=== PATIENT | female | born 1940 | race Caucasian/White ===

== ENCOUNTER 2025-04-01 01:29 | Inpatient (IN) | payer MEDICARE, BC, SELFPAY ==
[2025-03-31 22:17] VITALS: BP 155/63
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
[2025-03-31] MEDS: DILAUDID 0.5 MG IV (22:58)
[2025-03-31 23:00] VITALS: BP 127/87
[2025-03-31 23:02] VITALS: BP 127/87
[2025-03-31 23:12] LABS: % Basophils 0.6 % (0-2); % Eosinophils 1.6 % (0-6); % Lymphocytes 15.1 % (20.5-51.1); % Monocytes 5.3 % (1.7-9.3); % Neutrophils 76.4 % (42.2-75.2); Absolute Basophils 0.1 10^3/uL (0-0.2); Absolute Eosinophils 0.2 10^3/uL (0-0.7); Absolute Immature Granulocytes 0.1 10^3/uL (0-0.05); Absolute Lymphocytes 1.7 10^3/uL (1.2-3.4); Absolute Monocytes 0.6 10^3/uL (0.1-0.6); Absolute Neutrophils 8.6 10^3/uL (1.4-6.5); Hematocrit 34.6 % (37.0-47.0); Hemoglobin 11.7 g/dL (12.0-16.0); Mean Corp Hgb Conc. 33.8 g/dL (33.0-37.0); Mean Corpuscular Hgb 30.1 pg (27.0-31.0); Mean Corpuscular Volume 88.9 fL (81.0-99.0); Mean Platelet Volume 8.8 fL (7.4-10.4); Nucleated Red Blood Cells % 0 %; Platelet Count 335 10^3/uL (130-400); Red Blood Cell Count 3.89 10^6/uL (4.20-5.40); Red Cell Dist. Width 12.6 % (11.5-14.5); White Blood Cell Count 11.2 10^3/uL (4.8-10.8)
[2025-03-31 23:26] LABS: ALT (SGPT) 11 U/L (0-35); AST (SGOT) 19 U/L (14-36); Albumin 4.5 g/dl (3.5-5.0); Alkaline Phosphatase 115 U/L (38-126); Blood Urea Nitrogen 27 mg/dl (7-17); Calcium 9.8 mg/dl (8.4-10.2); Carbon Dioxide 25 mmol/L (22-30); Chloride 98 mmol/L (98-107); Glucose 114 mg/dl (70-99); Potassium 3.3 mmol/L (3.5-5.1); Sodium 135 mmol/L (135-145); Total Bilirubin 0.4 mg/dl (0.2-1.3); Total Protein 7.3 g/dl (6.3-8.2); eGFR 44.08
[2025-03-31] MEDS: KCL 40 MEQ PO (23:31)
[2025-04-01] VITALS (16 sets, daily range): BP systolic 83–134; BP diastolic 55–78
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
[2025-04-01] MEDS: DILAUDID 0.25 MG IV (03:54)
[2025-04-01] MEDS: D5/0.9% SODIUM CHLORIDE 1000 IV (03:55)
[2025-04-01] MEDS: TYLENOL 650 MG PO ×4 (03:55→20:28)
[2025-04-01] MEDS: LOPRESSOR 100 MG PO (09:18)
[2025-04-01] MEDS: LOPRESSOR 50 MG PO (09:19)
[2025-04-01] MEDS: NAMENDA 5 MG PO (09:19)
--- NOTE | 2025-04-01 11:48 | CM ---
Initial assessment completed with pt and family at bedside.
Pt is an 84yr old female who was admitted after a fall with R Hip fracture.
Pt is awaiting ortho evaluation, and currently NPO for possible surgery.
At baseline, Sussy lives with his daughter in a multi level home with 2ste with no railing.
Pts bed/full bath are on the second floor. There is a bench in the shower, with no railing.
At baseline, pt is indep and does not use equipment.
Pt has not used VN or SNF in the past.
SW spoke about SNF vs VN, and will continue to follow hospital course to determine dc plan.
Per daughter, there is a 1st floor set up available.
PCP; Carrie Zelaya
Pharm; [facility]
PLAN; Plan will be dependent on therapy
[2025-04-01] MEDS: TYLENOL PO (12:30)
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
--- NOTE | 2025-04-01 14:19 | W.IMMPOSTOP ---
Surgical Immed Post Op Note
-
Primary Surgeon: Lisa
Assisting Surgeon: Cheryl Pleitez PA-C
Pre-op Diagnosis: Right femoral neck fracture
Post-op Diagnosis: Same
Procedure Performed: Right hip hemiarthroplasty
Anesthesia Type: Spinal
Specimen / Cultures: None
Estimated Blood Loss: 20cc
Complications: None
Operative Findings: Dictated [id number]
Plan:
WBAT
ASA 325 for 30 days if there are no contraindications
PT/ OT
--- NOTE | 2025-04-01 15:46 | PTCARENOTE ---
Patient returned to her room from pacu post right hemiarthroplasty to repair her fractured hip.The patient is alert and drowsy.She denies any pain.Vital signs are stable.The right hip dressing is intact with a small amount of drainage.Neurovascular
assessment is within normal limits and ongoing.The patient is in her bed with the call juarez in reach.Her family is at the bedside.
[2025-04-01] MEDS: ANCEF 10 IV (16:20)
[2025-04-01] MEDS: LOPID 600 MG PO (17:12)
[2025-04-01] MEDS: ASPIRIN 325 MG PO (17:12)
[2025-04-01] MEDS: BACTROBAN 2% OINTMENT 1 APPLIC NASAL (20:28)
[2025-04-01] MEDS: ANCEF 5 IV (20:28)
[2025-04-01] MEDS: SENOKOT 17.2 MG PO (20:29)
[2025-04-01] MEDS: COLACE 100 MG PO (20:29)
[2025-04-01] MEDS: LOPRESSOR PO (20:30)
[2025-04-01] MEDS: D5/0.9% SODIUM CHLORIDE IV (21:00)
[2025-04-01] MEDS: ARICEPT 10 MG PO (22:18)
[2025-04-02] VITALS (28 sets, daily range): BP systolic 67–124; BP diastolic 45–82; PULSE 124–125; O2SAT 99; BMI 27.1
[2025-04-02] MEDS: TYLENOL 650 MG PO ×3 (03:47→11:41)
[2025-04-02] MEDS: ANCEF 5 IV (03:48)
[2025-04-02] MEDS: TYLENOL PO ×3 (04:00→19:17)
--- NOTE | 2025-04-02 04:10 | PTCARENOTE ---
Pt had wen placed in PACU for retention after hip surgery on 04/01. Wen patent throughout shift, clear yellow urine, @ this time Pt removed wen with balloon intact, was assisted to bedside commode and able to void without difficulty. PVR 97ml @
this time.
[2025-04-02] MEDS: ROXICODONE 2.5 MG PO (05:20)
[2025-04-02 06:21] LABS: Hematocrit 30.7 % (37.0-47.0); Hemoglobin 10.2 g/dL (12.0-16.0); Mean Corp Hgb Conc. 33.2 g/dL (33.0-37.0); Mean Corpuscular Hgb 29.3 pg (27.0-31.0); Mean Corpuscular Volume 88.2 fL (81.0-99.0); Platelet Count 264 10^3/uL (130-400); Red Blood Cell Count 3.48 10^6/uL (4.20-5.40); Red Cell Dist. Width 12.5 % (11.5-14.5); White Blood Cell Count 10.3 10^3/uL (4.8-10.8)
[2025-04-02 06:42] LABS: Blood Urea Nitrogen 24 mg/dl (7-17); Calcium 9.2 mg/dl (8.4-10.2); Carbon Dioxide 25 mmol/L (22-30); Chloride 106 mmol/L (98-107); Estimated Creatinine Clearance 25 ml/min; Glucose 111 mg/dl (70-99); Potassium 3.8 mmol/L (3.5-5.1); Sodium 138 mmol/L (135-145); eGFR 44.08
--- NOTE | 2025-04-02 08:30 | W.PN.ORTHO ---
Today's Communication / Plan
-
POD #1 s/p right hip hemiarthroplasty
-WBAT with walker.
-PT/OT to tolerance. Posterior THPs x 6 weeks.
-ASA 325 mg po daily x 4 weeks for DVT prophylaxis.
-Pain medication as needed. Minimize opioids due to dementia.
-Appreciate case management's efforts in d/c planning. Will await PT recommendations.
-Witter to be removed in 2 weeks. If at rehab facility, they may be removed there and she will f/u in outpatient office at 4 weeks.
Assessment
.
Distal Motor Intact: Yes
Dressing:
Clean, dry and intact.
Assessment:
POD #1 s/p right hip hemiarthroplasty
-WBAT with walker.
-PT/OT to tolerance. Posterior THPs x 6 weeks.
-ASA 325 mg po daily x 4 weeks for DVT prophylaxis.
-Pain medication as needed. Minimize opioids due to dementia.
-Appreciate case management's efforts in d/c planning. Will await PT recommendations.
-Lucian to be removed in 2 weeks. If at rehab facility, they may be removed there and she will f/u in outpatient office at 4 weeks.
Plan
.
Surgery / Date: 04/01/25 Right hip hemiarthroplasty - Dr. Gonzalez
DVT Prophylaxis: Aspirin
Activity:
Out of bed.
PT/OT
Subjective
.
.:
Patient resting comfortably in bed. Denies any pain at rest.
Vital Signs and Labs
.
Vital Signs and Labs:
Lab Results
04/02/25 05:55
04/02/25 05:55
Temp Pulse Resp BP Pulse Ox
98.8 F 113 17 105/65 93
04/02/25 07:19 04/02/25 07:19 04/02/25 07:19 04/02/25 07:19 04/02/25 07:19
Physical Exam
-
Right hip: Primaseal dressing in place. Mild amount of sangunious drainage noted. Gentle ROM hip with mild discomfort. Logroll without pain. Able to plantar/dorsiflex ankle without difficulty. Calf soft and non tender to palpation. N/v intact
distally.
[2025-04-02] MEDS: ASPIRIN 325 MG PO (08:49)
[2025-04-02] MEDS: SENOKOT 17.2 MG PO (08:49)
[2025-04-02] MEDS: NAMENDA 5 MG PO (08:51)
[2025-04-02] MEDS: BACTROBAN 2% OINTMENT 1 APPLIC NASAL (08:51)
[2025-04-02] MEDS: COLACE 100 MG PO (08:51)
[2025-04-02] MEDS: LOPRESSOR PO ×2 (10:16)
[2025-04-02] MEDS: AVAPRO PO (10:16)
--- NOTE | 2025-04-02 10:26 | W.PN.HOSP.TC ---
Today's Communication/Plan
-
Assessment / Plan
Assessment / Plan
NAD
Scleral Anicteric
MMM
No JVD
CTABL
RRR, S1/S2
Soft, NT, ND, BS+
Warm, Dry
AAOx3
Calm
Right hip fracture s/p ORIF on 04/01/2025
PT/OT
DVT prophylaxis per orthopedics
Analgesics per orthopedics
Incentive spirometer
Ankle pumps
Hypertension
Continue irbersartan
Hold hydrochlorothiazide
Hyperlipidemia continue gemfibrozil
Dementia
Continue donepezil
Anticipated Discharge: 24 - 48 hours
Subjective/Interval History
-
Date of Service: April 02, 2025
Seen and examined. Daughter bedside. No new complaints. No acute overnight events.
Tolerated surgery well
No abdominal pain back pain
Had a small bowel movement overnight passing gas
Tolerating diet well
Objective Data
-
Labs:
Laboratory Results
04/02/25
05:55
WBC 10.3
Hgb 10.2 L
Hct 30.7 L
Plt Count 264 D
Sodium 138
Potassium 3.8
Chloride 106
Carbon Dioxide 25
BUN 24 H
Creatinine 1.2 H
Glucose 111 H
Calcium 9.2
Vital Signs:
Vital Signs
Temp Pulse Resp BP Pulse Ox
98.8 F 113 17 105/65 93
04/02/25 07:19 04/02/25 10:16 04/02/25 07:19 04/02/25 10:16 04/02/25 07:19
I&O
04/01/25 04/02/25 04/03/25
06:59 06:59 06:59
Intake Total 650 / 650 890 / 890
Output Total 850 / 850 200 / 200
Balance -200 / -200 690 / 690
[2025-04-02] MEDS: D5/0.9% SODIUM CHLORIDE IV (11:41)
[2025-04-02] MEDS: LOPRESSOR 100 MG PO (12:03)
[2025-04-02] MEDS: AVAPRO 150 MG PO (12:03)
[2025-04-02] MEDS: LOPRESSOR 50 MG PO (12:03)
[2025-04-02] MEDS: COMPAZINE 5 MG PO (13:26)
--- NOTE | 2025-04-02 14:58 | PTCARENOTE ---
Addendum entered by Madeleine Bell RN 04/02/25 18:54:
Bolus administered, BP 67/45, HR 75, dizzy, and pale. Sumeet notified and came to evaluate. This nurse also requested hold parameters for BP meds. Midrodine administered. BP then dropped to 56/38, HR 70. MD ordered levo 2ml/hr and transfer to IMU.
This nurse gave IMU nurse report and another nurse was beginning levo when patient became unresponsive and family notified nurse. Patient had a weak pulse, code 9 was called. Team arrived and patient was transferred to ICU.
Addendum entered by Madeleine Bell RN 04/02/25 16:37:
Wayne Arzate finished shift, notified crossover, Sumeet Weaver, of situation, who order 1000cc NSS bolus, which is running at this time.
Addendum entered by Madeleine Bell RN 04/02/25 16:23:
500cc bolus administered. Immediately following administration, BP 66/45, HR 82. Dr. Wayne Arzate notified.
Original Note:
Irbesartan and Lopressor held this AM d/t 105/[address] Wayne Arzate was made aware. BP later was 124/80, HR 125, so blood pressure meds were given at 1200. At 1320, pt with complaints of nausea. Compazine was given. Patient then had an episode
of emesis, feeling faint/dizzy, and pale. BP 92/72, HR 85. Dr. Arzate made aware and gave verbal order for 500cc NSS bolus. Verbal order sent to pharmacy and VAT notified to place a new IV since patient's IV not working at this time.
[2025-04-02] MEDS: NSS 500 IV ×2 (15:41→16:35)
[2025-04-02] MEDS: ZOFRAN 4 MG IV (17:10)
[2025-04-02] MEDS: ProAmatine 10 MG PO (18:02)
--- NOTE | 2025-04-02 18:05 | W.PN.UPDATE ---
Addendum entered and electronically signed by Sumeet Weaver MD 04/02/25 18:16:
Patient continued to be hypotensive we will start Levophed and upgrade to IMU.
Original Note:
Update Note
Progress Note Update
Cross coverage note:
I was called by the patient's primary nurse for low blood pressure.
Patient was given 150mg irbesartan 150mg toprol at 12:00 for a BP 125/86,
blood pressure dropped to 92/72, HR 85, received 500 cc bolus
repeat BP 65/44, HR 86
I ordered 1 L fluid bolus.
after receiving the second bolus, still BP 67/45, HR 75. Patient was symptomatic with nausea, looking pale, and dizzy.
I came to examine the patient at bedside.
Patient looks tired, pale, still complaining of nausea.
Complaining of epigastric pain.
Blood pressure medications held.
Stat labs ordered including CBC/BMP/troponin/BNP
Stat chest x-ray ordered and x-ray abdomen.
Patient was complaining of shortness of breath, I ordered midodrine.
Continue IV fluid.
If blood pressure continue to be low plan to upgrade to IMU for Levophed.
[2025-04-02 18:21] LABS: Mean Corp Hgb Conc. 33.3 g/dL (33.0-37.0); Mean Corpuscular Hgb 30.7 pg (27.0-31.0); Mean Corpuscular Volume 92.2 fL (81.0-99.0); Platelet Count 233 10^3/uL (130-400); Red Blood Cell Count 2.93 10^6/uL (4.20-5.40); White Blood Cell Count 11.3 10^3/uL (4.8-10.8)
[2025-04-02] MEDS: LEVOPHED 250 IV ×2 (18:29→23:21)
[2025-04-02 18:47] LABS: Blood Urea Nitrogen 15 mg/dl (7-17); Calcium 4.4 mg/dl (8.4-10.2); Carbon Dioxide 7 mmol/L (22-30); Chloride 124 mmol/L (98-107); Estimated Creatinine Clearance 38 ml/min; Magnesium 1.2 mg/dl (1.6-2.3); Sodium 141 mmol/L (135-145); eGFR > 60.00
[2025-04-02 18:53] LABS: NT-proBNP 15500 pg/ml; Troponin I 0.724 ng/ml
--- NOTE | 2025-04-02 18:56 | W.PN.UPDATE ---
Update Note
Progress Note Update
code 9 note:
Code 9 called for patient being unresponsive.
Patient with labored breathing, undetectable blood pressure.
Levophed was started at 2 mcg/min
Pulse was faint, then undetectable.
Patient received 1 mg of epinephrine.
Received CPR 1 cycle for 2-minutes
ROSC achieved, patient intubated during code 9.
Blood pressure after ROSC was 181/111
Patient transferred to the ICU.
Patient was awake, following commands, holding hands and has eye contact.
Family updated at bedside.
--- NOTE | 2025-04-02 18:56 | W.PN.ANESINT ---
Anesthesia Intubation Note
- Intubation Note
Intubation Note:
Diagnosis: cardiorespiratory arrest
Blade: glidescope
Tube Size: 8.0 HiLo
Depth: 22cm
Side Taped: left side
Drugs Used: none
Grade View: grade 1 view via live glidescope
EtCO2 Present: ETCO2 color change present on ETCO2 detector
Atraumatic: atraumatic
Attempts: 2
Insertion Start and Stop Time:1836 start 1846
SaO2 Pre: unknown
SaO2 Post: unknown - code in progress
Glidescope Used: glidescope used
Other Airway Adjustments: none
Pre-Oxygenated: no
Portable Chest X-Ray: ordered
RSI: not required
Suctioned: when this [employer] ARCHITECT arrived to the room, suction was not set up. attempt to intubate, but patient began vomiting; poor view. waiting for suction to be set up, turned patient's head to the side. suction was then set up; oropharynx suctioned for
vomit, glidescope reinserted and ETT placed easily. ETCO2 color change present, good chest rise, no breath sounds over abdomen.
Bilateral Breath Sounds Confirmed: bilateral breath sounds were confirmed
Vent Settings:
Settings per __X_Attending Physician
Barbara Hess WE[employer] ARCHITECT
[2025-04-02 19:01] LABS: Glucose 1525 mg/dl (70-99)
[2025-04-02] MEDS: SUBLIMAZE 50 MCG IV ×2 (19:10→19:56)
[2025-04-02] MEDS: LOPID PO (19:17)
[2025-04-02] MEDS: COLACE PO (19:17)
[2025-04-02] MEDS: SENOKOT PO (19:17)
[2025-04-02] MEDS: DIPRIVAN 100 IV (19:18)
[2025-04-02 19:28] LABS: Glucose - Point of Care 122 mg/dl (70-99)
[2025-04-02 19:48] LABS: Hematocrit 30.4 % (37.0-47.0); Hemoglobin 9.8 g/dL (12.0-16.0); Mean Corp Hgb Conc. 32.2 g/dL (33.0-37.0); Mean Corpuscular Hgb 30.5 pg (27.0-31.0); Mean Corpuscular Volume 94.7 fL (81.0-99.0); Mean Platelet Volume 9.3 fL (7.4-10.4); Platelet Count 245 10^3/uL (130-400); Red Blood Cell Count 3.21 10^6/uL (4.20-5.40); Red Cell Dist. Width 12.8 % (11.5-14.5)
[2025-04-02 19:53] LABS: B.E. 11.9 mmol/L; HCO3 38.4 mmol/L (21-28); PCO2 62 mmHg (32-35); PO2 338 mmHg (83-108)
[2025-04-02 19:54] LABS: O2 Therapy Air vent
[2025-04-02 19:59] LABS: INR 1.98; PT 22.7 Sec (11.4-14.6)
[2025-04-02 20:00] LABS: APTT 41.5 Sec (23.4-35.0)
[2025-04-02] MEDS: LR 1000 IV (20:00)
[2025-04-02 20:04] LABS: Lactic Acid 9.1 mmol/L (0.7-2.0)
[2025-04-02 20:05] LABS: Blood Urea Nitrogen 23 mg/dl (7-17); Calcium 8.4 mg/dl (8.4-10.2); Carbon Dioxide 11 mmol/L (22-30); Chloride 108 mmol/L (98-107); Estimated Creatinine Clearance 20 ml/min; Glucose 164 mg/dl (70-99); Magnesium 2.4 mg/dl (1.6-2.3); Potassium 4.9 mmol/L (3.5-5.1); Sodium 136 mmol/L (135-145); Triglycerides 135 mg/dl (10-149); eGFR 33.73
[2025-04-02] MEDS: SUBLIMAZE 100 IV (20:08)
[2025-04-02] MEDS: PITRESSIN 100 IV (20:41)
[2025-04-02] MEDS: SODIUM BICARBONATE 1150 MEQ IV (20:53)
--- NOTE | 2025-04-02 21:11 | OR.RPT ---
Operative Report
Operative Report
Right IJ Central Line placement
Indication: Shock, need central access for multiple pressors
Consent: Emergent procedure, patient s/p cardiac arrest yes ma'am
Time-out was performed and patient was placed in Trendelenburg position. Ultrasound was used to assess patency of Right IJ vein. Under sterile conditions area was cleaned with chlorhexidine and then a full body drape was placed. 3 mL of local
anesthesia with lidocaine was injected. Under real-time ultrasound guidance, long axis view, the needle was inserted and vein was punctured, once blood was aspirated, syringe was removed and guidewire was advanced which did not meet any resistance.
Subsequently needle was withdrawn and guidewire was left in place. Ultrasound was used again to confirm presence of guidewire inside the vein lumen. A small bebeto was placed at the skin and a dilator was advanced to about 50% of its length.
Dilator was removed and central venous catheter was advanced over guidewire and subsequently guidewire was removed. All 3 ports were capped and they were easy to flush and were withdrawing blood without any resistance. Central line was sutured to
the skin and dressing was applied.
Ultrasound of the lungs was performed and good lung sliding was obtained.
Complications: None
Blood loss: 1-2 ml
Time spent: 25 min
Date of Service: 04/02/2025
--- NOTE | 2025-04-02 21:15 | CON.INTV ---
Consultation
Consultation Request
Date/Time Consultation Requested: 04/02/2025
Date/Time Consultation Performed: 04/02/2025
Requesting Provider: Sumeet Weaver
Performing Provider: Dimitrios Cabrera
Reason for Consultation: Cardiac arrest
Medical History
-
Chief Complaint: Cardiac arrest
History of Present Illness:
Patient is a 84-year-old female with history of dementia, hypertension and hyperlipidemia who had presented to emergency room on 04/01 after a fall. Patient was noted to have hip fracture and subsequently had open reduction internal fixation
performed on 04/01. Patient reportedly was doing well postop up until earlier this evening when a code 9 was called. Reportedly patient complained of some abdominal pain earlier and was noted to be hypotensive and then was unresponsive. Patient
noted to have agonal breathing during code and could not record a blood pressure and had very feeble to no pulse. CPR was initiated following which ROSC was achieved, patient received 1 cycle of CPR and 1 dose of epinephrine. Emergently intubated
by anesthesia service and subsequently was transferred to ICU. Director Hospice Operations consultation was requested for further input.
Past Medical History: Reports Dementia, HTN and Hypercholesterolemia
Past Surgical History: Reports Cholecystectomy, Gynocological (Partial hysterectomy) and Orthopedic (Lumbar spinal surgery, (unknown location at this time))
Social History
Tobacco: Former Smoker
Alcohol: None
Drug: None
Personal: Single
Living: With Family
Employment: Retired
Family History
Family History: Not pertinent
Allergies / Home Medications
Allergies / Home Medications
Allergies
Allergy/AdvReac Type Severity Reaction Status Date / Time
sulfur dioxide Allergy Unknown Verified 03/31/25 22:49
Home Medications
�Medication �Instructions �Recorded �Confirmed �Last Taken �Type
donepezil 10 mg tablet 10 mg PO HS Mental Health/Anxiety 04/01/25 04/01/25 Unknown History
gemfibrozil 600 mg tablet 600 mg PO HS High Cholesterol 04/01/25 04/01/25 Unknown History
hydrochlorothiazide 12.5 mg tablet 12.5 mg PO DAILY Fluid 04/01/25 04/01/25 Unknown History
Retention/Swelling
irbesartan 150 mg tablet 150 mg PO DAILY Blood Pressure 04/01/25 04/01/25 Unknown History
memantine 5 mg tablet 5 mg PO DAILY Mental Health/Anxiety 04/01/25 04/01/25 Unknown History
metoprolol tartrate 100 mg tablet 100 mg PO QPM Blood Pressure 04/01/25 04/01/25 Unknown History
metoprolol tartrate 100 mg tablet 150 mg PO DAILY Blood Pressure 04/01/25 04/01/25 Unknown History
Review of Systems
-
Unable to Obtain full review of systems at this time due to: Patient Intubation
Vitals / Labs / Diagnostic Testing
Vital Signs
Temp Pulse Resp BP Pulse Ox
95.8 F L 70 16 56/38 100
04/02/25 20:28 04/02/25 18:02 04/02/25 15:16 04/02/25 18:02 04/02/25 19:20
Lab Data
04/02/25 19:29
Laboratory Results
04/02/25 04/02/25
19:29 19:47
PT 22.7 H
INR 1.98
APTT 41.5 H
pH 7.40
pCO2 62 H
pO2 338 H
HCO3 38.4 H
O2 Delivery Level Air vent
Diagnostic Testing:
Physical Exam
-
HEENT: Normocephalic
Cardiovascular: S1/S2
Respiratory: Clear and Non-Labored Respirations
GI: Soft and Non Distended
Neurology: Other (Currently sedated with plan for following fentanyl, however pupils are responsive to light, equal, brainstem reflexes preserved, withdraws to pain)
Skin: Dry
General: Comfortable
Assessment
-
#1. Cardiac arrest with Shock
- Reportedly code 9 was called in the evening for unresponsiveness. Patient noted to have agonal breathing, undetectable blood pressure, undetectable pulse, s/p CPR x 1 cycle for about 2-minute following which ROSC was achieved. Patient received 1
dose of epinephrine. Emergently intubated by anesthesia service.
- Differential diagnosis broad including acute pulmonary embolism, acute MN, catastrophic stroke/bleed, bowel ischemia etc.
- Stat chest x-ray without any pneumothorax or acute changes, stat EKG was checked which did not show any ST elevation
- In the ICU, patient again developed hypotension however did not lose pulse and was given stat epinephrine pushes, bicarb pushes as well as IV calcium following which her blood pressure improved. Patient received 2 L fluid bolus followed by
isotonic bicarb infusion. Right IJ central line and left radial arterial line were placed.
- Levophed was titrated up to 18, vasopressin was subsequently added. Lactic acid level was noted to be elevated at 9.1. After fluid resuscitation and pressors, broad-spectrum antibiotics were started.
- Bedside zyaij-mu-[id number] ultrasound was performed by myself, which was suggestive of diastolic interventricular septal flattening and RV appears dilated raising concern for right heart failure, RV infarction versus underlying pulmonary embolism.
Start IV heparin and check stat CT head, chest, abdomen pelvis. If patient deteriorates or arrests again, will proceed with systemic thrombolysis.
- Arterial Blood gas in the ICU noted 7.4, 62, 338 on 100% FiO2. Patient currently intubated and mechanically ventilated, volume assist-control, 450, 22, 100% FiO2, PEEP of 5.
- Avoid hypoglycemia, Target normothermia. Patient was moving around all her extremities and was withdrawing to pain. Pupils were normal on both sides and were responsive to light. Brainstem reflexes preserved.
#2. Lactic acidosis
- S/p 2 L IV fluid bolus followed by continued IV hydration
- Blood cultures, followed by broad-spectrum antibiotics
- CT abdomen pelvis to evaluate for any bowel ischemia
- Continue pressors as needed to keep MAP above 65. Considering patient is already on 2 pressors, start stress dose steroids
- Follow serial lactate
#3. Hip fracture, s/p ORIF on
- Pain control
- At risk of VTE event
Other medical diagnoses:
- HTN
- HLD
- Dementia
Critical Care time 92 mins -- The patient is admitted for acute critical illness for the treatment of vital organ failure and/or prevention of further life-threatening conditions. Total care includes time spent in review of history, physical exam,
medications, hemodynamic/ventilator parameters, laboratory data, imaging and discussion with house staff, pharmacy, respiratory therapy, personal financial advisor, and nursing.
Discussed cussed with primary team hospitalist. Also updated patient's family member in the ICU, CODE STATUS confirmed as full code. Patient reevaluated multiple times.
Data:
CXR 03/2025: Unremarkable
KUB 03/2025: No acute change
Hip X ray 03/2025: Acute displaced right hip fracture
Moderate right hip osteoarthritis.
Mild bony mineralization.
Moderate fecal material in the colon
--- NOTE | 2025-04-02 21:30 | PTCARENOTE ---
Responded to CODE 9 in room 2113 at approx 1830. See code 9 sheet.
Transferred pt to ICU room 3366, intubated/restrained. Pt awake, eyes open, nodding head seemingly appropriately when asked 'yes'/'no' questions. Complete CHG bath provided. Light Armored Vehicle Officer CORRECTIONAL CASEWORK SPECIALIST, Neto, at bedside and placed L radial arterial line.
Dr Cabrera at bedside and placed R IJ TL catheter. PCXR obtained. Dr Cabrera spoke w pt's son and daughter and other family members.
Pt intubated/sedated/restrained. #8 ETT secured at 24cm to L lip, vent settings 14/400/100%/+5, pox 100%, lung sounds with exp wheeze throughout and fine crackles in R base. Telemetry rhythm reveals SR, HR 80-90's, trace edema RLE, doppler pulses,
all extremities pale/cold/poor cap refill. Levophed initiated prior to code team's arrival, titrating per parameters. Vasopressin, Propofol and Fentanyl infusions all initiated in ICU. +BS, abdomen soft round. Incontinent large liquid brown stool.
Thermistor Ny catheter placed upon arrival to ICU, small amount hua urine immediately drained. R hip aquacell dressing in place, small area of old drainage shadowing noted. R AC and R FA int's flushed and patent. L hand int initially difficult
to flush, redressed line, int able to be flushed, capped. L radial arterial line correlates to noninvasive BP cuff within 15-20mmHg.
Brief update provided to pt's family members at bedside.
--- NOTE | 2025-04-02 21:39 | PHA.VAN.IN ---
Assessment
- Assessment
Renal Function: SCR Appears Elevated from baseline
Maximum Temperature: 98.9
Minimum Temperature: 95.8
Plan
- Plan
Initial / Loading Dose: 1500mg on 04/02
Maintenance Regimen: Dose by level
Monitoring: Random level with am labs
Pharmacokinetics Vancomycin I
- -
Patient Age: 84
Patient Sex: Female
Vancomycin Day #: 1
Indication: Pulmonary/Respiratory
Requesting Provider: Mara MA
Pertinent Antimicrobial Allergies:
SULFA
Height / Weight:
Height 5 ft 1 in
Actual Weight 59.8 kg
- Vital Signs / Lab Results
Temp Pulse Resp BP Pulse Ox
95.8 F L 70 16 56/38 100
04/02/25 20:28 04/02/25 18:02 04/02/25 15:16 04/02/25 18:02 04/02/25 19:20
Lab Results - Hematology
03/31/25 04/02/25 04/02/25
23:02 05:55 18:14
WBC 11.2 H 10.3 11.3 H
04/02/25
19:29
WBC 16.0 H
Lab Results - Chemistry
03/31/25 04/02/25 04/02/25
23:02 05:55 18:13
BUN 27 H 24 H 15
Creatinine 1.2 H 1.2 H 0.8
Estimated Creat Clear 25 38
Albumin 4.5
04/02/25 04/02/25 04/02/25
19:29 19:29 19:29
BUN 23 H Cancelled
Creatinine 1.5 H Cancelled
Estimated Creat Clear 20
Albumin
04/02/25
19:29
BUN
Creatinine
Estimated Creat Clear Cancelled
Albumin
04/02/25
19:35
Lactic Acid 9.1 H*
--- NOTE | 2025-04-02 21:46 | W.PN.UPDATE ---
Update Note
Progress Note Update
Code 9 called 1830 for agonal breathing and hypotension, no palpable pulse; Hospitalist Dr. Sumeet Weaver at bedside. See code 9 sheet for full details. Patient was intubated during code 9 and levophed gtt initiated for hypotension. Patient after
code was moving head, blink eyes, tracking examiner's voice, and lifting hands bilaterally to the ETT. Family was updated by hospitalist and patient transported to ICU. History of hypertension, hyperlipidemia, and mild to moderate dementia
presented to the ER following a mechanical fall subsequent right femoral neck fracture. She had Right hip hemiarthroplasty surgery on 04/01/25. She was also complaining of abdominal pain along with hypotension just prior to code event. Differential
includes: pulmonary embolism, intraabdominal bleeding/injury, ischemia gut/bowel, and infection.
Patient was transported to ICU and case was reviewed with Dr. Cabrera, profiling machine set up operator. Patient hypotensive levophed gtt at lower dosage 4-6mcg. Recommendations received to obtain Ctscan head, PE study, Abdomen/pelvis. Labs reviewed post code and
seemed grossly abnormal, especially the glucose >1500, from where the previous labs were trending. Decision was to repeat all code labs.
Patient became unstable at 1945 pulse thready/weak, HR slow afib/junctional rate 40s, hypotensive and quickly levophed gtt was increased to 18mcg rapidly, dosage of epinephrine push IV, bicarb x2 50meq IV push, and calcium IV. The pulse was never
lost and heart rate recovered back up to 80s and BP increased 100s with adjustments in levophed and after bicarb pushes. Dr. Cabrera, profiling machine set up operator was called and updated on recent events. Dr. Cabrera came to bedside for further evaluation of patient
and to place central catheter. Left radial galilea was inserted by ut. Right IJ TLC was placed by Dr. Cabrera. Chest xray confirmed central line access. Vasopressin gtt added for hypotension. Lactic 9.1, no report of fever but patient is
hypothermic, concern with abdominal pain possible infection, will sanchez culture: blood cultures, trend lactic, UA, sputum, influenza/covid, etc. Chest xray No infiltrates, pleural effusions, or pneumothorax. Broad spectrum antibiotics intiated:
zosyn and vancomycin IV. Bedside echo done by Dr. Cabrera, concerning for right heart strain, could be indication of pulmonary embolism. Heparin gtt PE protocol ordered with bolus for initiation. Risk/benefit reviewed with Dr. Cabrera with
patient's recent hip surgery vs life threatening pulmonary embolism which has ultimately contributing to cardiac arrest, outweighs risk of bleeding from surgical site. Patient transported to Ctscan for head/chest PE/abdomen/pelvic imaging. US
bilateral legs r/o DVT and echo cardiogram. Cardiology Dr. Bonds, consulted, agreed with current plan of care.
CT head negative for intracranial abnormalities. CTA chest/abdomen/pelvis- No pulmonary embolism. No aortic aneurysm or dissection. Small volume abdominopelvic ascites. Prominent fluid about the proximal pancreas without overt parenchymal edema.
Acute pancreatitis is felt to be unlikely. Recommend correlation with lipase levels. Probable enteritis/ileus. Periportal edema. Ill-defined heterogeneous hypoattenuation within the right hepatic lobe dome. Underlying mass not excluded. Recommend
nonemergent workup with dedicated MRI abdomen without and with gadolinium contrast. Will check amylase and lipase labs. Heparin gtt was not initiated yet, changed to ACS protocol instead of PE.
Family requested update after results of Ctscans, update given, went over plan of care, and answered all questions.
--- NOTE | 2025-04-02 22:25 | W.PN.UPDATE ---
Update Note
Progress Note Update
ARTERIAL LINE (A-Line) PLACEMENT
Date: 04/02/25
Time: 1999
Indication: Hemodynamic monitoring, consent emergent placement- implied
A time-out was completed verifying correct patient, procedure, site, positioning, and special equipment if applicable. Dipesh�s test was performed to ensure adequate perfusion. The patient�s left wrist was prepped and draped in sterile fashion. A 20G
Arrow arterial line was introduced into the radial artery. The catheter was threaded over the guide wire and the needle was removed with appropriate pulsatile�blood return. The catheter was secured with a sterile dressing. Perfusion to the
extremity distal to the point of catheter insertion was checked and found to be adequate.
Estimated Blood Loss: <5cc
The patient tolerated the procedure well and there were no complications.
[2025-04-02] MEDS: FLUSH (NSS) 2 FLUSH IV (23:24)
[2025-04-02 23:51] LABS: B.E. -12.2 mmol/L; O2 Saturation % 99.8 % (94-98); PCO2 33 mmHg (32-35); PO2 171 mmHg (83-108); pH 7.24 (7.35-7.45)
[2025-04-02 23:54] LABS: HCO3 14.1 mmol/L (21-28)
[2025-04-02 23:55] LABS: Hematocrit 29.4 % (37.0-47.0); Hemoglobin 9.9 g/dL (12.0-16.0); Mean Corp Hgb Conc. 33.7 g/dL (33.0-37.0); Mean Corpuscular Hgb 30.2 pg (27.0-31.0); Mean Corpuscular Volume 89.6 fL (81.0-99.0); Platelet Count 231 10^3/uL (130-400); Red Blood Cell Count 3.28 10^6/uL (4.20-5.40); Red Cell Dist. Width 12.7 % (11.5-14.5); White Blood Cell Count 17.3 10^3/uL (4.8-10.8)
[2025-04-03] VITALS (12 sets, daily range): BP systolic 74–134; BP diastolic 53–71; BMI 27.8
[2025-04-03] MEDS: VANCOCIN 530 MG IV
[2025-04-03] MEDS: TYLENOL PO ×3 (00:04→07:48)
[2025-04-03 00:09] LABS: APTT 44.3 Sec (23.4-35.0); Lactic Acid 9.2 mmol/L (0.7-2.0)
[2025-04-03] MEDS: HEPARIN 3600 UNITS IV (00:14)
[2025-04-03] MEDS: HEPARIN 25000 UNITS/250 ML IV (00:16)
[2025-04-03] MEDS: SOLU-CORTEF 50 MG IV ×4 (00:19→17:06)
--- NOTE | 2025-04-03 00:30 | PTCARENOTE ---
Transported pt to CT. Pt had large liquid brown stool, incontinence care provided. Upon arrival back to ICU FMS was placed.
Pt's core temp 94.9-95.8F since arrival to ICU. Warm blankets and carlos hugger in use.
Heparin infusion ordered and initiated.
Repositioning pt Q2H for skin integrity.
See worklist for med titration details.
Will continue to monitor closely.
[2025-04-03 00:44] LABS: Urine Albumin 3+ (Neg - Trace); Urine Bilirubin Negative (Negative); Urine Character Cloudy (Clear); Urine Color Yellow; Urine Glucose Negative (Negative); Urine Ketone Negative (Negative); Urine Leukocyte 1+ (Negative); Urine Nitrite Negative (Negative); Urine Occult Blood 4+ (Negative); Urine Urobilinogen Negative (Neg - 1+)
[2025-04-03 00:49] LABS: COVID-19 Antigen Negative (Negative)
[2025-04-03 01:15] LABS: Urine Bacteria Moderate (Negative)
[2025-04-03] MEDS: BACTROBAN 2% OINTMENT 1 APPLIC NASAL (01:35)
[2025-04-03] MEDS: ZOSYN 50 IV ×4 (01:35→17:06)
[2025-04-03] MEDS: LEVOPHED 250 IV ×3 (04:02→21:20)
[2025-04-03 04:12] LABS: Hemoglobin 10.2 g/dL (12.0-16.0); Mean Corp Hgb Conc. 32.9 g/dL (33.0-37.0); Mean Corpuscular Volume 91.2 fL (81.0-99.0); Mean Platelet Volume 9.6 fL (7.4-10.4); Platelet Count 262 10^3/uL (130-400); Red Cell Dist. Width 12.6 % (11.5-14.5); White Blood Cell Count 18.9 10^3/uL (4.8-10.8)
[2025-04-03 04:19] LABS: Lactic Acid 9.6 mmol/L (0.7-2.0)
--- NOTE | 2025-04-03 05:19 | PTCARENOTE ---
Randee pemberton placed on standby 0400 when goal temp reached.
Continuing to taper pressors as able per protocol.
No other changes noted at this time. Will continue to monitor closely.
[2025-04-03] MEDS: FLUSH (NSS) 2 FLUSH IV (05:27)
[2025-04-03] MEDS: PITRESSIN 100 IV (05:30)
[2025-04-03] MEDS: DIPRIVAN 100 IV ×2 (05:39→18:16)
[2025-04-03] MEDS: SODIUM BICARBONATE 1150 MEQ IV ×2 (06:03→17:05)
[2025-04-03 06:08] LABS: ALT (SGPT) 2204 U/L (0-35); AST (SGOT) 6930 U/L (14-36); Albumin 2.6 g/dl (3.5-5.0); Alkaline Phosphatase 90 U/L (38-126); Amylase 260 U/L (30-110); Blood Urea Nitrogen 24 mg/dl (7-17); Calcium 8.5 mg/dl (8.4-10.2); Carbon Dioxide 8 mmol/L (22-30); Chloride 108 mmol/L (98-107); Direct Bilirubin 0.7 mg/dl (0.0-0.4); Estimated Creatinine Clearance 19 ml/min; Glucose 198 mg/dl (70-99); Lipase 219 U/L (23-300); Magnesium 2.1 mg/dl (1.6-2.3); Phosphorus 6.9 mg/dl (2.5-4.5); Potassium 4.9 mmol/L (3.5-5.1); Sodium 136 mmol/L (135-145); Total Protein 4.6 g/dl (6.3-8.2)
[2025-04-03 06:34] LABS: B.E. -13.9 mmol/L; O2 Saturation % 99.9 % (94-98); PCO2 27 mmHg (32-35); PO2 178 mmHg (83-108); pH 7.25 (7.35-7.45)
[2025-04-03 06:39] LABS: HCO3 11.8 mmol/L (21-28)
[2025-04-03 06:44] LABS: APTT 54.7 Sec (23.4-35.0)
[2025-04-03 06:53] LABS: Lactic Acid 8.6 mmol/L (0.7-2.0)
[2025-04-03 07:07] LABS: Vancomycin Random 20.4 ug/ml
--- NOTE | 2025-04-03 07:57 | W.PN.INTV ---
Today's Communication / Plan
Recommendations
Continue volume-cycled mechanical ventilation, aiming for plateau pressure <30
Low level of sedation with goal RASS 0 to -2 with plans to do SAT/SBT tomorrow morning
Follow-up echo, and defer ischemic evaluation to cardiology depending on continued hospital course
Replete K>4, Mg>2
Trend lactate level until <2 mmol/L, and trend serum creatinine while renally adjusting all medications/antibiotics
Family members present today at bedside and all questions were answered and the patient recognized her family as well.
Continue ICU level care for this critically ill patient
Assessment
-
#1. Cardiac arrest with Shock
- Reportedly code 9 was called in the evening of 04/02 on the floor for unresponsiveness. Patient noted to have agonal breathing, undetectable blood pressure, undetectable pulse, s/p CPR x 1 cycle for about 2-minute following which ROSC was achieved.
Patient received 1 dose of epinephrine. Emergently intubated by anesthesia service.
- Differential diagnosis broad including acute pulmonary embolism, acute CT, catastrophic stroke/bleed, bowel ischemia etc.
- Stat chest x-ray without any pneumothorax or acute changes, stat EKG was checked which did not show any ST elevation
- In the ICU, patient again developed hypotension however did not lose pulse and was given stat epinephrine pushes, bicarb pushes as well as IV calcium following which her blood pressure improved. Patient received 2 L fluid bolus followed by bicarb
infusion. Right IJ central line and left radial arterial line were placed by Dr. Cabrera
- Continue with Levophed + vasopressin and maintain MAP >65�70, aiming for higher BP goals to adequately perfused tissue
- Once Levophed requirements reach 5mcg/min, then would stop vasopressin so that we have tighter control over vasopressors
- Continue stress dose steroids of hydrocortisone 50 mg IV q6hr
- Continue bicarb drip
- Continue broad-spectrum antibiotics with Vanco/Zosyn
- Hold home antihypertensives
- Check official echo as bedside PocUS performed on the evening of 04/[address] Cabrera showed an dilated RV and had concern for an acute PE. Heparin drip started and CTA chest, abdomen, pelvis obtained. No PE seen on imaging. Small amount of
ascites with suspected enteritis/ileus, and an ill-defined heterogeneous hypoattenuation within the right hepatic lobe dome.
- Given that the CTA chest was negative for an acute PE, I am now more concerned that she had acute coronary syndrome as a cause of her arrhythmia --> ideally would want cardiology to perform left heart catheterization. Continue with heparin gtt
and continue aspirin for now (give rectally as OGT still has output and she remains on suction)
- After her cardiac arrest, she was reaching for the ET tube and today (04/03) she is awake, alert and following commands despite being on sedation. No need for therapeutic hypothermia or targeted temperature management.
#2. Acute hypoxic + hypercapnic respiratory failure now on mechanical ventilation
- Continue with mechanical ventilation with daily SAT/SBT if clinically appropriate
- Maintain plateau pressure <30 and titrate FiO2 + PEEP to keep SpO2 >90-94%
- Continue aspiration precautions; keep HOB >30-45�
- prn nebulized bronchodilators - not currently bronchospastic
- Oropharyngeal + deep ETT suctioning with subglottic as needed
- Daily CXR + blood gas
- Daily vent adjustments as needed based on blood gas and SaO2
- Low level of sedation with goal RASS as 0 to -2
#3. Pneumonia, likely aspiration due to cardiac arrest
- CXR after her cardiac arrest shows increased patchy opacification in the right base as well as retrocardiac opacification. Suspect that this is due to aspiration pneumonia
- Continue with antibiotics as above
- Monitor ETT secretions
- Trend WBC and monitor fever curve
#4. Lactic acidosis
- S/p 2 L IV fluid bolus followed by continued IV hydration
- Blood cultures x2 checked on 04/02, urine culture checked today and sputum culture also checked today � follow-up results; continue broad-spectrum antibiotics with vanc/zosyn
- No bowel ischemia on Ct A/P form 04/02
- Continue pressors as needed to keep MAP above 65. Continue stress dose steroids
- Follow serial lactate until <2mmol/L
#5. Right-sided femoral neck fracture s/p hemiarthroplasty - OR date: 04/01/2025
- Pain control
- Postoperative management as per orthopedic surgery
Other medical diagnoses:
- HTN
- HLD
- Dementia
Patient's [id number], Porsche, patient's granddaughter, Kaylee, and the patient's grandson, Jaron, all present today at bedside and all questions were answered.
Critical care statement: A total of 43 minutes of critical care time was provided for this patient today. This includes management of unstable vital signs, evaluation of the patient at bedside, reviewing the patient's pertinent medical records
including radiographs, microbiology, laboratory evaluations, and discussion with primary team, consultants, pharmacy, nutrition, physical therapy, case management, charge nurse, critical care nursing, and respiratory therapy.
Data:
CXR 03/2025: Unremarkable
KUB 03/2025: No acute change
Hip X ray 03/2025: Acute displaced right hip fracture
Moderate right hip osteoarthritis.
Mild bony mineralization.
Moderate fecal material in the colon
Subjective Dataa
Subjective Data
Date of Service:
Date of Service: April 03, 2025
Chief Complaint: Cruise Coordinator Follow Up
Subjective:
Yesterday, pt became unresponsive while MD was in room. She was hypotensive at the time - levophed was being started. Code 9 called - ROSC obtained fairly quickly. Brought to ICU where she continues to be managed.
This AM she remains intubated. Easily awakening/following commands. Sedated on propofol at 10mcg/kg/min and fentanyl at 25mcg/hr. Heart rate 74, BP 116/64 via NIBP, BP via A-line: 142/67, saturating 99% on AC/CMV at 22/400/40%/5 with PIP 24 cH2O,
VTe 364 cc and breathing at 22 breaths/min. Minimal ETT secretions, although had thick, duggan secretins last night. OG tube output from overnight around 300 cc. Currently on Levophed at 7 mcg/min and bicarb drip at 100 cc/hr. Had diarrhea
yesterday while pt was at CT scan.
Review of Systems
General: Other (Unobtainable as patient is intubated)
Objective Data
Data Reviewed
Vital Signs / I&O / Oxygen:
Vital Signs
Temp Pulse Resp BP Pulse Ox
97.8 F 65 22 88/71 97
04/03/25 08:03 04/03/25 08:00 04/03/25 08:00 04/03/25 06:00 04/03/25 08:00
Intake and Output
04/02/25 04/03/25 04/04/25
06:59 06:59 06:59
Intake Total 650 / 650 4413.9 / 4571.8 315.8 / 315.8
Output Total 850 / 850 245 / 245 3 / 3
Balance -200 / -200 4168.9 / 4326.8 312.8 / 312.8
SaO2 [A/C] 97
SaO2 97
Nasal Cannula flow liters per 2
minute
Physical Exam
General: Respiratory Distress (negative), Comfortable, Chills (negative) and Sweats (negative)
HEENT: Normocephalic, Anicteric and Other (ETT in place)
Cardiovascular: S1-S2 and Peripheral Edema (negative)
Respiratory: Wheeze (negative), Crackles (negative), Rhonchi (negative), Non-Labored Respirations, Stridor (negative) and ET Tube (Mechanical breath sounds heard bilaterally)
GI: Soft, Non Distended and Normal Bowel Sounds
Neurology: Tremors (negative) and Other (Sedated but easily arousable and following all commands)
Skin: Warm, Dry, Cyanosis (negative) and Jaundice (negative)
Labs/Micro/Reports
Lab Data
04/03/25 03:51
Laboratory Results
04/02/25 04/02/25 04/02/25
19:29 19:47 20:51
PT 22.7 H
INR 1.98
APTT 41.5 H Cancelled
pH 7.40
pCO2 62 H
pO2 338 H
HCO3 38.4 H
O2 Delivery Level Air vent
04/02/25 04/03/25
23:44 06:11
PT
INR
APTT 44.3 H 54.7 H
pH 7.24 L 7.25 L
pCO2 33 27 L
pO2 171 H 178 H
HCO3 14.1 L* 11.8 L*
O2 Delivery Level
Microbiology
04/03/25 00:26 Nasal Swab Influenza Types A & B (ADÁN) - Final
Negative for Influenza A & B, NAAT
Negative results must be combined with clinical observations
and patient history.
Nucleic Acid Amplification test (NAAT)performed on the
[employer] platform.
--- NOTE | 2025-04-03 08:01 | W.CON.NEPH ---
Consultation
-
Date/Time Consultation Requested: 04/03/2025 738 AM
Date/Time Consultation Performed: 04/03/2025 8:00
Requesting Provider: Dr. Wallace
Performing Provider: Dr. Liz
Reason for Consultation: ALYSSIA/ Metabolic Acidosis
Medical History
-
Chief Complaint: ALYSSIA metabolic acidosis
History of Present Illness:
This is a 84-year-old with past medical history of moderate dementia (donezepil), hypertension (on ARB/HCTZ/Metoprolol) and hyperlipidemia (gemfibrozil) presenting to the emergency department following a mechanical fall.
Patient was at a wedding ceremony s/p fall .White count was 11.6 hemoglobin 9.7 and platelet count 5. Sodium was 135 potassium 3.3 chloride 98 bicarb 25 with a BUN/creatinine of 27 and 1.2 respectively. X-ray of the hip shows a right femoral neck
fracture. She underwent reduced internal fixation for hip fracture on April 01, 2025. Postoperatively the patient developed abdominal pain and became abruptly hypotensive and then unresponsive. CPR was initiated she was then transferred to the
intensive care. Patient now has acute kidney injury with her creatinine climbing up from 1.2 on admission to 1.8 with profound gap to lactic acidosis . Nephrology was consulted for her acute kidney injury and metabolic acidosis.
Past Medical History
Dementia, hyperlipidemia, hypertension, cholecystectomy, partial history of
Social History
Tobacco: Former Smoker
Alcohol: None
Living: With Family
Family History
Family History: Not Pertinent
Allergies / Home Medications
Allergy/AdvReac Type Severity Reaction Status Date / Time
sulfur dioxide Allergy Unknown Verified 03/31/25 22:49
�Medication �Instructions �Recorded �Confirmed �Type
donepezil 10 mg tablet 10 mg PO HS Mental Health/Anxiety 04/01/25 04/01/25 History
gemfibrozil 600 mg tablet 600 mg PO HS High Cholesterol 04/01/25 04/01/25 History
hydrochlorothiazide 12.5 mg tablet 12.5 mg PO DAILY Fluid 04/01/25 04/01/25 History
Retention/Swelling
irbesartan 150 mg tablet 150 mg PO DAILY Blood Pressure 04/01/25 04/01/25 History
memantine 5 mg tablet 5 mg PO DAILY Mental Health/Anxiety 04/01/25 04/01/25 History
metoprolol tartrate 100 mg tablet 100 mg PO QPM Blood Pressure 04/01/25 04/01/25 History
metoprolol tartrate 100 mg tablet 150 mg PO DAILY Blood Pressure 04/01/25 04/01/25 History
Review of Systems
-
Unable to obtain full review of systems at this time due to: Patient Intubation
History Source: Patient
All other systems: Negative unless noted
Physical Exam
Vital Signs
Vital Signs
Temp Pulse Resp BP Pulse Ox
97 F 63 22 88/71 100
04/03/25 04:00 04/03/25 07:30 04/03/25 07:30 04/03/25 06:00 04/03/25 07:35
Lab Results
04/03/25 03:51
04/03/25 03:51
WBC 18.9 10^3/uL (4.8-10.8) H 04/03/25 03:51
RBC 3.40 10^6/uL (4.20-5.40) L 04/03/25 03:51
Hgb 10.2 g/dL (12.0-16.0) L 04/03/25 03:51
Hct 31.0 % (37.0-47.0) L 04/03/25 03:51
Plt Count 262 10^3/uL (130-400) 04/03/25 03:51
Sodium 136 mmol/L (135-145) 04/03/25 03:51
Potassium 4.9 mmol/L (3.5-5.1) 04/03/25 03:51
Chloride 108 mmol/L (98-107) H 04/03/25 03:51
Carbon Dioxide 8 mmol/L (22-30) L* 04/03/25 03:51
BUN 24 mg/dl (7-17) H 04/03/25 03:51
Creatinine 1.8 mg/dL (0.6-1.0) H 04/03/25 03:51
eGFR 27.10 04/03/25 03:51
Glucose 198 mg/dl (70-99) H 04/03/25 03:51
Calcium 8.5 mg/dl (8.4-10.2) 04/03/25 03:51
Phosphorus 6.9 mg/dl (2.5-4.5) H 04/03/25 03:51
Qvr-O-Qxfgjwoleth Pept 71749 pg/ml 04/02/25 18:14
Albumin 2.6 g/dl (3.5-5.0) L D 04/03/25 03:51
Physical Exam
General: intubated and sedated
HEENT: NGT, ET tube
Respiratory: Clear to auscultation bilaterally with normal lung excursion
Cardiac: S1/S2 and Regular Rate/Rhythm
Breast: Deferred by me
Abdomen: Soft, Nontender, Nondistended, decreased Bowel Sounds and No Hepatosplenomegaly
Rectal: Deferred by Provider
Genito-urinary: Wen
Extremities: No Clubbing, No Cyanosis and No Edema
Skin: No Rash or open lesions
Neuro: Nonfocal/Grossly unabel to evaluate
Hematologic/Lymphatic: No Cervical Lymphadenopathy, No Submandibular Lymphadenopathy and No Supraclavicular Lymphadenopathy
Psych: unobtainable
Vascular: plus 2 pedal and radial pulses
Data Reviewed
-
Radiology: Image Personally Visualized and interpreted (Chest x-ray personally reviewed no evidence of congestive heart failure no evidence of pneumothorax no evidence of pneumonic infiltrate)
Medical Tests (Nuc Med, Echo etc): Other (EKG report reviewed sinus rhythm with PACs left axis deviation inferior infarct possible anterior lateral infarct pattern prolonged QT at 66 beats per)
Labs: Labs Reviewed by me (SHAWN CBC)
Assessment/Plan
-
Impression:
Admission for hip fracture
Cardiac arrest status post surgery
ALYSSIA (4 plus blood and 3 plus albumin)
Gapped metabolic acidosis (lactic acid ~ 8) acidemia
Hypertension
Dementia
Dyslipidemia
Left renal atrophy (noted by CT)
VDRF
Plan:
ALYSSIA:
-likely pre renally mediated insetting of post op hypotension in addition to CT with IV contrast for angiogram performed on 04/02/2025
- Maintain sodium bicarbonate infusion in setting of gap and nongap metabolic acidosis
- Maintain MAP of 65 or greater with pressors and isotonic IV fluid
- maintain wen
-Zosyn dosage needs to be adjusted for GFR below 40
-No acute dialysis indication yet
-recheck bmp at noon
- Patient remains critically ill with hemodynamic instability requiring pressor support VDRF as well as profound metabolic acidosis with subsequent acidemia
-45 minutes critical care time spent with
Total Time Spent with Patient (in minutes): 45
--- NOTE | 2025-04-03 08:30 | PTCARENOTE ---
Rec'd care of patient at 0700. Patient intubated and sedated. Pupils equal and reactive; +2mm. Opening eyes to verbal stimuli and following commands. MAEx4. NSR with prolonged QT interval on tele. Trace edema in b/l LE. RLE neurovascular check as
charted on worklist. Right hip dressing intact. +DP and PT pulses bilaterally. #8.0 ett @ 24cm. Vent settings: A/C 22/400/40%. Lung sounds coarse/diminished throughout. Hypo BS. FMS placed overnight for large amount of liquid brown stool. OGT to
LIS; large amount of dark brown output. Ny for critical I/O. Output <5 cc/hr. Left radial galilea leveled and zeroed. Levo/Vaso/Fent/Prop/Heparin/Bicarb infusing through RIJ.
--- NOTE | 2025-04-03 09:02 | W.PN.UPDATE ---
Update Note
Progress Note Update
Appreciate all involved in this patient's care. Unfortunately she coded last evening. She was doing well postoperatively from right hip hemiarthroplasty on 01 April (Lisa). patient currently intubated. A-line in place. Advanced diagnostics negative
for PE or other acute processes. Per nursing patient did suffer organ wide insult from last night's events. Afeb. Hgb 10.2. Right hip dressing in place with mild strikethrough. Expected postop changes. Calf is supple. Pulses palpable distally.
Will follow along peripherally for now- again, appreciate her ongoing care.
[2025-04-03 10:11] LABS: Lactic Acid 7.8 mmol/L (0.7-2.0)
--- NOTE | 2025-04-03 10:11 | CON.CAR ---
Consultation
Consultation Request
Date/Time Consultation Requested: April 02 2025, 8:50 pm
Date/Time Consultation Performed: April 03 2025, 8:30 am
Requesting Provider: hospitalist
Performing Provider: Néstor Conte
Reason for Consultation: cardiac arrest
Medical History
-
Chief Complaint: cardiac arrest
History of Present Illness:
84-year-old female with history of dementia, hypertension and hyperlipidemia who had presented to emergency room on 04/01 after a fall. Patient is intubated and sedated, thus, history is obtained from chart review. Patient was noted to have hip
fracture and subsequently had open reduction internal fixation performed on 04/01. She had a subsequent cardiac arrest post-op. She is now intubated and sedated requiring vasopressor support in the ICU. She received 1 round of CPR.
Past Medical History
Past Medical History: Other (Dementia, HTN and Hypercholesterolemia)
Past Surgical History: Other (Cholecystectomy, Gynocological (Partial hysterectomy) and Orthopedic (Lumbar spinal surgery, (unknown location at this time)))
Social History
Tobacco: Former Smoker
Alcohol: None
Drug: None
Personal: Single
Living: With Family
Family History
Family History: Reviewed & Not Pertinent
Allergies / Home Medications
Allergy/AdvReac Type Severity Reaction Status Date / Time
sulfur dioxide Allergy Unknown Verified 03/31/25 22:49
�Medication �Instructions �Recorded �Confirmed �Type
donepezil 10 mg tablet 10 mg PO HS Mental Health/Anxiety 04/01/25 04/01/25 History
gemfibrozil 600 mg tablet 600 mg PO HS High Cholesterol 04/01/25 04/01/25 History
hydrochlorothiazide 12.5 mg tablet 12.5 mg PO DAILY Fluid 04/01/25 04/01/25 History
Retention/Swelling
irbesartan 150 mg tablet 150 mg PO DAILY Blood Pressure 04/01/25 04/01/25 History
memantine 5 mg tablet 5 mg PO DAILY Mental Health/Anxiety 04/01/25 04/01/25 History
metoprolol tartrate 100 mg tablet 100 mg PO QPM Blood Pressure 04/01/25 04/01/25 History
metoprolol tartrate 100 mg tablet 150 mg PO DAILY Blood Pressure 04/01/25 04/01/25 History
Review of Systems
-
Unable to obtain full review of systems at this time due to: Patient Intubation
Physical Exam
Vital Signs
Temp Pulse Resp BP Pulse Ox
97.8 F 91 23 88/71 99
04/03/25 08:03 04/03/25 09:30 04/03/25 09:30 04/03/25 06:00 04/03/25 09:30
Lab Results
04/03/25 03:51
Troponin I 2.600 ng/ml H* D 04/03/25 06:11
Zmw-I-Gzmwlyvthqu Pept 96300 pg/ml 04/02/25 18:14
Physical Exam
General: Other (intubated and sedated)
HEENT: Normocephalic
Respiratory: Clear
Cardiac: S1/S2 and Regular Rhythm
GI: Soft
Musculoskeletal: No Edema
Skin: Warm and Dry
Neuro: Sedated
Impression / Plan
-
A/P: 84-year-old female with history of dementia, hypertension and hyperlipidemia who had presented to emergency room on 04/01 after a fall. She subsequently had cardiac arrest post-op.
Cardiac arrest unclear cause
- continue supportive care
- intubated and sedated
- Requiring vasopressor support --> wean as necessary
- EKG nonspecific
- awaiting echo
Hypoxic respiratory failure requiring ventilator support
- wean as able
Lactic acidosis
- improving
Hip fracture s/p ORIF
HTN
- currently requiring vasopressors
HLD
Dementia
Data Reviewed
-
EKG: Tracing Personally Visualized and interpreted (sr)
Labs: Labs Reviewed by me
Critical Care Time (in minutes): 33
--- NOTE | 2025-04-03 12:24 | PTCARENOTE ---
No major changes in assessment. Patient lightly sedated. RASS -1 to 0. Nodding head and following commands appropriately. NSR on tele, rate in the 60's. Vent settings unchanged. Pulse ox 99% on 40% fio2. Lung sounds diminished throughout. Hypo BS.
OGT remains to LIS. Dark brown output. FMS in place for liquid stools. Ny output 6 cc's since start of shift. Right hip dressing remains intact. CPOT 0. Attempted to wean off Vaso at 1100. BP unable to tolerate. Vaso restarted. Titrating Levophed
for MAP>65. Repeat PTT, BMP and Trop sent.
[2025-04-03 12:47] LABS: APTT 88.2 Sec (23.4-35.0)
[2025-04-03 13:37] LABS: Troponin I < 0.012 ng/ml
[2025-04-03 13:49] LABS: Blood Urea Nitrogen 29 mg/dl (7-17); Calcium 8.3 mg/dl (8.4-10.2); Carbon Dioxide 14 mmol/L (22-30); Chloride 102 mmol/L (98-107); Estimated Creatinine Clearance 15 ml/min; Glucose 163 mg/dl (70-99); Potassium 4.3 mmol/L (3.5-5.1); Sodium 135 mmol/L (135-145); eGFR 20.19
--- NOTE | 2025-04-03 13:52 | PHA.VAN.FU ---
Vancomycin Assessment / Plan
- Assessment
Renal Function: SCR Increasing
WBC's are: Trending Down
Concomitant Antimicrobials: piperacillin/tazobactam
- Assessment - Therapeutic Drug Monitoring
Random Level: 20.4 - drawn ~6H after 1500mg loading dose
- Dosing Plan
Dosing by Level: Hold off on dosing today
- Monitoring Plan
Random Level: 04/04 06
- Follow Up
Pharmacy will continue to follow.
Vancomycin Follow UP
- -
Patient Age: 84
Patient Sex: Female
Vancomycin Day #: 2
Indication: Pulmonary/Respiratory
Requesting Provider: Pura Romo
Pertinent Antimicrobial Allergies:
no pertinent antibiotic allergies
Height / Weight:
Height 5 ft 1 in
Actual Weight 66.7 kg
- Vital Signs / Lab Results
Temp Pulse Resp BP Pulse Ox
97.8 F 63 22 81/53 97
04/03/25 11:22 04/03/25 13:00 04/03/25 13:00 04/03/25 12:00 04/03/25 12:30
Lab Results - Hematology
03/31/25 04/02/25 04/02/25
23:02 05:55 18:14
WBC 11.2 H 10.3 11.3 H
04/02/25 04/02/25 04/02/25
19:29 20:51 23:44
WBC 16.0 H Cancelled 17.3 H
04/03/25
03:51
WBC 18.9 H
Lab Results - Chemistry
03/31/25 04/02/25 04/02/25
23:02 05:55 18:13
BUN 27 H 24 H 15
Creatinine 1.2 H 1.2 H 0.8
Estimated Creat Clear 25 38
Albumin 4.5
04/02/25 04/02/25 04/02/25
19:29 19:29 19:29
BUN 23 H Cancelled
Creatinine 1.5 H Cancelled
Estimated Creat Clear 20
Albumin
04/02/25 04/03/25 04/03/25
19:29 03:51 12:22
BUN 24 H 29 H
Creatinine 1.8 H 2.3 H
Estimated Creat Clear Cancelled 19 15
Albumin 2.6 L D
04/02/25 04/02/25 04/03/25
19:35 23:44 03:51
Lactic Acid 9.1 H* 9.2 H* 9.6 H*
04/03/25 04/03/25 04/03/25
06:11 07:45 09:49
Lactic Acid 8.6 H* Cancelled 7.8 H*
Lab Results - Urine
04/03/25
00:27
Urine Nitrite (Reflex) Negative
Leukocyte Esterase Rfl 1+ A
Ur Squamous Epith Cells 11-15
Microbiology Results
04/03/25 03:51 Gram Stain - Preliminary
Sputum
04/03/25 00:26 Nasal Screen MRSA (PCR) - Final
Nose MRSA not detected - performed by PCR methodology.
04/03/25 00:26 Influenza Types A & B (ADÁN) - Final
Nasal Swab Negative for Influenza A & B, NAAT
Negative results must be combined with clinical observations
and patient history.
Nucleic Acid Amplification test (NAAT)performed on the
[employer] platform.
Therapeutic Drug Monitoring
Random Vancomycin 20.4 ug/ml 04/03/25 06:11
[2025-04-03] MEDS: ASPIRIN 300 MG RECTAL (14:27)
--- NOTE | 2025-04-03 15:23 | W.PN.HOSP.TC ---
Today's Communication/Plan
-
.
Assessment / Plan
Assessment / Plan
Physical Exam
-
General: intubated and sedated
HEENT: Moist Mucous Membranes, Anicteric and PERRLA. ET tube
Respiratory: no wheezes.
Cardiac: S1/S2;
GI: Soft, Nontender, Nondistended and Normal Bowel Sounds
Musculoskeletal: No joint swelling. �Negative Edema, Left Lower Extrem
Skin: Warm, Dry and no rash
Neuro: Intubated and sedated, followed simple commands sometimes when sedation is low.
Psych: Calm
# S/P cardiac arrest
possible NSTMI
currently on IB heparin gtt and aspirin
Echo is reviewed with cardiology
continue supportive care
Might need ischemic work up pending further stabilization.
Appreciate ICU and cardiology doctors help
# ALYSSIA/ Left renal atrophy (noted by CT)
monitor renal function
IVF
Pressure support
I/O
Consulted nephrology
# Acute ischemic hepatitis
post shock
c/w IVF
# Right hip fracture s/p ORIF on 04/01/2025
currently sedated,
eventual PT/ OT
# Lactic acidosis with leukocytosis
Meet sepsis/ septic shock criteria now, ? aspiration pneumonitis
f/w with chest x ray in AM
Empiric IV Abx
# Essential Hypertension
cardiogenic and hypovolemic shock
now holding BP medications
IV steroid for support
# Hypokalemia, replaced
# Mild acute blood loss anemia post fracture and surgery
Stable HGB
#Hyperlipidemia
Dementia
Holding meds while sedated.
Total time spent to see the patient, examine the patient, review data and lab result, discuss treatment plan with patient, nursing staff around 55 minutes
Anticipated Discharge: > 48 hours
Subjective/Interval History
-
Date of Service: April 03, 2025
No fevers
sometimes awake while intubated
Objective Data
-
Labs:
Laboratory Results
04/03/25 04/03/25 04/03/25
03:51 06:11 12:22
WBC 18.9 H
Hgb 10.2 L
Hct 31.0 L
Plt Count 262
APTT 54.7 H 88.2 H
HCO3 11.8 L*
Sodium 136 135
Potassium 4.9 4.3
Chloride 108 H 102
Carbon Dioxide 8 L* 14 L*
BUN 24 H 29 H
Creatinine 1.8 H 2.3 H
Glucose 198 H 163 H
Calcium 8.5 8.3 L
Total Bilirubin 1.0
AST 6930 H*
ALT 2204 H*
Alkaline Phosphatase 90
04/03/25
18:30
WBC
Hgb
Hct
Plt Count
APTT Pending
HCO3
Sodium
Potassium
Chloride
Carbon Dioxide
BUN
Creatinine
Glucose
Calcium
Total Bilirubin
AST
ALT
Alkaline Phosphatase
Vital Signs:
Vital Signs
Temp Pulse Resp BP Pulse Ox
97.8 F 60 20 81/53 99
04/03/25 11:22 04/03/25 14:30 04/03/25 14:30 04/03/25 12:00 04/03/25 13:30
I&O
04/02/25 04/03/25 04/04/25
06:59 06:59 06:59
Intake Total 650 / 650 4413.9 / 4571.8 1452.3 / 1452.3
Output Total 850 / 850 245 / 245
Balance -200 / -200 4168.9 / 4326.8 1436.3 / 1436.3
--- NOTE | 2025-04-03 16:01 | CM ---
Intubated. Original discharge POC was home with RN and PT/OT. Coded last PM. Will need updated PT recommendation when able.
--- NOTE | 2025-04-03 16:14 | PTCARENOTE ---
Systems reviewed. No major changes. Weaning pressors as tolerated.
[2025-04-03 18:45] LABS: APTT 125.7 Sec (23.4-35.0)
[2025-04-03 18:51] LABS: Lactic Acid 6.6 mmol/L (0.7-2.0)
[2025-04-03] MEDS: SUBLIMAZE 50 MCG IV (21:22)
[2025-04-03 23:16] LABS: B.E. -1.4 mmol/L; HCO3 19.7 mmol/L (21-28); O2 Saturation % 99.6 % (94-98); PCO2 22 mmHg (32-35); PO2 178 mmHg (83-108); Potassium 3.6 mMOL/L (3.5-5.1); Sodium 129 mMOL/L (136-145); pH 7.56 (7.35-7.45)
[2025-04-03 23:26] LABS: Lactic Acid 4.8 mmol/L (0.7-2.0)
[2025-04-03 23:35] LABS: Glucose - Point of Care 92 mg/dl (70-99)
--- NOTE | 2025-04-03 23:48 | PTCARENOTE ---
pt reassessed. arouses to verbal and tactile stimuli. follows commands, nods y/n. SB on monitor. ABG sent, RR decreased to 16, vent settings now AC 16/400/40%/5. FMS flushed, OGT remains to LIS, wen with only 5cc UOP so far this shift. BS at 1999
showed 16ml. neurovascular checks continue qshift. R hip aquacell with old drainage noted. levo gtt titrated per MAP goal. fent/prop/heparin gtts continue. bicarb gtt rate adjusted to 75ml/hr. CHG bath, wen care, oral care done. care ongoing.
[2025-04-04] VITALS (8 sets, daily range): BP systolic 63–110; BP diastolic 50–71; BMI 28.4
[2025-04-04] MEDS: SOLU-CORTEF 50 MG IV ×4 (00:17→18:01)
[2025-04-04] MEDS: CALCIUM CHLORIDE 10% SYRINGE 60 MG IV ×2 (00:18→05:08)
[2025-04-04] MEDS: ZOSYN 50 IV ×3 (01:11→18:02)
[2025-04-04 01:46] LABS: APTT 134.7 Sec (23.4-35.0)
[2025-04-04] MEDS: SUBLIMAZE 100 IV (01:53)
[2025-04-04] MEDS: HEPARIN 25000 UNITS/250 ML IV (03:49)
[2025-04-04] MEDS: DIPRIVAN 100 IV (03:50)
[2025-04-04 04:16] LABS: B.E. 2.5 mmol/L; HCO3 23.8 mmol/L (21-28); Ionized Calcium 0.98 mMOL/L (1.15-1.33); O2 Saturation % 99.3 % (94-98); PCO2 26 mmHg (32-35); PO2 100 mmHg (83-108); Potassium 3.6 mMOL/L (3.5-5.1); Sodium 129 mMOL/L (136-145); pH 7.57 (7.35-7.45)
--- NOTE | 2025-04-04 04:16 | PTCARENOTE ---
AM labs sent, no changes in assessment noted. prop/fent/heparin/levo continue. + DP pulses with Doppler. vent settings AC 16/400/5/30%. ETT adjusted. calcium repleted. care ongoing.
[2025-04-04 04:19] LABS: Hematocrit 25.5 % (37.0-47.0); Mean Corp Hgb Conc. 35.3 g/dL (33.0-37.0); Mean Corpuscular Hgb 29.6 pg (27.0-31.0); Mean Corpuscular Volume 83.9 fL (81.0-99.0); Mean Platelet Volume 10.1 fL (7.4-10.4); Platelet Count 220 10^3/uL (130-400); Red Blood Cell Count 3.04 10^6/uL (4.20-5.40); Red Cell Dist. Width 12.3 % (11.5-14.5); White Blood Cell Count 14.8 10^3/uL (4.8-10.8)
[2025-04-04 04:39] LABS: Lactic Acid 3.3 mmol/L (0.7-2.0)
[2025-04-04 04:40] LABS: Blood Urea Nitrogen 40 mg/dl (7-17); Calcium 7.9 mg/dl (8.4-10.2); Carbon Dioxide 22 mmol/L (22-30); Chloride 95 mmol/L (98-107); Estimated Creatinine Clearance 13 ml/min; Glucose 122 mg/dl (70-99); Potassium 3.4 mmol/L (3.5-5.1); Sodium 131 mmol/L (135-145); eGFR 15.95
[2025-04-04] MEDS: KCL 50 IV (05:08)
[2025-04-04 05:33] LABS: Glucose - Point of Care 99 mg/dl (70-99)
--- NOTE | 2025-04-04 07:46 | W.PN.UPDATE ---
Update Note
Progress Note Update
Appreciate all involved in this patient's care. She had right hip hemiarthroplasty on 04/01/25. She remains intubated and sedated. Unfortunately she coded last evening. A-line in place. Afeb. Hgb 9. Right hip dressing in place with mild strikethrough.
Expected postop changes. Calf is supple. Pulses palpable distally. On heparin drip and aspirin. Will follow along peripherally for now- again, appreciate her ongoing care.
--- NOTE | 2025-04-04 07:48 | W.PN.CD ---
Today's Communication / Plan
-
Cont weaning ventilator and vasopressor support
She is on aspirin
Await further workup pending recovery
Impression / Plan
-
A/P: 84-year-old female with history of dementia, hypertension and hyperlipidemia who had presented to emergency room on 04/01 after a fall. She subsequently had cardiac arrest post-op.
Cardiac arrest unclear cause possible NSTEMI?
- LAD wall motion abnormality on echo; although would imagine a larger degree of troponin elevation if new LAD infarct
- continue supportive care
- likely extubated today, and likely off vasopressor support
- EKG nonspecific
- echo below; ischemic eval possibly at some point if agreeable
Hypoxic respiratory failure requiring ventilator support
- wean as able
Lactic acidosis
- resolved
ALYSSIA
- limited urine output
Hip fracture s/p ORIF
HTN
- currently requiring vasopressors
HLD
Dementia
Subjective: Intubated and sedated
Echo: CONCLUSIONS
Dilated and hypokinetic right ventricle.
The inferoseptum and anteroseptum and possibly the anterior wall ( not well
seen since apicals were off axis) are hypokinetic.
EF 50-55%.
Stage II diastolic dysfunction suggestive of abnormal relaxation and increased
filling pressures.
Moderately dilated right atrium.
Mild mitral regurgitation.
Mild to moderate aortic regurgitation.
Moderate to severe tricuspid regurgitation.
Estimated PASP 64 mmHg and RA 3 mmHg.
No prior study available for comparison.
Physical Exam
Vital Signs/Labs
Vital Signs
Temp Pulse Resp BP Pulse Ox
97.4 F 54 16 110/63 98
04/04/25 03:04 04/04/25 07:00 04/04/25 07:00 04/04/25 04:53 04/04/25 07:28
04/03/25 04/04/25 04/05/25
06:59 06:59 06:59
Actual Weight 147 lb 0.773 oz 150 lb 2.157 oz
04/04/25 03:57
04/04/25 03:57
PT 22.7 Sec (11.4-14.6) H 04/02/25 19:29
INR 1.98 04/02/25 19:29
APTT 134.7 Sec (23.4-35.0) H 04/04/25 01:14
Magnesium 2.1 mg/dl (1.6-2.3) 04/03/25 03:51
Triglycerides 135 mg/dl (10-149) 04/02/25 19:29
04/02/25
18:14
Wzj-K-Hbzpswvtgsq Pept 47717
LAB Results
04/02/25 04/02/25 04/03/25
18:14 23:44 06:11
Troponin I 0.724 H* 1.440 H* D 2.600 H* D
04/03/25
12:22
Troponin I < 0.012 D
Physical Exam
Constitutional: Other (intubated and sedated)
EENT: Anicteric
Cardiovascular: Rhythm & rate is regular
Respiratory: Respiratory effort normal and Lungs clear to auscul.
GI: Soft
Neuro/Psych: Other (intubated and sedated)
Data Reviewed
-
Date of Service: April 04, 2025
EKG: Tracing Personally Visualized and interpreted (sr)
Echo: Tracing Personally Visualized and interpreted and Report Reviewed by me
Labs: Labs Reviewed by me
[2025-04-04] MEDS: PROTONIX IV 40 MG IV (07:54)
[2025-04-04] MEDS: ASPIRIN RECTAL ×2 (07:54→08:04)
--- NOTE | 2025-04-04 08:22 | W.PN.INTV ---
Today's Communication / Plan
Recommendations
Plan for extubation today
Defer ischemic evaluation to cardiology (troponin peaked at 2.66 and was negative as of 04/03)
Would not recommend left heart catheterization at this time given worsening ALYSSIA
Renally adjust all medications/antibiotics
Replete K>4, Mg>2
Trend lactate level until <2 mmol/L, and trend serum creatinine while renally adjusting all medications/antibiotics
Continue ICU level care for this critically ill patient
Assessment
-
#1. Cardiac arrest with Shock
- Reportedly code 9 was called in the evening of 04/02 on the floor for unresponsiveness. Patient noted to have agonal breathing, undetectable blood pressure, undetectable pulse, s/p CPR x 1 cycle for about 2-minute following which ROSC was achieved.
Patient received 1 dose of epinephrine. Emergently intubated by anesthesia service.
- Differential diagnosis broad including acute pulmonary embolism, acute CO, catastrophic stroke/bleed, bowel ischemia etc.
- Stat chest x-ray without any pneumothorax or acute changes, stat EKG was checked which did not show any ST elevation
- In the ICU, patient again developed hypotension however did not lose pulse and was given stat epinephrine pushes, bicarb pushes as well as IV calcium following which her blood pressure improved. Patient received 2 L fluid bolus followed by bicarb
infusion. Right IJ central line and left radial arterial line were placed by Dr. Cabrera
- Continue with levophed and maintain MAP >65�70, aiming for higher BP goals to adequately perfused tissue
- Continue stress dose steroids of hydrocortisone 50 mg IV q6hr x 3 days then wean down as tolerated
- Off bicarb drip since yesterday
- Continue broad-spectrum antibiotics with Vanco/Zosyn
- Hold home antihypertensives
- Official echo checked on 04/03/2025 showing a dilated and hypokinetic RV with stage II diastolic dysfunction, and severely increased PA pressures with a PASP of 64 mmHg. Also inferoseptum and anteroseptum are hypokinetic. Previous bedside PocUS
performed on the evening of 04/[address] Cabrera showed a dilated RV and had concern for an acute PE. Heparin drip started and CTA chest, abdomen, pelvis obtained. No acute PE seen on imaging. Small amount of ascites with suspected enteritis/ileus,
and an ill-defined heterogeneous hypoattenuation within the right hepatic lobe dome.
- Given that the CTA chest was negative for an acute PE, I am now more concerned that she had acute coronary syndrome as a cause of her arrhythmia; other DDx is loss of pre-load from severe PH with RV dysfunction that triggered a fatal arrhythmia
--> ideally would want cardiology to perform left heart catheterization. Defer ischemic workup to cardiology. Continue with heparin gtt and continue aspirin
- After her cardiac arrest, she was reaching for the ET tube - hence there was no need for therapeutic hypothermia or targeted temperature management.
#2. Acute hypoxic + hypercapnic respiratory failure now on mechanical ventilation
- Continue with mechanical ventilation with daily SAT/SBT if clinically appropriate - plan to extubate today
- Maintain plateau pressure <30 and titrate FiO2 + PEEP to keep SpO2 >90-94%
- Continue aspiration precautions; keep HOB >30-45�
- prn nebulized bronchodilators - not currently bronchospastic
- Oropharyngeal + deep ETT suctioning with subglottic as needed
- Daily CXR + blood gas
- Daily vent adjustments as needed based on blood gas and SaO2
- Low level of sedation with goal RASS as 0 to -2
#3. Pneumonia, likely aspiration due to cardiac arrest
- CXR after her cardiac arrest shows increased patchy opacification in the right base as well as retrocardiac opacification. Suspect that this is due to aspiration pneumonia
- Continue with antibiotics as above
- Monitor ETT secretions
- Trend WBC and monitor fever curve
- Continue with Zosyn (started 04/03/2025); IV vancomycin stopped as MRSA swab negative
#4. Lactic acidosis
- S/p 2 L IV fluid bolus followed by continued IV hydration
- Blood cultures x2 checked on 04/02, urine culture and sputum Cx both checked on 04/03 - follow up results. Continue broad-spectrum antibiotics with zosyn
- No bowel ischemia on Ct A/P form 04/02
- Continue pressors as needed to keep MAP above 65. Continue stress dose steroids
- Follow serial lactate until <2mmol/L
#5. Right-sided femoral neck fracture s/p hemiarthroplasty - OR date: 04/01/2025
- Pain control
- Postoperative management as per orthopedic surgery
Other medical diagnoses:
- HTN
- HLD
- Dementia
On 04/03, Dr. Mario updated the patient's [id number]-ikl, Porsche, patient's grand-daughter, Kaylee, and the patient's grandson, Jaron.
I discussed the case today with the patient's grand-daughter, Sanna, daughter, Madonna, and son, Jaron -all questions were answered.
Critical care statement: A total of 41 minutes of critical care time was provided for this patient today. This includes management of unstable vital signs, evaluation of the patient at bedside, reviewing the patient's pertinent medical records
including radiographs, microbiology, laboratory evaluations, and discussion with primary team, consultants, pharmacy, nutrition, physical therapy, case management, charge nurse, critical care nursing, and respiratory therapy.
Data:
CXR 03/2025: Unremarkable
KUB 03/2025: No acute change
Hip X ray 03/2025: Acute displaced right hip fracture
Moderate right hip osteoarthritis.
Mild bony mineralization.
Moderate fecal material in the colon
Subjective Dataa
Subjective Data
Date of Service:
Date of Service: April 04, 2025
Chief Complaint: Executive Assistant To President Follow Up
Subjective:
Patient seen and evaluated this morning. Weaning off sedation. Heart rate 75, BP 99/54, and BP via A line 110/57 with EtCO2 25. Currently on Levophed at 3 mcg/min. Currently intubated on AC/CMV 400/16/5/30%. Changed to a PST today on 02/27.
Patient is easily arousable and following commands.
Review of Systems
General: Unobtainable - Sedation (And intubated)
Objective Data
Data Reviewed
Vital Signs / I&O / Oxygen:
Vital Signs
Temp Pulse Resp BP Pulse Ox
97.8 F 69 26 63/50 97
04/04/25 08:05 04/04/25 10:00 04/04/25 10:00 04/04/25 08:08 04/04/25 10:00
Intake and Output
04/03/25 04/04/25 04/05/25
06:59 06:59 06:59
Intake Total 4413.9 / 4571.8 3295.8 / 3324.7 107.0 / 107.0
Output Total 245 / 245 921 / 921 6 / 6
Balance 4168.9 / 4326.8 2374.8 / 2403.7 101.0 / 101.0
SaO2 [A/C] 97
SaO2 97
Nasal Cannula flow liters per 2
minute
Physical Exam
General: Respiratory Distress (negative), Comfortable, Chills (negative) and Sweats (negative)
HEENT: Normocephalic, Anicteric and Other (ETT in place)
Cardiovascular: S1-S2 and Peripheral Edema (negative)
Respiratory: Wheeze (negative), Crackles (negative), Rhonchi (negative), Non-Labored Respirations, Stridor (negative) and ET Tube (Mechanical breath sounds heard bilaterally)
GI: Soft, Non Distended and Normal Bowel Sounds
Neurology: Tremors (negative) and Other (Following all commands)
Skin: Warm, Dry, Cyanosis (negative) and Jaundice (negative)
Labs/Micro/Reports
Lab Data
04/04/25 03:57
04/04/25 03:57
Laboratory Results
04/03/25 04/03/25 04/03/25
12:22 18:23 23:06
APTT 88.2 H 125.7 H
pH 7.56 H
pCO2 22 L
pO2 178 H
HCO3 19.7 L
O2 Delivery Level
04/04/25 04/04/25 04/04/25
01:14 03:57 09:14
APTT 134.7 H 86.8 H
pH 7.57 H
pCO2 26 L
pO2 100
HCO3 23.8
O2 Delivery Level
Microbiology
04/03/25 00:27 Urine Urine Culture - Final
NO GROWTH
04/03/25 03:51 Sputum Respiratory Culture - Preliminary
NO GROWTH
04/03/25 03:51 Sputum Gram Stain - Preliminary
04/02/25 23:55 Blood/Venous Blood Culture - Preliminary
No Growth in 24 hours- Final report to follow
04/02/25 23:44 Blood/Venous Blood Culture - Preliminary
No Growth in 24 hours- Final report to follow
04/03/25 00:26 Nose Nasal Screen MRSA (PCR) - Final
MRSA not detected - performed by PCR methodology.
04/03/25 00:26 Nasal Swab Influenza Types A & B (ADÁN) - Final
Negative for Influenza A & B, NAAT
Negative results must be combined with clinical observations
and patient history.
Nucleic Acid Amplification test (NAAT)performed on the
[employer] platform.
--- NOTE | 2025-04-04 09:34 | W.PN.NEPH.PH ---
Today's Communication / Plan
-
Maintain pressor support to keep MAP at 65 or greater
Replete potassium
Discontinue sodium bicarb
Rate adjustment on ventilator for respiratory alkalosis per ICU attending
Daughter who is power of prosecuting attorney states that her mother would not want to pursue dialysis
Assessment/Plan
-
Impression:
Admission for hip fracture
Cardiac arrest status post surgery
ALYSSIA (4 plus blood and 3 plus albumin)
Gapped metabolic acidosis (lactic acid ~ 8) acidemia
Hypertension
Dementia
Dyslipidemia
Left renal atrophy (noted by CT)
VDRF
Plan:
ALYSSIA:
-Worsening with creatinine up to 2.8 and drop off of urine overnight to essential anuria
-likely pre renally mediated insetting of post op hypotension in addition to CT with IV contrast for angiogram performed on 04/02/2025
- Withhold further oral bicarbonate therapy as patient has profound alkalemia from respiratory alkalosis
- Maintain MAP of 65 or greater with pressors
- maintain wen
-Zosyn dosage needs to be adjusted for GFR below 30
- No acute dialysis indication yet but given hemodynamic lability would likely require CRRT if aggressive measures to be pursued
- Patient remains critically ill with hemodynamic instability requiring pressor support VDRF as well as profound metabolic acidosis with subsequent acidemia
-I did speak with daughter who is power of prosecuting attorney that stated that her mother would not want to pursue dialysis
-35 minutes critical care time spent with
-
-
Date of Service: April 04, 2025
CC / HPI / ROS
-
Chief Complaint:
Acute kidney and
History of Present Illness:
ALYSSIA worsening with creatinine up to 2.8
Hemodynamically labile on pressor support
Respiratory alkalemia noted
Remains intubated
Review of Systems:
anuric
Noted hypothyroid
Remains intubated on 30% FiO2
Labs
-
Labs:
WBC 14.8 10^3/uL (4.8-10.8) H 04/04/25 03:57
RBC 3.04 10^6/uL (4.20-5.40) L 04/04/25 03:57
Hgb 9.0 g/dL (12.0-16.0) L 04/04/25 03:57
Hct 25.5 % (37.0-47.0) L 04/04/25 03:57
Plt Count 220 10^3/uL (130-400) 04/04/25 03:57
Sodium 131 mmol/L (135-145) L 04/04/25 03:57
Potassium 3.4 mmol/L (3.5-5.1) L 04/04/25 03:57
Chloride 95 mmol/L (98-107) L 04/04/25 03:57
Carbon Dioxide 22 mmol/L (22-30) 04/04/25 03:57
BUN 40 mg/dl (7-17) H 04/04/25 03:57
Creatinine 2.8 mg/dL (0.6-1.0) H 04/04/25 03:57
eGFR 15.95 04/04/25 03:57
Glucose 122 mg/dl (70-99) H 04/04/25 03:57
Calcium 7.9 mg/dl (8.4-10.2) L 04/04/25 03:57
Phosphorus 6.9 mg/dl (2.5-4.5) H 04/03/25 03:51
Zom-Z-Dfvmkqdlmgj Pept 00745 pg/ml 04/02/25 18:14
Albumin 2.6 g/dl (3.5-5.0) L D 04/03/25 03:51
Physical Exam
-
Vital Signs:
Vital Signs
Temp Pulse Resp BP Pulse Ox
97.8 F 61 17 63/50 98
04/04/25 08:05 04/04/25 08:08 04/04/25 08:08 04/04/25 08:08 04/04/25 07:28
Cardiovascular:: Regular rate and rhythm
Respiratory:: Bilateral: Coarse
Lung Excursion:: Normal
Abdomen:: Nontender and Soft
Bowel Sounds:: Normal
Extremity Edema:: +1: Bilateral: (trace central edema)
Wen Catheter: Yes
[2025-04-04 09:59] LABS: APTT 86.8 Sec (23.4-35.0)
[2025-04-04 10:18] LABS: Lactic Acid 2.8 mmol/L (0.7-2.0)
[2025-04-04] MEDS: LEVOPHED 250 IV (11:13)
--- NOTE | 2025-04-04 11:32 | PHA.VAN.FU ---
Vancomycin Assessment / Plan
- Assessment
Renal Function: SCR Increasing
WBC's are: Trending Down
In the past 24 hrs, patient has been: Afebrile
Concomitant Antimicrobials: piperacillin/tazobactam
- Assessment - Therapeutic Drug Monitoring
Random Level: 19 - drawn ~21.8H after previous level of 20.4
Calculated ke: 0.0033
Calculated half life (H): 212
- Dosing Plan
Dosing by Level: Hold off on dosing today
- Monitoring Plan
Random Level: 04/05 06
- Follow Up
Pharmacy will continue to follow.
Vancomycin Follow UP
- -
Patient Age: 84
Patient Sex: Female
Vancomycin Day #: 3
Indication: Pulmonary/Respiratory
Requesting Provider: Pura Romo
Pertinent Antimicrobial Allergies:
no pertinent antibiotic allergies
Height / Weight:
Height 5 ft 1 in
Actual Weight 68.1 kg
- Vital Signs / Lab Results
Temp Pulse Resp BP Pulse Ox
97.8 F 71 24 99/54 96
04/04/25 08:05 04/04/25 11:00 04/04/25 11:00 04/04/25 10:10 04/04/25 11:00
Lab Results - Hematology
04/02/25 04/02/25 04/02/25
05:55 18:14 19:29
WBC 10.3 11.3 H 16.0 H
04/02/25 04/02/25 04/03/25
20:51 23:44 03:51
WBC Cancelled 17.3 H 18.9 H
04/04/25
03:57
WBC 14.8 H
Lab Results - Chemistry
04/02/25 04/02/25 04/02/25
05:55 18:13 19:29
BUN 24 H 15 23 H
Creatinine 1.2 H 0.8
Estimated Creat Clear 25 38
Albumin
04/02/25 04/02/25 04/02/25
19:29 19:29 19:29
BUN Cancelled
Creatinine 1.5 H Cancelled
Estimated Creat Clear 20 Cancelled
Albumin
04/03/25 04/03/25 04/04/25
03:51 12:22 03:57
BUN 24 H 29 H 40 H
Creatinine 1.8 H 2.3 H 2.8 H
Estimated Creat Clear 19 15 13
Albumin 2.6 L D
04/02/25 04/02/25 04/03/25
19:35 23:44 03:51
Lactic Acid 9.1 H* 9.2 H* 9.6 H*
04/03/25 04/03/25 04/03/25
06:11 07:45 09:49
Lactic Acid 8.6 H* Cancelled 7.8 H*
04/03/25 04/03/25 04/03/25
14:01 18:23 23:06
Lactic Acid 7.0 H* 6.6 H* 4.8 H*
04/04/25 04/04/25
03:57 09:14
Lactic Acid 3.3 H 2.8 H
Microbiology Results
04/03/25 00:27 Urine Culture - Final
Urine NO GROWTH
04/03/25 03:51 Respiratory Culture - Preliminary
Sputum NO GROWTH
Gram Stain - Preliminary
04/02/25 23:55 Blood Culture - Preliminary
Blood/Venous No Growth in 24 hours- Final report to follow
04/02/25 23:44 Blood Culture - Preliminary
Blood/Venous No Growth in 24 hours- Final report to follow
04/03/25 00:26 Nasal Screen MRSA (PCR) - Final
Nose MRSA not detected - performed by PCR methodology.
04/03/25 00:26 Influenza Types A & B (ADÁN) - Final
Nasal Swab Negative for Influenza A & B, NAAT
Negative results must be combined with clinical observations
and patient history.
Nucleic Acid Amplification test (NAAT)performed on the
[employer] platform.
Therapeutic Drug Monitoring
Random Vancomycin 19.0 ug/ml 04/04/25 03:57
[2025-04-04 11:47] LABS: Glucose - Point of Care 117 mg/dl (70-99)
[2025-04-04] MEDS: LOW STRENGTH ASPIRIN 81 MG TUBE (12:51)
[2025-04-04 13:02] LABS: B.E. 0 mmol/L; HCO3 23.3 mmol/L (21-28); O2 Saturation % 98.4 % (94-98); PCO2 32 mmHg (32-35); PO2 93 mmHg (83-108); pH 7.47 (7.35-7.45)
--- NOTE | 2025-04-04 14:00 | W.PN.HOSP.TC ---
Today's Communication/Plan
-
.
Assessment / Plan
Assessment / Plan
Physical Exam
-
General: intubated and sedated
HEENT: Moist Mucous Membranes, Anicteric and PERRLA. ET tube
Respiratory: no wheezes.
Cardiac: S1/S2;
GI: Soft, Nontender, Nondistended and Normal Bowel Sounds
Musculoskeletal: No joint swelling. �Negative Edema, Left Lower Extrem
Skin: Warm, Dry and no rash
Neuro: Intubated and sedated, followed simple commands sometimes when sedation is low.
Psych: Calm
# S/P cardiac arrest
possible NSTMI
currently on IB heparin gtt and aspirin
Echo is reviewed with cardiology
continue supportive care
Might need ischemic work up pending further stabilization.
Appreciate ICU and cardiology doctors help
# ALYSSIA/ Left renal atrophy (noted by CT)
monitor renal function
IVF
Pressure support
I/O
Consulted nephrology
# Acute ischemic hepatitis
post shock
c/w IVF
# Right hip fracture s/p ORIF on 04/01/2025
currently sedated,
eventual PT/ OT
# Lactic acidosis with leukocytosis
Meet sepsis/ septic shock criteria now, ? aspiration pneumonitis
f/w with chest x ray in AM
Empiric IV Abx
# Essential Hypertension
cardiogenic and hypovolemic shock
now holding BP medications
IV steroid for support
# Hypokalemia, replaced
# Mild acute blood loss anemia post fracture and surgery
Stable HGB
# hyponatremia
# hypokalemia
#Hyperlipidemia
Dementia
Holding meds while sedated.
Total time spent to see the patient, examine the patient, review data and lab result, discuss treatment plan with patient, nursing staff around 55 minutes
Anticipated Discharge: > 48 hours
Subjective/Interval History
-
Date of Service: April 04, 2025
Seen earlier
Plan for extubation
Objective Data
-
Labs:
Laboratory Results
04/04/25 04/04/25 04/04/25
03:57 09:14 12:56
WBC 14.8 H
Hgb 9.0 L
Hct 25.5 L
Plt Count 220
APTT 86.8 H
HCO3 23.8 23.3
Sodium 131 L
Potassium 3.4 L
Chloride 95 L
Carbon Dioxide 22
BUN 40 H
Creatinine 2.8 H
Glucose 122 H
Calcium 7.9 L
04/04/25
15:00
WBC
Hgb
Hct
Plt Count
APTT Pending
HCO3
Sodium
Potassium
Chloride
Carbon Dioxide
BUN
Creatinine
Glucose
Calcium
Vital Signs:
Vital Signs
Temp Pulse Resp BP Pulse Ox
98.5 F 71 24 99/54 96
04/04/25 12:26 04/04/25 11:00 04/04/25 11:00 04/04/25 10:10 04/04/25 11:00
I&O
04/03/25 04/04/25 04/05/25
06:59 06:59 06:59
Intake Total 4413.9 / 4571.8 3295.8 / 3324.7 153.3 / 153.3
Output Total 245 / 245 921 / 921
Balance 4168.9 / 4326.8 2374.8 / 2403.7 147.3 / 147.3
--- NOTE | 2025-04-04 14:20 | PTCARENOTE ---
Extubated. SpO2 95% on 4L NC. Remains on Levophed and Heparin gtt. BP via left radial a-line. FMS intact. Very poor urine out put via wen. Right hip aquacell dressing intact. All other assessments per charting. Family at bedside.
--- NOTE | 2025-04-04 15:19 | CM ---
Intubated, sedated. Discharge POC: TBD based on medical progression.
[2025-04-04 15:26] LABS: APTT 85.5 Sec (23.4-35.0)
[2025-04-04 15:28] LABS: Lactic Acid 2.6 mmol/L (0.7-2.0)
[2025-04-04] MEDS: ANESTHETIC LOZENGE 1 LOZENGE PO (16:45)
[2025-04-04 17:31] LABS: Glucose - Point of Care 85 mg/dl (70-99)
[2025-04-04] MEDS: PHENERGAN WITH CODEINE SYRUP 10 ML PO (18:01)
--- NOTE | 2025-04-04 18:13 | PTCARENOTE ---
Frequent cough since extubation. New meds ordered. Oriented x2. Per family increased forgetfulness at HS. Bed alarm on. All other assessments unchanged.
[2025-04-04] MEDS: DILAUDID 0.25 MG IV (21:18)
[2025-04-04 21:22] LABS: Glucose - Point of Care 83 mg/dl (70-99)
[2025-04-05] VITALS (9 sets, daily range): BP systolic 85–148; BP diastolic 54–77; BMI 28.6
--- NOTE | 2025-04-05 00:30 | PTCARENOTE ---
pt reassessed. PRN pain meds given for CP related to CPR/coughing fits. CHG bath, wen care, oral care done. levo/heparin gtts continue. pt remains oliguric. on 2L NC, O2 sat 99%, denies SOB. call juarez in reach.
[2025-04-05] MEDS: SOLU-CORTEF 50 MG IV ×5 (00:59→23:10)
[2025-04-05] MEDS: ZOSYN 50 IV ×3 (00:59→17:31)
[2025-04-05 03:43] LABS: APTT 90.5 Sec (23.4-35.0)
[2025-04-05 03:50] LABS: Hematocrit 22.1 % (37.0-47.0); Hemoglobin 7.7 g/dL (12.0-16.0); Mean Corp Hgb Conc. 34.8 g/dL (33.0-37.0); Mean Corpuscular Hgb 29.7 pg (27.0-31.0); Mean Corpuscular Volume 85.3 fL (81.0-99.0); Mean Platelet Volume 10.2 fL (7.4-10.4); Platelet Count 165 10^3/uL (130-400); Red Blood Cell Count 2.59 10^6/uL (4.20-5.40); Red Cell Dist. Width 12.2 % (11.5-14.5)
[2025-04-05 04:01] LABS: Lactic Acid 1.4 mmol/L (0.7-2.0)
[2025-04-05 04:03] LABS: ALT (SGPT) 527 U/L (0-35); Albumin 2.6 g/dl (3.5-5.0); Alkaline Phosphatase 127 U/L (38-126); Blood Urea Nitrogen 64 mg/dl (7-17); Calcium 7.2 mg/dl (8.4-10.2); Carbon Dioxide 26 mmol/L (22-30); Chloride 96 mmol/L (98-107); Estimated Creatinine Clearance 9 ml/min; Glucose 108 mg/dl (70-99); HDL Cholesterol 27 mg/dl; LDL Cholesterol, Calculated 33 mg/dl; Phosphorus 6.9 mg/dl (2.5-4.5); Potassium 4.1 mmol/L (3.5-5.1); Sodium 132 mmol/L (135-145); Total Bilirubin 1.1 mg/dl (0.2-1.3); Total Cholesterol 91 mg/dl (50-199); Total Protein 4.7 g/dl (6.3-8.2); Triglyceride 159 mg/dl (10-149); Very Low Density Lipoprotein 31 mg/dl (0-30); eGFR 10.72
--- NOTE | 2025-04-05 04:30 | PTCARENOTE ---
AM labs sent. levo gtt continues, maintaining MAP goal. on 2L NC. pt denies pain/SOB at this time. UOP remains minimal, Cr 3.9 this morning. call juarez in reach.
[2025-04-05 05:05] LABS: AST (SGOT) 3781 U/L (14-36)
[2025-04-05 05:15] LABS: Direct Bilirubin 0.9 mg/dl (0.0-0.4)
--- NOTE | 2025-04-05 07:16 | W.PN.ORTHO ---
Today's Communication / Plan
-
PT/OT when medically stable
Heparin drip/aspirin for DVT prophylaxis and mechanical devices
Weightbearing as tolerated with walker
Hip precautions
Skin clips removed 2 weeks postop
Follow-up orthopedics 1 month postop
Appreciate medical team's efforts
Assessment
.
Distal Motor Intact: Yes
Dressing:
Clean, dry and intact.
Plan
.
Surgery / Date: 04/01/25 Right hip hemiarthroplasty - Dr. Gonzalez
DVT Prophylaxis: Heparin
Activity:
Out of bed.
PT/OT
Discharge Plan: SNF
Subjective
.
.:
Patient extubated yesterday and resting comfortably this morning. She does not endorse any significant pain, numbness, tingling or weakness into the lower extremities..
Vital Signs and Labs
.
Vital Signs and Labs:
Lab Results
04/05/25 03:21
04/05/25 03:21
Temp Pulse Resp BP Pulse Ox
98.1 F 71 14 108/54 99
04/05/25 03:37 04/05/25 06:31 04/05/25 06:31 04/05/25 04:00 04/05/25 06:31
PT 22.7 Sec (11.4-14.6) H 04/02/25 19:29
INR 1.98 04/02/25 19:29
Physical Exam
-
Right hip dressing removed. Incision is clean, dry and intact. It was cleaned with alcohol and dried. New Aquacel dressing placed. Minimal edema about the hip and thigh. Passive motion nonpainful. No calf discomfort. Distal neurovascular was
intact.
--- NOTE | 2025-04-05 07:25 | W.PN.HOSP.TC ---
Today's Communication/Plan
-
Blood transfusion, one unit for now, might need another later. Slow infusion. Monitor for volume overload, hold IVF while infusion blood
Repeat EKG today
To d/w Cardiology if repeat echo is needed as noted in detailed note
Hope we can wean off Levophed
Still concerning ALYSSIA/ no improvement yet
Might be able to downgrade when off pressure support
Assessment / Plan
Assessment / Plan
Physical Exam
-
General: not in distress, comfortable
HEENT: Moist Mucous Membranes, Anicteric and PERRLA.
Respiratory: no wheezes. Good air/ did not hear rales
Cardiac: S1/S2;
GI: Soft, Nontender, Nondistended and Normal Bowel Sounds
Musculoskeletal: No joint swelling. �Negative Edema, Left Lower Extrem. Clean surgical site right lateral thigh
Skin: Warm, Dry and no rash
Neuro:AAOX to self and surroundings, followed commands appropriately, moved extremities to commands.
Psych: Calm
# S/P cardiac arrest
possible NSTMI with hypovolemia
VDRF, extubated 04/04 to 2 liters now. Good lung exam this morning
currently on IV heparin gtt and aspirin
Echo is reviewed, septal wall defect in motion, we can also repeat echo to better look at the montes since the first echo was done with high doses of inotropic agents to keep cardiac output.
continue supportive care with IVF
Might need ischemic work up pending further stabilization/ kidney status.
Repeat EKG
Appreciate ICU and cardiology doctors help
# ALYSSIA/ Left renal atrophy (noted by CT)
Creatinine continues to trend up, likely ATN from shock, but element of contrast induced AIN still to consider. Low urine out put despite volume resuscitation
Monitor renal function, renally adjust medications. Ny in to monitor I/O closely
on slow IVF, treat anemia
Pressure support to keep MAP >65
Appreciate nephrology help
# Acute ischemic hepatitis
post shock
LFT coming down
Patient denies nausea, expect slow recovery
c/w IVF
# Right hip fracture s/p ORIF on 04/01/2025
She denies pain
d/w ortho service, PT as tolerated.
# Lactic acidosis with leukocytosis
Meet sepsis/ septic shock criteria now, possible aspiration pneumonitis
Empiric IV Abx
# Essential Hypertension
cardiogenic and hypovolemic shock
now holding BP medications
IV steroid for shock , can wean down
# Hypokalemia, replaced
# Mild acute blood loss anemia post fracture and surgery
Will order one unit of RBCs. Might need two total, monitor for volume overload, hold IVF while infusion blood
# hyponatremia
#Hyperlipidemia
No changes intended. Holding statin with liver injury
# Dementia
Held meds while sedated. Now can resume slowly as tolerated. EKG today
Total time spent to see the patient, examine the patient, review data and lab result, discuss treatment plan with patient, nursing staff around 55 minutes
Anticipated Discharge: > 48 hours
Subjective/Interval History
-
Date of Service: April 05, 2025
Did well over night
Not in distress
Able to answer questions
Denies sob/ chest pain/ pain in right hip
Objective Data
-
Labs:
Laboratory Results
04/05/25
03:21
WBC 14.0 H
Hgb 7.7 L
Hct 22.1 L
Plt Count 165 D
APTT 90.5 H
Sodium 132 L
Potassium 4.1
Chloride 96 L
Carbon Dioxide 26
BUN 64 H
Creatinine 3.9 H
Glucose 108 H
Calcium 7.2 L
Total Bilirubin 1.1
AST 3781 H*
ALT 527 H*
Alkaline Phosphatase 127 H
Vital Signs:
Vital Signs
Temp Pulse Resp BP Pulse Ox
98.1 F 71 14 108/54 99
04/05/25 03:37 04/05/25 06:31 04/05/25 06:31 04/05/25 04:00 04/05/25 06:31
I&O
04/04/25 04/05/25 04/06/25
06:59 06:59 06:59
Intake Total 3295.8 / 3324.7 359.9 / 369.7 9.8 / 9.8
Output Total 921 / 921 45 / 45 0 / 0
Balance 2374.8 / 2403.7 314.9 / 324.7 9.8 / 9.8
[2025-04-05 07:28] LABS: Glucose - Point of Care 109 mg/dl (70-99)
[2025-04-05] MEDS: PROTONIX IV 40 MG IV (07:52)
[2025-04-05] MEDS: LOW STRENGTH ASPIRIN 81 MG TUBE (07:52)
--- NOTE | 2025-04-05 08:27 | W.PN.INTV ---
Today's Communication / Plan
Recommendations
Extubated yesterday
Defer ischemic evaluation to cardiology (troponin peaked at 2.66 and was negative as of 04/03)
Heparin drip + ASA on hold given acute anemia
Transfusing PRBC and follow-up posttransfusion CBC
Would not recommend left heart catheterization at this time given worsening ALYSSIA
May be heading towards CRRT
Patient/family is okay with dialysis as long as it is short-term
Renally adjust all medications/antibiotics
Replete K>4, Mg>2
Pain control for chest pain as well as anti-tussants
Diet as per [employer]ER - currently rec'd to remain NPO
Continue ICU level care for this critically ill patient
Assessment
-
#1. Cardiac arrest with Shock
- Reportedly code 9 was called in the evening of 04/02 on the floor for unresponsiveness. Patient noted to have agonal breathing, undetectable blood pressure, undetectable pulse, s/p CPR x 1 cycle for about 2-minute following which ROSC was achieved.
Patient received 1 dose of epinephrine. Emergently intubated by anesthesia service.
- Differential diagnosis broad including acute pulmonary embolism, acute MD, catastrophic stroke/bleed, bowel ischemia etc.
- Stat chest x-ray without any pneumothorax or acute changes, stat EKG was checked which did not show any ST elevation
- In the ICU, patient again developed hypotension however did not lose pulse and was given stat epinephrine pushes, bicarb pushes as well as IV calcium following which her blood pressure improved. Patient received 2 L fluid bolus followed by bicarb
infusion. Right IJ central line and left radial arterial line were placed by Dr. Cabrera
- Continue with levophed and maintain MAP >65�70, aiming for higher BP goals to adequately perfused tissue
- Continue stress dose steroids of hydrocortisone 50 mg IV q6hr x 3 days then wean down as tolerated
- Off bicarb drip since 04/03
- Continue broad-spectrum antibiotics with Zosyn s/p vanc (MRSA swab negative)
- Hold home antihypertensives
- Official echo checked on 04/03/2025 showing a dilated and hypokinetic RV with stage II diastolic dysfunction, and severely increased PA pressures with a PASP of 64 mmHg. Also inferoseptum and anteroseptum are hypokinetic. Previous bedside PocUS
performed on the evening of 04/[address] Cabrera showed a dilated RV and had concern for an acute PE. Heparin drip started and CTA chest, abdomen, pelvis obtained. No acute PE seen on imaging. Small amount of ascites with suspected enteritis/ileus,
and an ill-defined heterogeneous hypoattenuation within the right hepatic lobe dome.
- Given that the CTA chest was negative for an acute PE, I am now more concerned that she had acute coronary syndrome as a cause of her arrhythmia; other DDx is loss of pre-load from severe PH with RV dysfunction that triggered a fatal arrhythmia
--> ideally would want cardiology to perform left heart catheterization. Defer ischemic workup to cardiology. Ideally would want to continue heparin gtt and continue aspirin, however these are currently both on hold given her acute anemia today.
If H&H remains stable then these can both be restarted
- After her cardiac arrest, she was reaching for the ET tube - hence there was no need for therapeutic hypothermia or targeted temperature management at that time; she is now awake, alert and oriented
#2. Acute hypoxic + hypercapnic respiratory failure requiring mechanical ventilation (intubated 04/02, extubated 04/04)
- Patient currently on room air, breathing comfortably and saturating 99%
- Keep SpO2 >90-94%
- Continue aspiration precautions; keep HOB >30-45�
- prn nebulized bronchodilators - not currently bronchospastic
#3. Pneumonia, likely aspiration due to cardiac arrest
- CXR after her cardiac arrest shows increased patchy opacification in the right base as well as retrocardiac opacification. Suspect that this is due to aspiration pneumonia
- Continue with antibiotics as above
- Trend WBC and monitor fever curve
- Continue with Zosyn (started 04/03/2025); IV vancomycin stopped as MRSA swab negative
#4. Lactic acidosis - now resolved as of 04/05
- S/p 2 L IV fluid bolus followed by continued IV hydration
- Blood cultures x2 checked on 04/02, urine culture and sputum Cx both checked on 04/03 - follow up results. Continue broad-spectrum antibiotics with zosyn
- No bowel ischemia on Ct A/P form 04/02
- Continue pressors as needed to keep MAP above 65. Continue stress dose steroids
- Lactate now normal as of this AM - no need to continue trending at this time
#5. Right-sided femoral neck fracture s/p hemiarthroplasty - OR date: 04/01/2025
- Pain control
- Postoperative management as per orthopedic surgery
#6. Acute anemia
- Transfuse to keep Hb >7-8 g/dL, keep plt>50k
- No current signs of bleeding
- Continue with PPI 40 mg IV daily; her stool is green hence no need to consult GI and no need to raise PPI to BID as of now
- Hold heparin gtt and ASA for now until H/H is stable for >2-3 CBCs in a row over a 6-12 hours period of time
- SCDs for now for DVT ppx
Other medical diagnoses:
- HTN
- HLD
- Dementia
On 04/03, Dr. Mario updated the patient's [id number], Porsche, patient's grand-daughter, Kaylee, and the patient's grandson, Jaron.
I discussed the case on 04/04 with the patient's grand-daughter, Sanna, daughter, Madonna, and son, Jaron -all questions were answered.
Continue ICU level of care for this critically ill patient requiring vasopressors to maintain adequate MAP.
Critical care statement: A total of 38 minutes of critical care time was provided for this patient today. This includes management of unstable vital signs, evaluation of the patient at bedside, reviewing the patient's pertinent medical records
including radiographs, microbiology, laboratory evaluations, and discussion with primary team, consultants, pharmacy, nutrition, physical therapy, case management, charge nurse, critical care nursing, and respiratory therapy.
Data:
CXR 03/2025: Unremarkable
KUB 03/2025: No acute change
Hip X ray 03/2025: Acute displaced right hip fracture
Moderate right hip osteoarthritis.
Mild bony mineralization.
Moderate fecal material in the colon
Subjective Dataa
Subjective Data
Date of Service:
Date of Service: April 05, 2025
Chief Complaint: Health And Wellness Coach Follow Up
Subjective:
Patient was seen and evaluated this morning. Extubated yesterday. Off and on Levophed, currently off but has been requiring up to 1 mcg/min. Current BP 85/58, 109/52 via A-line, heart rate 80 and saturating 91% on room air. Pt Hb dropped to 7.7
this AM - no active bleeding seen clinically. Stool has been green. 1 U PRBC being transfused. Patient's main complaint is a dry cough with chest discomfort. Denies TELLEZ, nausea, vomiting, fevers or chills.
Review of Systems
General: Other (Negative unless mentioned above)
Objective Data
Data Reviewed
Vital Signs / I&O / Oxygen:
Vital Signs
Temp Pulse Resp BP Pulse Ox
98 F 77 16 108/54 97
04/05/25 07:43 04/05/25 07:30 04/05/25 07:30 04/05/25 04:00 04/05/25 07:57
Intake and Output
04/04/25 04/05/25 04/06/25
06:59 06:59 06:59
Intake Total 3295.8 / 3324.7 359.9 / 369.7 29.4 / 29.4
Output Total 921 / 921 45 / 45 15 / 15
Balance 2374.8 / 2403.7 314.9 / 324.7 14.4 / 14.4
SaO2 [A/C] 97
SaO2 97
Nasal Cannula flow liters per 2
minute
Physical Exam
General: Respiratory Distress (negative), Comfortable, Chills (negative) and Sweats (negative)
HEENT: Normocephalic and Anicteric
Cardiovascular: S1-S2 and Peripheral Edema (negative)
Respiratory: Wheeze (negative), Crackles (negative), Rhonchi (negative), Non-Labored Respirations and Stridor (negative)
GI: Soft, Non Distended and Normal Bowel Sounds
Neurology: Awake, Alert, Oriented and Tremors (negative)
Skin: Warm, Dry, Cyanosis (negative) and Jaundice (negative)
Labs/Micro/Reports
Lab Data
04/05/25 03:21
04/05/25 03:21
Laboratory Results
04/04/25 04/04/25 04/04/25
09:14 12:56 14:58
APTT 86.8 H 85.5 H
pH 7.47 H
pCO2 32
pO2 93
HCO3 23.3
O2 Delivery Level
04/05/25
03:21
APTT 90.5 H
pH
pCO2
pO2
HCO3
O2 Delivery Level
Microbiology
04/03/25 03:51 Sputum Respiratory Culture - Preliminary
NO GROWTH
04/03/25 03:51 Sputum Gram Stain - Preliminary
04/02/25 23:55 Blood/Venous Blood Culture - Preliminary
No Growth in 48 hours- Final report to follow
04/02/25 23:44 Blood/Venous Blood Culture - Preliminary
No Growth in 48 hours- Final report to follow
04/03/25 00:27 Urine Urine Culture - Final
NO GROWTH
04/03/25 00:26 Nose Nasal Screen MRSA (PCR) - Final
MRSA not detected - performed by PCR methodology.
04/03/25 00:26 Nasal Swab Influenza Types A & B (ADÁN) - Final
Negative for Influenza A & B, NAAT
Negative results must be combined with clinical observations
and patient history.
Nucleic Acid Amplification test (NAAT)performed on the
[employer] platform.
--- NOTE | 2025-04-05 08:28 | W.PN.NEPH.PH ---
Today's Communication / Plan
-
limit IVF
Assessment/Plan
-
Impression:
Admission for hip fracture
Cardiac arrest status post surgery
ALYSSIA (4+ blood and 3+ albumin)
Gapped metabolic acidosis (lactic acid ~ 8) acidemia
Hypertension
Dementia
Dyslipidemia
Left renal atrophy (noted by CT)
VDRF
shock liver
Plan:
follow BMP
maintain MAP > 65 with levophed if necessary
transfuse PRBC today
check LDH and haptoglobin
maintain wen
continue stress dose steroids
repeat urine studies
no HD per daughter (POA)
critical care time 40 minutes
-
-
Date of Service: April 05, 2025
CC / HPI / ROS
-
Chief Complaint:
Acute kidney and
History of Present Illness:
ALYSSIA worsening with creatinine up to 3.9
Hemodynamically labile on/off pressor support. currently off levophed
hgb down to 7.7 this am
oligoanuric
liquid stool, though volume less
LFTs high, but improving
critically ill in ICU
Review of Systems:
no CP/SOB
on NC
no abd pain
no appetite
Labs
-
Labs:
WBC 14.0 10^3/uL (4.8-10.8) H 04/05/25 03:21
RBC 2.59 10^6/uL (4.20-5.40) L 04/05/25 03:21
Hgb 7.7 g/dL (12.0-16.0) L 04/05/25 03:21
Hct 22.1 % (37.0-47.0) L 04/05/25 03:21
Plt Count 165 10^3/uL (130-400) D 04/05/25 03:21
Sodium 132 mmol/L (135-145) L 04/05/25 03:21
Potassium 4.1 mmol/L (3.5-5.1) 04/05/25 03:21
Chloride 96 mmol/L (98-107) L 04/05/25 03:21
Carbon Dioxide 26 mmol/L (22-30) 04/05/25 03:21
BUN 64 mg/dl (7-17) H 04/05/25 03:21
Creatinine 3.9 mg/dL (0.6-1.0) H 04/05/25 03:21
eGFR 10.72 04/05/25 03:21
Glucose 108 mg/dl (70-99) H 04/05/25 03:21
Calcium 7.2 mg/dl (8.4-10.2) L 04/05/25 03:21
Phosphorus 6.9 mg/dl (2.5-4.5) H 04/05/25 03:21
Izo-D-Krxutwyrlil Pept 92008 pg/ml 04/02/25 18:14
Albumin 2.6 g/dl (3.5-5.0) L 04/05/25 03:21
Physical Exam
-
Vital Signs:
Vital Signs
Temp Pulse Resp BP Pulse Ox
98 F 77 16 108/54 97
04/05/25 07:43 04/05/25 07:30 04/05/25 07:30 04/05/25 04:00 04/05/25 07:57
Cardiovascular:: Regular rate and rhythm
Respiratory:: Bilateral: Coarse
Lung Excursion:: Normal
Abdomen:: Nontender and Soft
Bowel Sounds:: None
Extremity Edema:: +1: Bilateral:
[2025-04-05 08:50] LABS: Glycohemoglobin (HgbA1c) 5.7 % (4.0-5.6)
[2025-04-05 09:50] LABS: Urine Albumin 3+ (Neg - Trace); Urine Bilirubin Negative (Negative); Urine Character Clear (Clear); Urine Color Yellow; Urine Glucose Negative (Negative); Urine Ketone Negative (Negative); Urine Leukocyte 3+ (Negative); Urine Nitrite Negative (Negative); Urine Occult Blood 4+ (Negative); Urine Specific Gravity 1.015 (<1.030); Urine Urobilinogen Negative (Neg - 1+)
--- NOTE | 2025-04-05 09:54 | PTOTSP ---
Speech Therapy Evaluation:
Pt with acute on chronic risk risk factors of dysphagia (Dementia, intubation (2 days), cardiac arrest). Vocal quality weak and hoarse following intubation. She demonstrated consistent s/sx of aspiration following all liquid trials. CXR with new RLL
pneumonia and WBC increased.
Recommend:
1. Temporary NPO
2. Essential medications crushed in puree
3. Oral care 3x/daily
4. MECHANICAL MAINTENANCE to follow to assess candidacy for diet initiation versus determine need for instrumental assessment.
[2025-04-05 10:10] LABS: LDH 7119 U/L (120-246)
--- NOTE | 2025-04-05 10:17 | W.PN.CD ---
Today's Communication / Plan
-
- Now extubated, off Levophed.
- Can consider stress test at some point (possibly as an outpatient); would not persue cardiac catheterization given worsening ALYSSIA.
- Continue supportive care.
Impression / Plan
-
A/P: 84-year-old female with history of dementia, hypertension and hyperlipidemia who had presented to emergency room on 04/01 after a fall. She subsequently had cardiac arrest post-op hip surgery.
Cardiac arrest unclear cause possible NSTEMI?
- LAD wall motion abnormality on echo; although would imagine a larger degree of troponin elevation if new LAD infarct
- continue supportive care
- Now extubated, off Levophed.
- EKG nonspecific
- echo below; ischemic eval possibly at some point if agreeable.
- The cause of the patient's event does not appear to be primarily cardiac.
- Can consider stress test at some point (possibly as an outpatient); would not persue cardiac catheterization given worsening ALYSSIA.
- Continue supportive care.
- Peak troponin 2.6--most likely acute nonischemic myocardial injury in the setting of hypotension (code) and multi organ dysfunction, particularly ALYSSIA.
Hypoxic respiratory failure requiring ventilator support
- Now extubated.
Lactic acidosis
- resolved
Multiorgan dysfunction with ALYSSIA, hepatic failure, blood dyscrasias.
-Continue to monitor; supportive care.
Abnormal abdominal CT.
-Periportal edema.
-Ill-defined heterogeneous hypoattenuation throughout the right hepatic lobe dome region.
-Bilateral hypoattenuating renal lesions, some which are compatible with simple cysts and others which are too small to accurately characterize, and for which no imaging follow-up is recommended.
-Small volume abdominopelvic ascites.
-Prominent fluid about the ventral margin of the proximal pancreas.
-Workup/management as per primary team.
Hip fracture s/p ORIF
- Recommendations as per Ortho.
HTN
-Now off of pressors; monitor blood pressure.
HLD
Dementia
Subjective: Now extubated, awake. No cardiac symptoms. Family at bedside.
Echo: CONCLUSIONS
Dilated and hypokinetic right ventricle.
The inferoseptum and anteroseptum and possibly the anterior wall ( not well
seen since apicals were off axis) are hypokinetic.
EF 50-55%.
Stage II diastolic dysfunction suggestive of abnormal relaxation and increased
filling pressures.
Moderately dilated right atrium.
Mild mitral regurgitation.
Mild to moderate aortic regurgitation.
Moderate to severe tricuspid regurgitation.
Estimated PASP 64 mmHg and RA 3 mmHg.
No prior study available for comparison.
Physical Exam
Vital Signs/Labs
Vital Signs
Temp Pulse Resp BP Pulse Ox
98 F 77 16 108/54 97
04/05/25 07:43 04/05/25 07:30 04/05/25 07:30 04/05/25 04:00 04/05/25 07:57
04/04/25 04/05/25 04/06/25
06:59 06:59 06:59
Actual Weight 68.1 kg 68.7 kg
04/05/25 03:21
04/05/25 03:21
PT 22.7 Sec (11.4-14.6) H 04/02/25 19:29
INR 1.98 04/02/25 19:29
APTT 90.5 Sec (23.4-35.0) H 04/05/25 03:21
Magnesium 2.0 mg/dl (1.6-2.3) 04/05/25 03:21
Triglycerides 159 mg/dl (10-149) H 04/05/25 03:21
LDL Cholesterol, Calc 33 mg/dl 04/05/25 03:21
VLDL Cholesterol, Calc 31 mg/dl (0-30) H 04/05/25 03:21
HDL Cholesterol 27 mg/dl 04/05/25 03:21
04/02/25
18:14
Cnq-H-Trbvmljgnoj Pept 08380
LAB Results
04/02/25 04/02/25 04/03/25
18:14 23:44 06:11
Troponin I 0.724 H* 1.440 H* D 2.600 H* D
04/03/25
12:22
Troponin I < 0.012 D
Physical Exam
Constitutional: No acute distress and Comfortable
EENT: Anicteric
Cardiovascular: Rhythm & rate is regular, Pedal edema is absent, Systolic murmur absent and S1S2 is normal
Respiratory: Respiratory effort normal, Wheeze Absent and Rhonchi Present
GI: Soft
Neuro/Psych: AO x 3
Other: Skin (Warm, dry, intact)
Data Reviewed
-
Date of Service: April 05, 2025
EKG: Tracing Personally Visualized and interpreted (Telemetry: Sinus rhythm, PACs)
Echo: Report Reviewed by me (EF 50-55%; moderate to severe TR)
Medical Tests (PFT, Pathology etc): Report Reviewed by me (Abdominal CT as outlined above) and Discussed with Family (Daughter and son at bedside)
Labs: Labs Reviewed by me
Critical Care Time (in minutes): 46
[2025-04-05] MEDS: ProAmatine 5 MG PO ×2 (10:19→14:13)
[2025-04-05 10:24] LABS: Urine Bacteria Moderate (Negative); Urine Squamous Cell 16-20 /LPF (Few)
[2025-04-05] MEDS: DILAUDID 0.25 MG IV ×2 (10:29→17:31)
[2025-04-05 10:40] LABS: Urine Sodium 17 mmol/L (30-90)
[2025-04-05] MEDS: CALCIUM GLUCONATE 100 IV (11:06)
--- NOTE | 2025-04-05 11:14 | PTCARENOTE ---
Pt AAOx2. Very forgetful.
Heparin on hold per order. Awaiting type and screen results. Will given PRBC when available.
Sinus rhythm with PACs. BP stable off Levophed via a-line. General +1 edema.
Pt continues to have frequent productive cough. Crackles noted at left base. SpO2 89-90% on RA. Now 98% on 1L NC.
NPO except crushed meds per speech eval. FMS d/c's.
Poor urine output via wen. Specimen sent per order.
Right hip dressing C/D/I. Pedal pulses via doppler.
All other assessments unchanged. Family at bedside.
[2025-04-05 12:06] LABS: Glucose - Point of Care 118 mg/dl (70-99)
--- NOTE | 2025-04-05 12:29 | W.PN.UPDATE ---
Update Note
Progress Note Update
RTSP. d/w daughter and JUSTA. We reviewed the ALYSSIA and course of ALYSSIA. We discussed dialysis and duration-temporary vs. jail. They would not want demand generator manager. We discussed from kidney failure.
They understand she would still need to deal with recent hip surgery and recovery/therapy from that at some point. We discusses CRRT, which would be used if they decided to try dialysis for a short term.
There is no urgency on that decision today.
30 minutes critical care time
[2025-04-05] MEDS: PHENERGAN WITH CODEINE SYRUP 10 ML PO ×2 (12:30→20:10)
[2025-04-05] MEDS: LIDOCAINE 4% PATCH 1 PATCH TOPICAL (12:30)
--- NOTE | 2025-04-05 14:58 | CM ---
Extubated. L renal atrophy, kidney function worsening, transfused w 1 U PRBC. had lengthy discussion with daughter re: Dialysis. Therapy recommends HH PT.Will get preferences for HH after decision for HD is made.
--- NOTE | 2025-04-05 16:58 | PTCARENOTE ---
1 unit PRBC infusing at this time. All other assessments unchanged.
[2025-04-05] MEDS: ROBITUSSIN 200 MG PO ×2 (17:31→23:10)
[2025-04-05] MEDS: ProAmatine PO ×2 (17:31→17:38)
[2025-04-05 21:07] LABS: Hematocrit 26.4 % (37.0-47.0); Hemoglobin 9.4 g/dL (12.0-16.0); Mean Corp Hgb Conc. 35.6 g/dL (33.0-37.0); Mean Corpuscular Hgb 30.4 pg (27.0-31.0); Mean Corpuscular Volume 85.4 fL (81.0-99.0); Mean Platelet Volume 10.2 fL (7.4-10.4); Platelet Count 145 10^3/uL (130-400); Red Blood Cell Count 3.09 10^6/uL (4.20-5.40); Red Cell Dist. Width 12.9 % (11.5-14.5); White Blood Cell Count 14.5 10^3/uL (4.8-10.8)
--- NOTE | 2025-04-05 21:12 | PTCARENOTE ---
Received pt from previous RN. Pt is AAOx2 (time), forgetful at times, bed alarm in place, b/l LE neurovascular checks (see worklist). NSR w/ PACs on the monitor, doppler pedal pulses. Pt on 1L NC O2 sat 99%, pt weaned to RA O2 sat dropped to 86%, 1L
placed back on pt. Lungs coarse/diminished, pt with non-productive harsh cough. Pt incont of stool. Ny in place, hygiene provided. Right hip dressing c/d/i. SCDs in place. CHG and mouth care provided. Call juarez in reach. Safe environment
maintained.
--- NOTE | 2025-04-05 23:19 | PTCARENOTE ---
Systems reviewed, no new changes in assessment. Carlee zeroed and transduced. Safe environment maintained.
[2025-04-06] MEDS: ZOSYN 50 IV ×3 (02:42→17:39)
[2025-04-06 04:49] VITALS: BMI 28.9
[2025-04-06 05:02] LABS: Hematocrit 25.3 % (37.0-47.0); Hemoglobin 8.9 g/dL (12.0-16.0); Mean Corp Hgb Conc. 35.2 g/dL (33.0-37.0); Mean Corpuscular Hgb 29.8 pg (27.0-31.0); Mean Corpuscular Volume 84.6 fL (81.0-99.0); Mean Platelet Volume 10.4 fL (7.4-10.4); Platelet Count 126 10^3/uL (130-400); Red Blood Cell Count 2.99 10^6/uL (4.20-5.40); Red Cell Dist. Width 12.9 % (11.5-14.5); White Blood Cell Count 13.2 10^3/uL (4.8-10.8)
--- NOTE | 2025-04-06 05:13 | PTCARENOTE ---
Systems reviewed, no new changes in assessment. AM labs provided. Safe environment maintained.
[2025-04-06 05:31] LABS: ALT (SGPT) 273 U/L (0-35); Albumin 2.5 g/dl (3.5-5.0); Alkaline Phosphatase 106 U/L (38-126); Blood Urea Nitrogen 85 mg/dl (7-17); Calcium 7.5 mg/dl (8.4-10.2); Carbon Dioxide 22 mmol/L (22-30); Chloride 99 mmol/L (98-107); Estimated Creatinine Clearance 7 ml/min; Glucose 112 mg/dl (70-99); Potassium 4.4 mmol/L (3.5-5.1); Sodium 132 mmol/L (135-145); Total Bilirubin 1.2 mg/dl (0.2-1.3); Total Protein 4.3 g/dl (6.3-8.2); eGFR 8.15
[2025-04-06 05:41] LABS: AST (SGOT) 911 U/L (14-36)
[2025-04-06] MEDS: SOLU-CORTEF 50 MG IV ×3 (05:54→20:25)
--- NOTE | 2025-04-06 06:54 | W.PN.ORTHO ---
Today's Communication / Plan
-
PT/OT
Heparin/aspirin for DVT prophylaxis
Hip precautions
Weightbearing as tolerated with walker
Skin clips removed 2 weeks postop
Follow-up with orthopedics 4 weeks postop
Appreciate medical team effort, orthopedics to sign off for now
Assessment
.
Distal Motor Intact: Yes
Dressing:
Clean, dry and intact.
Plan
.
Surgery / Date: 04/01/25 Right hip hemiarthroplasty - Dr. Gonzalez
DVT Prophylaxis: Heparin
Activity:
Out of bed.
PT/OT
Discharge Plan: SNF
Subjective
.
.:
Patient resting comfortably.
Vital Signs and Labs
.
Vital Signs and Labs:
Lab Results
04/06/25 04:39
04/06/25 04:39
Temp Pulse Resp BP Pulse Ox
98.2 F 63 13 148/69 99
04/06/25 03:02 04/06/25 06:30 04/06/25 06:30 04/05/25 19:01 04/06/25 06:30
PT 22.7 Sec (11.4-14.6) H 04/02/25 19:29
INR 1.98 04/02/25 19:29
[2025-04-06] MEDS: LOW STRENGTH ASPIRIN 81 MG PO (07:29)
[2025-04-06] MEDS: ROBITUSSIN 200 MG PO ×3 (07:30→21:33)
[2025-04-06] MEDS: ProAmatine PO ×3 (07:30→17:38)
[2025-04-06] MEDS: LIDOCAINE 4% PATCH 1 PATCH TOPICAL (07:31)
[2025-04-06] MEDS: PROTONIX IV 40 MG IV (07:31)
[2025-04-06] MEDS: NSS (PRESERVATIVE FREE) 10 ML IV (07:31)
[2025-04-06 07:32] LABS: Iron 215 ug/dl (37-170)
[2025-04-06] MEDS: HEPARIN 5000 UNITS SC ×2 (07:32→20:25)
--- NOTE | 2025-04-06 07:59 | PTCARENOTE ---
Assumed care of pt. approx 0700.
Focally intact, Normocephalic, aaox3 slight confusion on time, promoting sleep/wake cycle with sunlight.
NSR w.o ectopy noted, normothermic, slightly hypertensive via arterial access.
1L 02 sp02 98 will titrate off if pt. tolerates of note, attempts to titrate off per night time unsuccessful.
Oliguric, 0-10 ml/hr urine via wen.
Central line intact, awaiting orders/family meeting.
--- NOTE | 2025-04-06 08:27 | W.PN.INTV ---
Today's Communication / Plan
Recommendations
Extubated on 04/04
Defer ischemic evaluation to cardiology (troponin peaked at 2.66 and was negative as of 04/03)
Heparin drip stopped yesterday due to acute anemia
Given that Hb remained stable for >8 hours over 2 CBC blood draws, okay to resume aspirin and chemical DVT prophylaxis; defer resuming heparin drip to cardiology
Transfuse PRBC if needed to maintain H&H >7-8 g/dL; keep plt>50k
Would not recommend left heart catheterization at this time given worsening ALYSSIA
May be heading towards acute HD - as of 04/05, patient/family is okay with dialysis as long as it is short-term; patient previously said that she would never want dialysis however her opinion has changed
Renally adjust all medications/antibiotics
Replete K>4, Mg>2
Pain control for chest discomfort (?related to recent CPR in setting of intubation and cough s/p extubation); continue anti-tussants
Diet as per OCCUPATIONAL THERAPY SPECIALIST - rec'd to remain NPO + FEES recommended; if patient/family does not want to undergo additional OCCUPATIONAL THERAPY SPECIALIST evaluation then would recommend hospice with comfort feeds
Patient is stable for downgrade out of ICU to telemetry. No additional recommendations at this time. Domain Architect/Pulmonary service will now sign off. Please reconsult if there are any additional questions/concerns, or if patient's respiratory
status deteriorates.
Assessment
-
#1. Cardiac arrest with Shock
- Reportedly code 9 was called in the evening of 04/02 on the floor for unresponsiveness. Patient noted to have agonal breathing, undetectable blood pressure, undetectable pulse, s/p CPR x 1 cycle for about 2-minute following which ROSC was achieved.
Patient received 1 dose of epinephrine. Emergently intubated by anesthesia service.
- Differential diagnosis broad including acute pulmonary embolism, acute NH, catastrophic stroke/bleed, bowel ischemia etc.
- Stat chest x-ray without any pneumothorax or acute changes, stat EKG was checked which did not show any ST elevation
- In the ICU, patient again developed hypotension however did not lose pulse and was given stat epinephrine pushes, bicarb pushes as well as IV calcium following which her blood pressure improved. Patient received 2 L fluid bolus followed by bicarb
infusion. Right IJ central line and left radial arterial line were placed by Dr. Cabrera
- Continue with levophed and maintain MAP >65�70, aiming for higher BP goals to adequately perfused tissue
- Continue stress dose steroids of hydrocortisone 50 mg IV q6hr x 3 days then wean down as tolerated --> start solucortef 50mg IV q12hr x 2 days then 50mg daily x 2 days then stop
- Off bicarb drip since 04/03
- Continue broad-spectrum antibiotics with Zosyn s/p vanc (MRSA swab negative)
- Hold home antihypertensives; midodrine with holding parameters started yesterday due to hypotension and to assist getting her off levophed
- Official echo checked on 04/03/2025 showing a dilated and hypokinetic RV with stage II diastolic dysfunction, and severely increased PA pressures with a PASP of 64 mmHg. Also infero-septum and bunny-septum are hypokinetic. Previous bedside PocUS
performed on the evening of 04/[address] Cabrera showed a dilated RV and had concern for an acute PE. Heparin drip started and CTA chest, abdomen, pelvis obtained. No acute PE seen on imaging. Small amount of ascites with suspected enteritis/ileus,
and an ill-defined heterogeneous hypoattenuation within the right hepatic lobe dome.
- Given that the CTA chest was negative for an acute PE, I am now more concerned that she had acute coronary syndrome as a cause of her arrhythmia; other DDx is loss of pre-load from severe PH with RV dysfunction that triggered a fatal arrhythmia
--> ideally would want cardiology to perform left heart catheterization. Defer ischemic workup to cardiology. Ideally would want to continue heparin gtt and continue aspirin, however these are currently both on hold given her acute anemia on 04/05.
Hb 8.9 this AM - ok to resume ASA. Defer resuming heparin gtt to cardiology
- After her cardiac arrest, she was reaching for the ET tube - hence there was no need for therapeutic hypothermia or targeted temperature management at that time; she is now awake, alert and oriented
#2. Acute hypoxic + hypercapnic respiratory failure requiring mechanical ventilation (intubated 04/02, extubated 04/04)
- Patient currently on 2L/min, although she was on room air yesterday; currently breathing comfortably and saturating 96%
- Maintain SpO2 >90-94%
- Continue aspiration precautions; keep HOB >30-45�
- prn nebulized bronchodilators - not currently bronchospastic
#3. Pneumonia, likely aspiration due to cardiac arrest
- CXR after her cardiac arrest shows increased patchy opacification in the right base as well as retrocardiac opacification. Suspect that this is due to aspiration pneumonia
- Continue with antibiotics as above
- Trend WBC and monitor fever curve
- Continue with Zosyn (started 04/03/2025); IV vancomycin stopped as MRSA swab negative
#4. Lactic acidosis - now resolved as of 04/05
- S/p 2 L IV fluid bolus followed by continued IV hydration
- Blood cultures x2 checked on 04/02, urine culture and sputum Cx both checked on 04/03 - follow up results. Continue broad-spectrum antibiotics with zosyn
- No bowel ischemia on Ct A/P form 04/02
- Keep MAP above 65. Continue stress dose steroids with wean as above
- Lactate now normal as of this AM - no need to continue trending at this time
#5. Right-sided femoral neck fracture s/p hemiarthroplasty - OR date: 04/01/2025
- Pain control
- Postoperative management as per orthopedic surgery
#6. Acute anemia
- Transfuse to keep Hb >7-8 g/dL, keep plt>50k
- No current signs of bleeding
- Continue with PPI 40 mg IV daily; her stool has been green hence no need to consult GI and no need to raise PPI to BID as of now
- Heparin gtt and ASA both stopped yesterday; now that Hb is stable for 2 CBCs in a row over an 8 hour period, ok to resume ASA and will defer resuming heparin gtt to cardiology. -
DVT ppx: Ok to start HSQ + SCDs
Other medical diagnoses:
- HTN
- HLD
- Dementia
On 04/03, Dr. Mario updated the patient's [id number], Porsche, patient's grand-daughter, Kaylee, and the patient's grandson, Jaron.
I discussed the case on 04/04 with the patient's grand-daughter, Sanna, daughter, Madonna, and son, Jaron -all questions were answered.
Patient is stable for downgrade out of ICU to telemetry. No additional recommendations at this time. Domain Architect/Pulmonary service will now sign off. Thank you for allowing us to be involved in the care of this patient. Please reconsult if there
are any additional questions/concerns, or if patient's respiratory status deteriorates.
Data:
CXR 03/2025: Unremarkable
KUB 03/2025: No acute change
Hip X ray 03/2025: Acute displaced right hip fracture
Moderate right hip osteoarthritis.
Mild bony mineralization.
Moderate fecal material in the colon
Total time spent today was 56 minutes for this encounter. Time includes reviewing laboratory test/imaging results, reviewing pertinent medical records, obtaining and reviewing medical history, performing an appropriate exam, ordering medications,
tests and procedures. Time also includes documentation of this encounter, coordinating patient care and communicating with other healthcare professionals. Total time does not include separately billed tests performed on this date of service.
Subjective Dataa
Subjective Data
Date of Service:
Date of Service: April 06, 2025
Chief Complaint: Domain Architect Follow Up
Subjective:
Patient was seen and evaluated this morning. No acute events reported from overnight. She currently denies shortness of breath, and her chest pain is improved. Levophed weaned off this morning at 8:00AM. She denies TELLEZ, nausea, fevers or chills.
Still having a mild cough.
Review of Systems
General: Other (Negative unless mentioned above)
Objective Data
Data Reviewed
Vital Signs / I&O / Oxygen:
Vital Signs
Temp Pulse Resp BP Pulse Ox
97.5 F 70 15 153/72 99
04/06/25 07:00 04/06/25 09:00 04/06/25 09:00 04/06/25 07:30 04/06/25 09:00
Intake and Output
04/05/25 04/06/25 04/07/25
06:59 06:59 06:59
Intake Total 359.9 / 369.7 635.4 / 665.4
Output Total 45 / 45 93 / 93
Balance 314.9 / 324.7 542.4 / 572.4
SaO2 [A/C] 97
SaO2 99
Nasal Cannula flow liters per 1
minute
Physical Exam
General: Respiratory Distress (negative), Comfortable, Chills (negative) and Sweats (negative)
HEENT: Normocephalic and Anicteric
Cardiovascular: S1-S2 and Peripheral Edema (negative)
Respiratory: Clear, Wheeze (negative), Crackles (negative), Rhonchi (negative), Non-Labored Respirations and Stridor (negative)
GI: Soft, Non Distended and Normal Bowel Sounds
Neurology: Awake, Alert, Oriented and Tremors (negative)
Skin: Warm, Dry, Cyanosis (negative) and Jaundice (negative)
Labs/Micro/Reports
Lab Data
04/06/25 04:39
04/06/25 04:39
Microbiology
04/02/25 23:55 Blood/Venous Blood Culture - Preliminary
No Growth in 72 hours- Final report to follow
04/02/25 23:44 Blood/Venous Blood Culture - Preliminary
No Growth in 72 hours- Final report to follow
04/03/25 03:51 Sputum Respiratory Culture - Preliminary
NO GROWTH
04/03/25 03:51 Sputum Gram Stain - Preliminary
04/03/25 00:27 Urine Urine Culture - Final
NO GROWTH
04/03/25 00:26 Nose Nasal Screen MRSA (PCR) - Final
MRSA not detected - performed by PCR methodology.
--- NOTE | 2025-04-06 08:48 | W.PN.CD ---
Today's Communication / Plan
-
- Patient with significant dementia; only BILLY Biggs (name), does not remember meeting me yesterday nor her daughter and son being here by her bedside at that time when I spoke to them all.
- The cause of the patient's event does not appear to be primarily cardiac.
- Patient's creatinine is up to 4.9 today with worsening ALYSSIA; recommend conservative cardiac management overall--poor candidate for aggressive measures.
Impression / Plan
-
A/P: 84-year-old female with history of dementia, hypertension and hyperlipidemia who had presented to emergency room on 04/01 after a fall. She subsequently had cardiac arrest post-op hip surgery.
PEA arrest>
- ROSC after 1 round of ACLS.
- EF 50-55% LAD wall motion abnormality on echo; would imagine a larger degree of troponin elevation if new LAD infarct.
- continue supportive care
- EKG nonspecific
- The cause of the patient's event does not appear to be primarily cardiac.
- Peak troponin 2.6--most likely acute nonischemic myocardial injury in the setting of hypotension (code) and multi organ dysfunction, particularly ALYSSIA.
- Patient's creatinine is up to 4.9 today with worsening ALYSSIA; recommend conservative cardiac management overall--poor candidate for aggressive measures.
Hypoxic respiratory failure requiring ventilator support
- Now extubated.
- Respiratory status appears to be stable.
Lactic acidosis
- resolved
Multiorgan dysfunction with ALYSSIA, hepatic failure, blood dyscrasias.
-Continue to monitor; supportive care.
Abnormal abdominal CT.
-Periportal edema.
-Ill-defined heterogeneous hypoattenuation throughout the right hepatic lobe dome region.
-Bilateral hypoattenuating renal lesions, some which are compatible with simple cysts and others which are too small to accurately characterize, and for which no imaging follow-up is recommended.
-Small volume abdominopelvic ascites.
-Prominent fluid about the ventral margin of the proximal pancreas.
-Workup/management as per primary team.
Hip fracture s/p ORIF
- Recommendations as per Ortho.
Moderate to severe TR:
-Relatively stable/compensated.
HTN
-Now off of pressors; continue to monitor blood pressure.
HLD
Dementia
-Patient with significant dementia; only BILLY Biggs (name), does not remember meeting me yesterday nor her daughter and son being here by her bedside at that time when I spoke to them all.
Subjective: Now extubated, awake. No cardiac symptoms. Family at bedside.
Echo: CONCLUSIONS
Dilated and hypokinetic right ventricle.
The inferoseptum and anteroseptum and possibly the anterior wall ( not well
seen since apicals were off axis) are hypokinetic.
EF 50-55%.
Stage II diastolic dysfunction suggestive of abnormal relaxation and increased
filling pressures.
Moderately dilated right atrium.
Mild mitral regurgitation.
Mild to moderate aortic regurgitation.
Moderate to severe tricuspid regurgitation.
Estimated PASP 64 mmHg and RA 3 mmHg.
No prior study available for comparison.
Physical Exam
Vital Signs/Labs
Vital Signs
Temp Pulse Resp BP Pulse Ox
97.5 F 69 13 153/72 98
04/06/25 07:00 04/06/25 07:30 04/06/25 06:30 04/06/25 07:30 04/06/25 07:53
04/05/25 04/06/25 04/07/25
06:59 06:59 06:59
Actual Weight 68.7 kg 69.4 kg
04/06/25 04:39
04/06/25 04:39
PT 22.7 Sec (11.4-14.6) H 04/02/25 19:29
INR 1.98 04/02/25 19:29
APTT 90.5 Sec (23.4-35.0) H 04/05/25 03:21
Magnesium 2.0 mg/dl (1.6-2.3) 04/05/25 03:21
Triglycerides 159 mg/dl (10-149) H 04/05/25 03:21
LDL Cholesterol, Calc 33 mg/dl 04/05/25 03:21
VLDL Cholesterol, Calc 31 mg/dl (0-30) H 04/05/25 03:21
HDL Cholesterol 27 mg/dl 04/05/25 03:21
04/02/25
18:14
Hft-U-Vrbvbcagucp Pept 99006
LAB Results
04/03/25
12:22
Troponin I < 0.012 D
Physical Exam
Constitutional: No acute distress and Comfortable
EENT: Anicteric
Cardiovascular: Rhythm & rate is regular, Pedal edema is absent, Systolic murmur present (2/) and S1S2 is normal
Respiratory: Respiratory effort normal and Lungs clear to auscul.
GI: Soft
Neuro/Psych: Alert
Other: Skin (Warm, dry)
Data Reviewed
-
Date of Service: April 06, 2025
EKG: Tracing Personally Visualized and interpreted (Telemetry: Sinus rhythm)
Echo: Report Reviewed by me (EF 50-55%, moderate to severe TR)
Labs: Labs Reviewed by me
Critical Care Time (in minutes): 33
--- NOTE | 2025-04-06 08:57 | W.PN.HOSP.TC ---
Today's Communication/Plan
-
.
Assessment / Plan
Assessment / Plan
Physical Exam
-
General: not in distress, comfortable
HEENT: Moist Mucous Membranes, Anicteric and PERRLA.
Respiratory: no wheezes. Good air/ did not hear rales
Cardiac: S1/S2;
GI: Soft, Nontender, Nondistended and Normal Bowel Sounds
Musculoskeletal: No joint swelling. �Negative Edema, Left Lower Extrem. Clean surgical site right lateral thigh
Skin: Warm, Dry and no rash
Neuro:AAOX to self and surroundings only, forgetful, followed simple commands appropriately, moved extremities to commands.
Psych: Calm
# S/P cardiac arrest
cardiology evaluated the patient
Peak troponin 2.6--most likely acute nonischemic myocardial injury in the setting of hypotension (code) and multi organ dysfunction, particularly ALYSSIA. Poor candidate for aggressive measures.
VDRF, extubated 04/04 to 2 liters now. Good lung exam this morning
S/P IV heparin gtt, c/w oral aspirin
Re-introduce BB slowly
Echo is reviewed, LVEF 50-55%, septal wall defect in motion. Moderate to severe TR.
continue supportive care
Appreciate ICU and cardiology doctors help
# ALYSSIA/ Left renal atrophy (noted by CT)
Creatinine continues to trend up, likely ATN from shock, but element of contrast induced AIN still to consider. Low urine out put despite volume resuscitation
Monitor renal function, renally adjust medications. Ny in to monitor I/O closely
s/p IVF
s/p Pressure support to keep MAP >65. On Midodrine with parameters.
Appreciate nephrology help
# Acute ischemic hepatitis
post shock
LFT coming down
Patient denies nausea, expect slow recovery
c/w IVF
# Right hip fracture s/p ORIF on 04/01/2025
She denies pain
d/w ortho service, PT as tolerated.
# Lactic acidosis with leukocytosis
Meet sepsis/ septic shock criteria now, possible aspiration pneumonitis
Empiric IV Abx
# Essential Hypertension
cardiogenic and hypovolemic shock
IV steroid for shock , will wean down
# Hypokalemia, replaced
# Mild acute blood loss anemia post fracture and surgery
s/p one unit of RBCs.
# hyponatremia
#Hyperlipidemia
No changes intended. Holding statin with liver injury
# Dementia
Held meds while sedated. Now can resume slowly as tolerated.
Total time spent to see the patient, examine the patient, review data and lab result, discuss treatment plan with patient, nursing staff around 55 minutes
Anticipated Discharge: > 48 hours
Subjective/Interval History
-
Date of Service: April 06, 2025
She denies sob or chest pain
No abdominal pain
Objective Data
-
Labs:
Laboratory Results
04/05/25 04/06/25
20:50 04:39
WBC 14.5 H 13.2 H
Hgb 9.4 L D 8.9 L
Hct 26.4 L 25.3 L
Plt Count 145 126 L
Sodium 132 L
Potassium 4.4
Chloride 99
Carbon Dioxide 22
BUN 85 H
Creatinine 4.9 H*
Glucose 112 H
Calcium 7.5 L
Total Bilirubin 1.2
AST 911 H*
ALT 273 H
Alkaline Phosphatase 106
Vital Signs:
Vital Signs
Temp Pulse Resp BP Pulse Ox
97.5 F 69 13 153/72 98
04/06/25 07:00 04/06/25 07:30 04/06/25 06:30 04/06/25 07:30 04/06/25 07:53
I&O
04/05/25 04/06/25 04/07/25
06:59 06:59 06:59
Intake Total 359.9 / 369.7 635.4 / 665.4
Output Total 45 / 45 93 / 93 0 / 0
Balance 314.9 / 324.7 542.4 / 572.4
--- NOTE | 2025-04-06 09:14 | PTCARENOTE ---
PT. reporting 06/04 chest pain w. new onset.
No 5 lead rhythm changes appreciated, 12 lead per protocol. Jet Dyeing Machine Tender made aware.
--- NOTE | 2025-04-06 09:32 | W.PN.NEPH.PH ---
Today's Communication / Plan
-
conservative care
Assessment/Plan
-
Impression:
Admission for hip fracture
Cardiac arrest status post surgery
ALYSSIA (4+ blood and 3+ albumin)
Gapped metabolic acidosis (lactic acid ~ 8) acidemia
Hypertension
Dementia
Dyslipidemia
Left renal atrophy (noted by CT)
VDRF
shock liver
Plan:
follow BMP
maintain MAP > 65 with levophed if necessary
await haptoglobin. LDH >7000 and platelets falling
maintain wen
continue stress dose steroids
long discussion with son and daughter. They have decided no dialysis. I believe that are also leaning towards comfort or at least nonaggressive care.
critical care time 40 minutes
-
-
Date of Service: April 06, 2025
CC / HPI / ROS
-
Chief Complaint:
ALYSSIA
History of Present Illness:
ALYSSIA worsening with creatinine up to 4.9
Hemodynamically labile on/off pressor support. currently off levophed
hgb up to 8.9
anuric
LFTs high, but improving still
critically ill in ICU
Review of Systems:
no SOB
on NC
no abd pain
no appetite
chest discomfort
Labs
-
Labs:
WBC 13.2 10^3/uL (4.8-10.8) H 04/06/25 04:39
RBC 2.99 10^6/uL (4.20-5.40) L 04/06/25 04:39
Hgb 8.9 g/dL (12.0-16.0) L 04/06/25 04:39
Hct 25.3 % (37.0-47.0) L 04/06/25 04:39
Plt Count 126 10^3/uL (130-400) L 04/06/25 04:39
Sodium 132 mmol/L (135-145) L 04/06/25 04:39
Potassium 4.4 mmol/L (3.5-5.1) 04/06/25 04:39
Chloride 99 mmol/L (98-107) 04/06/25 04:39
Carbon Dioxide 22 mmol/L (22-30) 04/06/25 04:39
BUN 85 mg/dl (7-17) H 04/06/25 04:39
Creatinine 4.9 mg/dL (0.6-1.0) H* 04/06/25 04:39
eGFR 8.15 04/06/25 04:39
Glucose 112 mg/dl (70-99) H 04/06/25 04:39
Calcium 7.5 mg/dl (8.4-10.2) L 04/06/25 04:39
Phosphorus 6.9 mg/dl (2.5-4.5) H 04/05/25 03:21
Lye-D-Fjelwjmxsoh Pept 72849 pg/ml 04/02/25 18:14
Albumin 2.5 g/dl (3.5-5.0) L 04/06/25 04:39
Physical Exam
-
Vital Signs:
Vital Signs
Temp Pulse Resp BP Pulse Ox
97.5 F 70 15 153/72 99
04/06/25 07:00 04/06/25 09:00 04/06/25 09:00 04/06/25 07:30 04/06/25 09:00
Cardiovascular:: Regular rate and rhythm
Respiratory:: Bilateral: Coarse
Lung Excursion:: Normal
Abdomen:: Nontender and Soft
Bowel Sounds:: Normal
Extremity Edema:: None: Bilateral:
--- NOTE | 2025-04-06 09:56 | PTCARENOTE ---
Pt. downgraded to TELE.
[2025-04-06 11:12] VITALS: BP 151/80
--- NOTE | 2025-04-06 11:41 | CM ---
Patient has been transferred from ICU to room 2102.
--- NOTE | 2025-04-06 11:51 | VATNOTE ---
Discussion with medical doctor initiated regarding need for IJ TLC, states that we can attempt to establish peripheral access and then remove CVAD. Requested order to DC CVAD.
[2025-04-06] MEDS: DILAUDID 0.25 MG IV ×2 (12:39→18:19)
--- NOTE | 2025-04-06 13:50 | W.PN.UPDATE ---
Update Note
Progress Note Update
Addendum
Met with family. Explained clinical status and answered questions. Family reported the patient living was done 7 years ago included DNR/DNI. They wanted to continue with her wishes. CODE STATUS changed to DNR/DNI. Regarding diet, due to risk of
aspiration, family agreed to do comfort/modified diet for now.
Discussed with IV nurse. Will keep central line for now to avoid further IV intervention/frail skin.
[2025-04-06 15:25] VITALS: BP 143/87
[2025-04-06 15:48] VITALS: BP 131/71; PULSE 85; O2SAT 95
[2025-04-06 15:51] VITALS: BP 131/71; PULSE 85; O2SAT 95
[2025-04-06] MEDS: TYLENOL 1000 MG PO ×2 (16:32→23:00)
[2025-04-06] MEDS: ROBITUSSIN PO (17:38)
[2025-04-06 19:19] VITALS: BP 133/71
[2025-04-06 23:25] VITALS: BP 130/77
[2025-04-07] VITALS (8 sets, daily range): BP systolic 133–156; BP diastolic 72–90; PULSE 73–77; O2SAT 97; BMI 29.3
[2025-04-07] MEDS: ZOSYN 50 IV ×3 (02:20→18:09)
--- NOTE | 2025-04-07 03:15 | PTCARENOTE ---
Pt hx of dementia & Confusion pulled her Ny out and her surgical dressing off. Ny replaced & R hip cleaned with N/S and dressing replaced.
[2025-04-07 07:28] LABS: Hematocrit 26.7 % (37.0-47.0); Hemoglobin 9.3 g/dL (12.0-16.0); Mean Corp Hgb Conc. 34.8 g/dL (33.0-37.0); Mean Corpuscular Hgb 29.9 pg (27.0-31.0); Mean Corpuscular Volume 85.9 fL (81.0-99.0); Mean Platelet Volume 10.4 fL (7.4-10.4); Platelet Count 131 10^3/uL (130-400); Red Blood Cell Count 3.11 10^6/uL (4.20-5.40); Red Cell Dist. Width 13.3 % (11.5-14.5); White Blood Cell Count 13.1 10^3/uL (4.8-10.8)
[2025-04-07] MEDS: TYLENOL 1000 MG PO (07:50)
[2025-04-07] MEDS: LOW STRENGTH ASPIRIN 81 MG PO (07:51)
[2025-04-07] MEDS: ProAmatine PO ×3 (07:52→18:34)
[2025-04-07] MEDS: NSS (PRESERVATIVE FREE) 10 ML IV (07:52)
[2025-04-07] MEDS: PROTONIX IV 40 MG IV (07:52)
[2025-04-07] MEDS: HEPARIN 5000 UNITS SC ×2 (07:53→20:33)
[2025-04-07] MEDS: SOLU-CORTEF 50 MG IV (07:53)
[2025-04-07] MEDS: LIDOCAINE 4% PATCH 1 PATCH TOPICAL (07:55)
[2025-04-07 08:30] LABS: Blood Urea Nitrogen 102 mg/dl (7-17); Calcium 7.8 mg/dl (8.4-10.2); Carbon Dioxide 23 mmol/L (22-30); Chloride 95 mmol/L (98-107); Estimated Creatinine Clearance 6 ml/min; Glucose 108 mg/dl (70-99); Potassium 4.3 mmol/L (3.5-5.1); Sodium 134 mmol/L (135-145); eGFR 6.03
[2025-04-07] MEDS: ROBITUSSIN 200 MG PO ×4 (08:31→20:48)
--- NOTE | 2025-04-07 08:53 | W.PN.CD ---
Today's Communication / Plan
-
Cr 6.3
Supportive care
Cardiology will sign off at this time. Please call with additional questions or concerns.
Impression / Plan
-
A/P: 84-year-old female with history of dementia, hypertension and hyperlipidemia who had presented to emergency room on 04/01 after a fall. She subsequently had cardiac arrest post-op hip surgery, now with renal failure.
PEA arrest
- ROSC after 1 round of ACLS.
- EF 50-55% LAD wall motion abnormality on echo; would imagine a larger degree of troponin elevation if new LAD infarct.
- continue supportive care
- EKG nonspecific
- The cause of the patient's event does not appear to be primarily cardiac.
- Peak troponin 2.6--most likely acute nonischemic myocardial injury in the setting of hypotension (code) and multi organ dysfunction, particularly ALYSSIA.
- Patient's creatinine is up to 6.3 today with worsening ALYSSIA; recommend conservative cardiac management overall--poor candidate for aggressive measures.
ALYSSIA
- Severe, with Cr 6.3 today and BUN 102
- Renal following
- Family does not want dialysis
Presumed ischemic cardiomyopathy
- TTE 04/03/25: EF 50-55%, LAD WMA, hypokinetic RV, stage II DD, mild MR, mild/mod AR, mod/severe TR, PASP 64 mmHg
- Examines euvolemic. No concern for CHF exacerbation
- Continue ASA
- If she does not end up on comfort care/Hospice, we can start statin
Hypoxic respiratory failure requiring ventilator support
- Now extubated.
- Respiratory status appears to be stable.
Lactic acidosis
- resolved
Multiorgan dysfunction with ALYSSIA, hepatic failure, blood dyscrasias.
-Continue to monitor; supportive care.
Hip fracture s/p ORIF
- Recommendations as per Ortho.
Moderate to severe TR:
-Relatively stable/compensated.
HTN
-Now off of pressors; continue to monitor blood pressure.
HLD
Dementia
Subjective: She is complaining of reproducible chest pain and back pain. No CV complaints.
Echo: CONCLUSIONS
Dilated and hypokinetic right ventricle.
The inferoseptum and anteroseptum and possibly the anterior wall ( not well
seen since apicals were off axis) are hypokinetic.
EF 50-55%.
Stage II diastolic dysfunction suggestive of abnormal relaxation and increased
filling pressures.
Moderately dilated right atrium.
Mild mitral regurgitation.
Mild to moderate aortic regurgitation.
Moderate to severe tricuspid regurgitation.
Estimated PASP 64 mmHg and RA 3 mmHg.
No prior study available for comparison.
Physical Exam
Vital Signs/Labs
Vital Signs
Temp Pulse Resp BP Pulse Ox
97.6 F 70 18 145/77 98
04/07/25 07:00 04/07/25 07:00 04/07/25 07:00 04/07/25 07:52 04/07/25 08:36
04/06/25 04/07/25 04/08/25
06:59 06:59 06:59
Actual Weight 153 lb 0.013 oz
04/07/25 05:42
04/07/25 05:42
PT 22.7 Sec (11.4-14.6) H 04/02/25 19:29
INR 1.98 04/02/25 19:29
APTT 90.5 Sec (23.4-35.0) H 04/05/25 03:21
Magnesium 2.0 mg/dl (1.6-2.3) 04/05/25 03:21
Triglycerides 159 mg/dl (10-149) H 04/05/25 03:21
LDL Cholesterol, Calc 33 mg/dl 04/05/25 03:21
VLDL Cholesterol, Calc 31 mg/dl (0-30) H 04/05/25 03:21
HDL Cholesterol 27 mg/dl 04/05/25 03:21
04/02/25
18:14
Ymd-C-Yovkgumzyjq Pept 02043
Physical Exam
Constitutional: No acute distress and Comfortable
Cardiovascular: Rhythm & rate is regular, Pedal edema is absent, S1S2 is normal and Murmur/rub/gallop absent
Respiratory: Respiratory effort normal and Crackles Present
Data Reviewed
-
Date of Service: April 07, 2025
Medical Decision Making: Reviewed Test Results, Independent Historian Assessment, Test Interpretation and Review of Case with other Provider
EKG: Tracing Personally Visualized and interpreted
Echo: Report Reviewed by me
Labs: Labs Reviewed by me
--- NOTE | 2025-04-07 09:23 | W.PN.HOSP.TC ---
Today's Communication/Plan
-
Resume metoprolol, lower dose
Assessment / Plan
Assessment / Plan
Physical Exam
-
General: not in distress, complains of pain in chest
HEENT: Moist Mucous Membranes, Anicteric and PERRLA.
Respiratory: no wheezes. Good air/ did not hear rales
Cardiac: S1/S2; tender chest wall
GI: Soft, Nontender, Nondistended and Normal Bowel Sounds
Musculoskeletal: No joint swelling. �Negative Edema, Left Lower Extrem. Clean surgical site right lateral thigh
Skin: Warm, Dry and no rash
Neuro:AAOX to self and surroundings only, forgetful, followed simple commands appropriately, moved extremities to commands.
Psych: Calm
# S/P cardiac arrest
cardiology evaluated the patient
Peak troponin 2.6--most likely acute nonischemic myocardial injury in the setting of hypotension (code) and multi organ dysfunction, particularly ALYSSIA. Poor candidate for aggressive measures.
VDRF, extubated 04/04 to 2 liters now. Good lung exam this morning
S/P IV heparin gtt, c/w oral aspirin
Re-introduce BB slowly
Echo is reviewed, LVEF 50-55%, septal wall defect in motion. Moderate to severe TR.
continue supportive care
Appreciate ICU and cardiology doctors help
# Chest pain, due to CRP, very tender to touch, will do Tylenol TID, PRN Dilaudid
# Dysphagia, likely secondary to recent intubation and illness. She seems to be swallowing better. Speech therapy recommended to do modified diet if family understands possibility of aspiration. Discussed with the family, agreed to do modified
diet for now.
# ALYSSIA/ Left renal atrophy (noted by CT)
Creatinine continues to trend up, likely ATN from shock, but element of contrast induced AIN still to consider. Low urine out put despite volume resuscitation
Monitor renal function, renally adjust medications. Ny in to monitor I/O closely
s/p IVF
s/p Pressure support to keep MAP >65. On Midodrine with parameters.
Appreciate nephrology help
# Acute ischemic hepatitis
post shock
LFT coming down
Patient denies nausea, expect slow recovery
s/p IVF
# Right hip fracture s/p ORIF on 04/01/2025
She denies pain
d/w ortho service, PT as tolerated.
# Lactic acidosis with leukocytosis
Meet sepsis/ septic shock criteria now, possible aspiration pneumonitis
Empiric IV Abx total 5 days, last day 04/08. Renally adjusting the dose
# Essential Hypertension
cardiogenic and hypovolemic shock
IV steroid for shock , continue to wean off.
# Hypokalemia, replaced
# Mild acute blood loss anemia post fracture and surgery
s/p one unit of RBCs.
# hyponatremia
#Hyperlipidemia
No changes intended. Holding statin with liver injury
# Dementia
# CODE STATUS, discussed with family. Patient is living with well stated DNR/DNI. Would like to pursue her wishes. Code is changed to DNR/DNI
Total time spent to see the patient, examine the patient, review data and lab result, discuss treatment plan with patient, family, consultants nursing staff around 55 minutes
Anticipated Discharge: > 48 hours
Subjective/Interval History
-
Date of Service: April 07, 2025
She reports pain in chest and tenderness
Objective Data
-
Labs:
Laboratory Results
04/07/25
05:42
WBC 13.1 H
Hgb 9.3 L
Hct 26.7 L
Plt Count 131
Sodium 134 L
Potassium 4.3
Chloride 95 L
Carbon Dioxide 23
BUN 102 H*
Creatinine 6.3 H*
Glucose 108 H
Calcium 7.8 L
Vital Signs:
Vital Signs
Temp Pulse Resp BP Pulse Ox
97.6 F 70 18 145/77 98
04/07/25 07:00 04/07/25 07:00 04/07/25 07:00 04/07/25 07:52 04/07/25 08:36
I&O
04/06/25 04/07/25 04/08/25
06:59 06:59 06:59
Intake Total 635.4 / 665.4 290 / 290
Output Total 200 / 200
Balance 542.4 / 572.4 90
[2025-04-07] MEDS: DILAUDID 0.25 MG IV ×2 (10:10→18:09)
--- NOTE | 2025-04-07 10:25 | W.PN.NEPH.PH ---
Addendum entered and electronically signed by Emmanuel Liz DO 04/07/25 11:28:
Discussed dialysis again with both daughter and patient. Although patient in the living will originally said she did not want dialysis she is now having second thoughts (although this goes back and forth)
Patient's underlying dementia will make long-term dialysis a difficult situation
Daughter family and patient will discuss again later this afternoon and I will check back
In the interim I will continue Ny catheter and follow-up lab
Unfortunately this decision will likely need to be sent as she has evolving uremia and worsening of her renal failure
Encounter constitutes high risk situation as discussion of ESRD modality and were discussed in setting of worsening renal failure which would require dialysis
Original Note:
Today's Communication / Plan
-
Sign off
Assessment/Plan
-
Impression:
Admission for hip fracture
Cardiac arrest status post surgery
ALYSSIA (4+ blood and 3+ albumin)
Gapped metabolic acidosis (lactic acid ~ 8) acidemia
Hypertension
Dementia
Dyslipidemia
Left renal atrophy (noted by CT)
VDRF
shock liver
Plan:
Family now opting for comfort care
ALYSSIA continues to worsen with creatinine now up to 6.3 and BUN of 400
We will sign off
-
-
Date of Service: April 07, 2025
CC / HPI / ROS
-
Chief Complaint:
ALYSSIA
History of Present Illness:
ALSYSIA worsening with creatinine up to 6.3
Hemodynamically labile on/off pressor support. currently off levophed
Review of Systems:
no SOB
on NC
no abd pain
no appetite
chest discomfort
Labs
-
Labs:
WBC 13.1 10^3/uL (4.8-10.8) H 04/07/25 05:42
RBC 3.11 10^6/uL (4.20-5.40) L 04/07/25 05:42
Hgb 9.3 g/dL (12.0-16.0) L 04/07/25 05:42
Hct 26.7 % (37.0-47.0) L 04/07/25 05:42
Plt Count 131 10^3/uL (130-400) 04/07/25 05:42
Sodium 134 mmol/L (135-145) L 04/07/25 05:42
Potassium 4.3 mmol/L (3.5-5.1) 04/07/25 05:42
Chloride 95 mmol/L (98-107) L 04/07/25 05:42
Carbon Dioxide 23 mmol/L (22-30) 04/07/25 05:42
BUN 102 mg/dl (7-17) H* 04/07/25 05:42
Creatinine 6.3 mg/dL (0.6-1.0) H* 04/07/25 05:42
eGFR 6.03 04/07/25 05:42
Glucose 108 mg/dl (70-99) H 04/07/25 05:42
Calcium 7.8 mg/dl (8.4-10.2) L 04/07/25 05:42
Phosphorus 6.9 mg/dl (2.5-4.5) H 04/05/25 03:21
Zet-E-Vqzeemqlpnz Pept 03611 pg/ml 04/02/25 18:14
Albumin 2.5 g/dl (3.5-5.0) L 04/06/25 04:39
Physical Exam
-
Vital Signs:
Vital Signs
Temp Pulse Resp BP Pulse Ox
97.6 F 70 18 145/77 98
04/07/25 07:00 04/07/25 07:00 04/07/25 07:00 04/07/25 07:52 04/07/25 08:36
Cardiovascular:: Regular rate and rhythm
Respiratory:: Bilateral: Coarse
Lung Excursion:: Normal
Abdomen:: Nontender and Soft
Bowel Sounds:: Normal
Extremity Edema:: None: Bilateral:
--- NOTE | 2025-04-07 11:50 | CM ---
Addendum entered by Alina Lopez 04/07/25 13:22:
Patient daughter seen in patient room. Reviewed Medicare[employer]gov and will provide listing for patient daughter to consider SNF options.
Original Note:
Patient working with therapy on . CM called to patient daughter and left VM requesting call back to confirm SNF choices. CM will continue to follow for discharge planning needs.
PLan; SNF
[2025-04-07] MEDS: LOPRESSOR 12.5 MG PO ×2 (12:02→20:34)
[2025-04-07 15:14] LABS: Haptoglobin 130 mg/dL (30-200)
[2025-04-07] MEDS: TYLENOL 500 MG PO (18:09)
[2025-04-08] MEDS: TYLENOL PO ×3 (00:12→22:37)
[2025-04-08] MEDS: ZOSYN 50 IV ×2 (02:33→08:09)
[2025-04-08] MEDS: DILAUDID 0.25 MG IV ×4 (02:42→22:13)
[2025-04-08 03:00] VITALS: BP 130/75
[2025-04-08 04:56] LABS: Hematocrit 26.6 % (37.0-47.0); Hemoglobin 9.2 g/dL (12.0-16.0); Mean Corp Hgb Conc. 34.6 g/dL (33.0-37.0); Mean Corpuscular Hgb 30.1 pg (27.0-31.0); Mean Corpuscular Volume 86.9 fL (81.0-99.0); Mean Platelet Volume 10.3 fL (7.4-10.4); Platelet Count 134 10^3/uL (130-400); Red Blood Cell Count 3.06 10^6/uL (4.20-5.40); Red Cell Dist. Width 13.5 % (11.5-14.5); White Blood Cell Count 14.6 10^3/uL (4.8-10.8)
[2025-04-08 05:22] LABS: Blood Urea Nitrogen 119 mg/dl (7-17); Carbon Dioxide 19 mmol/L (22-30); Chloride 98 mmol/L (98-107); Estimated Creatinine Clearance 5 ml/min; Glucose 95 mg/dl (70-99); Sodium 133 mmol/L (135-145)
[2025-04-08] MEDS: LIDOCAINE 4% PATCH 1 PATCH TOPICAL (06:31)
[2025-04-08 07:15] VITALS: BP 130/68
--- NOTE | 2025-04-08 07:56 | W.PN.HOSP.TC ---
Today's Communication/Plan
-
Daughter Madonna P6/14, wants to pursue hospice, focus on making patient comfortable, no hemodialysis
Hold BB due to bradycardia
Assessment / Plan
Assessment / Plan
Physical Exam
-
General: not in distress, complains of pain in chest
HEENT: Moist Mucous Membranes, Anicteric and PERRLA.
Respiratory: no wheezes. Good air/ did not hear rales
Cardiac: S1/S2; tender chest wall
GI: Soft, Nontender, Nondistended and Normal Bowel Sounds
Musculoskeletal: No joint swelling. �Negative Edema, Left Lower Extrem. Clean surgical site right lateral thigh
Skin: Warm, Dry and no rash
Neuro:AAOX to self and surroundings only, forgetful, followed simple commands appropriately, moved extremities to commands.
Psych: Calm
# S/P cardiac arrest
Peak troponin 2.6--most likely acute nonischemic myocardial injury in the setting of hypotension (code) and multi organ dysfunction, particularly ALYSSIA. Poor candidate for aggressive measures.
VDRF, extubated 04/04 to 2 liters now. Good lung exam this morning
S/P IV heparin gtt, c/w oral aspirin
Re-introduce BB slowly but bradycardia noted
Echo is reviewed, LVEF 50-55%, septal wall defect in motion. Moderate to severe TR.
continue supportive care
Evaluated by e ICU and cardiology doctors help
# Chest pain, due to CRP, very tender to touch, c/w Tylenol TID, PRN Dilaudid. Per family, Dilaudid is helping more.
# Dysphagia, likely secondary to recent intubation and illness. She seems to be swallowing better. Speech therapy recommended to do modified diet if family understands possibility of aspiration. Discussed with the family, agreed to do modified
diet for now.
# ALYSSIA/ Left renal atrophy (noted by CT)
Creatinine continues to trend up, with higher BUN
Monitor renal function, renally adjust medications. Ny in to monitor I/O closely
s/p IVF
s/p Pressure support to keep MAP >65. On Midodrine with parameters.
d/w nephrology, seems underlying CKD that progressed
Daughter (POA) would like to focus on comfort care, no hemodialysis which is reasonable.
Appreciate nephrology help
# Acute ischemic hepatitis
post shock
LFT coming down
Patient denies nausea, expect slow recovery
s/p IVF
# Right hip fracture s/p ORIF on 04/01/2025
She denies pain
d/w ortho service, PT as tolerated.
# Lactic acidosis with leukocytosis
Meet sepsis/ septic shock criteria now, possible aspiration pneumonitis
Empiric IV Abx total 5 days, last day 04/08. Renally adjusting the dose
# Essential Hypertension
cardiogenic and hypovolemic shock
IV steroid for shock , continue to wean off. Off now.
# Hypokalemia, replaced
# Mild acute blood loss anemia post fracture and surgery
s/p one unit of RBCs.
# hyponatremia
#Hyperlipidemia
No changes intended. Holding statin with liver injury
# Dementia
She is functional to an extent but now unable to retain informations. Daughter Madonna has POA and family agreed to her decisions.
# CODE STATUS, discussed with family. Patient is living with well stated DNR/DNI. Would like to pursue her wishes. Code is changed to DNR/DNI
Daughter Madonna P6/14, wants to pursue hospice for comfort, no hemodialysis
Total time spent to see the patient, examine the patient, review data and lab result, discuss treatment plan with patient, family, consultants nursing staff around 55 minutes
Anticipated Discharge: > 48 hours
Subjective/Interval History
-
Date of Service: April 08, 2025
She complains of chest discomfort, only Dialudid is helping, Tylenol not much
Objective Data
-
Labs:
Laboratory Results
04/08/25
04:25
WBC 14.6 H
Hgb 9.2 L
Hct 26.6 L
Plt Count 134
Sodium 133 L
Potassium 4.0
Chloride 98
Carbon Dioxide 19 L
BUN 119 H*
Creatinine 6.8 H*
Glucose 95
Calcium 8.0 L
Vital Signs:
Vital Signs
Temp Pulse Resp BP Pulse Ox
98.4 F 74 18 130/75 95
04/08/25 03:00 04/08/25 03:00 04/08/25 03:00 04/08/25 03:00 04/08/25 03:00
I&O
04/07/25 04/08/25 04/09/25
06:59 06:59 06:59
Intake Total 2240 / 2240
Output Total 325 / 325 150 / 150
Balance 1914 -150 / -150
[2025-04-08] MEDS: ROBITUSSIN 200 MG PO (08:09)
[2025-04-08] MEDS: TYLENOL 500 MG PO (08:10)
[2025-04-08] MEDS: LOPRESSOR 12.5 MG PO (08:10)
[2025-04-08] MEDS: NSS (PRESERVATIVE FREE) 10 ML IV (08:10)
[2025-04-08] MEDS: LOW STRENGTH ASPIRIN 81 MG PO (08:10)
[2025-04-08] MEDS: PROTONIX IV 40 MG IV (08:11)
[2025-04-08] MEDS: ProAmatine PO ×3 (08:12→17:58)
[2025-04-08] MEDS: HEPARIN 5000 UNITS SC (08:13)
--- NOTE | 2025-04-08 09:40 | HOSPNOTE ---
Addendum entered by Rosario Engle RN 04/08/25 13:25:
Spoke to Attending, she feels patient may qualify for inpatient hospice. Patient is now on comfort measures. Per Attending, follow up with daughter for official decision/inpatient hospice eligibility tomorrow. More information to follow.
Original Note:
Referral received. Spoke to daughter Madonna. Reviewed comfort measures/hospice inpatient vs home hospice. Answered all of her questions. She is going to discuss with her brother and get back to us with a decision. CM and Attending updated. More
information to follow.
[2025-04-08] MEDS: ROBITUSSIN PO (13:02)
[2025-04-08 15:20] VITALS: BP 116/67
--- NOTE | 2025-04-08 15:39 | CM ---
CM following re: discharge planning.
Reviewed pt's chart, met with [pt and daughter at bedside.
Hospice consult noted. Pt and daughter preferred hospice.
A referral to hospice made.
Per MD, pt is comfort care and will be evaluated for hospice care tomorrow.
D/C plan: comfort care/hospice care.
CM is available for emotional support.
[2025-04-08] MEDS: HEPARIN SC (20:49)
[2025-04-08 23:04] VITALS: BP 139/89
[2025-04-09] MEDS: DILAUDID 0.25 MG IV ×4 (05:15→15:21)
[2025-04-09 05:28] VITALS: BMI 29.3
[2025-04-09 07:05] VITALS: BP 139/76
--- NOTE | 2025-04-09 08:51 | W.PN.HOSP.TC ---
Addendum entered and electronically signed by Dontrell Wallace MD 04/09/25 10:42:
Addendum
Right upper extremity swelling, seems consistent with possibility of DVT.
Patient has discomfort, continue pain medicine
Patient might have DVT or others. Will need ultrasound to confirm or rule out DVT. Right now, she has good peripheral pulse and no significant swelling or discomfort. No erythema or redness that is consistent with possible infection. No fever.
I discussed with daughter, since the goal is comfort/hospice. Requiring ultrasound and possible systemic anticoagulation with close monitoring of hemoglobin not consistent with comfort level, systemic anticoagulation not advised in hospice care,
She verbalized understanding and agreed to the plan.
Original Note:
Today's Communication/Plan
-
discharge to inpt hospice when ready
Assessment / Plan
Assessment / Plan
Physical Exam
-
General: not in distress, complains of pain in chest
HEENT: Moist Mucous Membranes, Anicteric and PERRLA.
Respiratory: no wheezes. Good air/ did not hear rales
Cardiac: S1/S2; tender chest wall
GI: Soft, Nontender, Nondistended and Normal Bowel Sounds
Musculoskeletal: No joint swelling. �Negative Edema, Left Lower Extrem. Clean surgical site right lateral thigh
Skin: Warm, Dry and no rash
Neuro:AAOX to self and surroundings only, forgetful, followed simple commands appropriately, moved extremities to commands.
Psych: Calm
# S/P cardiac arrest
Peak troponin 2.6--most likely acute nonischemic myocardial injury in the setting of hypotension (code) and multi organ dysfunction, particularly ALYSSIA. Poor candidate for aggressive measures.
VDRF, extubated 04/04 to 2 liters now. Good lung exam this morning
S/P IV heparin gtt, c/w oral aspirin
Re-introduce BB slowly but bradycardia noted
Echo is reviewed, LVEF 50-55%, septal wall defect in motion. Moderate to severe TR.
continue supportive care
Evaluated by e ICU and cardiology doctors help
# Chest pain, due to CRP, tender to touch, c/w Tylenol TID, Lidocaine patch, PRN Dilaudid. Per family, Dilaudid is helping more.
# Dysphagia, likely secondary to recent intubation and illness. She seems to be swallowing better. Speech therapy recommended to do modified diet if family understands possibility of aspiration. Discussed with the family, agreed to do modified
diet for now.
# ALYSSIA/ Left renal atrophy (noted by CT)
Creatinine continues to trend up, with higher BUN
Monitor renal function, renally adjust medications. Ny in to monitor I/O closely
s/p IVF
s/p Pressure support to keep MAP >65. On Midodrine with parameters.
d/w nephrology, seems underlying CKD that progressed
Daughter (POA) would like to focus on comfort care, no hemodialysis which is reasonable.
Appreciate nephrology help
# Anorexia due to uremia
# Acute ischemic hepatitis
post shock
LFT coming down
Patient denies nausea, but reports anorexia.
s/p IVF
# Right hip fracture s/p ORIF on 04/01/2025
She denies pain
d/w ortho service, PT as tolerated.
# Lactic acidosis with leukocytosis
Meet sepsis/ septic shock criteria now, possible aspiration pneumonitis
Empiric IV Abx total 5 days, last day 04/08. Renally adjusted the dose
# Essential Hypertension
cardiogenic and hypovolemic shock
IV steroid for shock , continue to wean off. Off now.
# Hypokalemia, replaced
# Mild acute blood loss anemia post fracture and surgery
s/p one unit of RBCs.
# hyponatremia
#Hyperlipidemia
No changes intended. Holding statin with liver injury
# Dementia
She is functional to an extent but now unable to retain informations. Daughter Madonna has POA and family agreed to her decisions.
# CODE STATUS, discussed with family. Patient is living with well stated DNR/DNI. Would like to pursue her wishes. Code is changed to DNR/DNI
d/w Daughter Madonna RIOS on 04/08 & 04/08, wants to pursue hospice for comfort and all in agreement, no hemodialysis. Consulted case management specialist.
Total discharge time spent to see the patient, examine the patient, review data and lab result, discuss treatment/ discharge plan/ goal of care plan with patient, family, hospice nurse and nursing staff around 65 minutes
Anticipated Discharge: Today
Subjective/Interval History
-
Date of Service: April 09, 2025
Patient reports aches/ mostly in chest
Loss of appetite
Objective Data
-
Vital Signs:
Vital Signs
Temp Pulse Resp BP Pulse Ox
98.0 F 77 15 139/76 97
04/09/25 07:05 04/09/25 07:05 04/09/25 07:05 04/09/25 07:05 04/09/25 07:05
I&O
04/08/25 04/09/25 04/10/25
06:59 06:59 06:59
Intake Total 2240 / 2240 655 / 655
Output Total 325 / 325 675 / 675
Balance 1914 / 1914 - /
[2025-04-09] MEDS: HEPARIN SC (08:59)
[2025-04-09] MEDS: TYLENOL PO (08:59)
[2025-04-09] MEDS: LOW STRENGTH ASPIRIN PO (08:59)
[2025-04-09] MEDS: NSS (PRESERVATIVE FREE) 10 ML IV (09:01)
[2025-04-09] MEDS: PROTONIX IV 40 MG IV (09:02)
[2025-04-09] MEDS: LIDOCAINE 4% PATCH 1 PATCH TOPICAL (09:03)
[2025-04-09] MEDS: ZOFRAN 4 MG IV (09:05)
[2025-04-09] MEDS: ProAmatine PO ×2 (09:30→14:04)
[2025-04-09 11:00] LABS: Calcium 7.9 mg/dl (8.4-10.2); Carbon Dioxide 19 mmol/L (22-30); Chloride 98 mmol/L (98-107); Estimated Creatinine Clearance 5 ml/min; Glucose 87 mg/dl (70-99); Sodium 135 mmol/L (135-145); eGFR 4.97
[2025-04-09 11:13] LABS: Blood Urea Nitrogen 128 mg/dl (7-17)
--- NOTE | 2025-04-09 11:39 | W.DCSUMMARY ---
Discharge Summary
Discharge Data
Date of Admission: 04/01/25
Date of Discharge: 04/09/25
-
Pending Results: No
Hospital Course
84 years old female presented to the hospital after mechanical fall. She sustained right hip fracture. Patient was admitted to the hospital for surgical repair. She was evaluated by orthopedic service. Patient underwent right hip hemiarthroplasty
by Dr. Gonzalez on April 01, 2025, no complications reported. Postoperatively, patient started to have hypotension and later had pulseless electrical activity arrest. She underwent through CPR and was intubated. She was noticed to have elevation of
troponin up to peak 2.6. She also had acute kidney injury. Echocardiogram showed LVEF 50-55%, septal wall defect in motion. Moderate to severe TR. Patient was followed by financial center manager, freight car repairer, yardage estimator doctors. Patient received
intravenous heparin while monitoring her troponin. Loan Inspector did not feel the cause of patient's cardiac arrest was primarily cardiac as troponin was mostly consistent with acute nonischemic myocardial injury in the setting of hypotension and
multiple organ dysfunction. Patient did not have event of chest pain. EKG was not specific per freight car repairer. Patient also had CT angiogram of chest, abdomen pelvis that did not show pulmonary embolism or aortic dissection/aortic aneurysm. kidney
function did not improve. Creatinine started to go up with blood urea nitrogen and she had gap metabolic acidosis. She received intravenous fluids with Ny catheter to avoid retention. She also received citrus dose steroids. She had elevated
white blood cell count and was given intravenous antibiotic for possibility of aspiration pneumonitis during the cardiac arrest. She had acute blood loss anemia post hip surgery and was given 1 unit of blood transfusion. Patient received pressure
support medications. Her vital signs including blood pressure started to improve and she was able to come off pressure support medications. Her oxygenation improved and was extubated on 04/04 to room air. Patient was evaluated by speech therapist
recommended comfort feeding if family and patient accepted risk of aspiration. Subsequently and with the stabilizing of her vital signs, patient was transferred to telemetry floor. She continued to be followed by freight car repairer and yardage estimator.
Cardiology felt that her cardiac status remained stable and did not recommend cardiac catheterization primarily due to lack of anginal symptoms and worsening kidney function. Patient continued to struggle with low urine output and started to have
poor appetite. Patient complained of chest discomfort/pain which was related to musculoskeletal pain following CPR administration. Patient received pain medication including Tylenol and low-dose Dilaudid as needed only. Kidney function did not
improve. City Detective offered hemodialysis to the patient and family. Family wanted to pursue patient wishes. CODE STATUS converted back to DNR/DNI per her living wishes. Prognosis remained guarded. Family/daughter who had power of collections attorney
wanted to pursue comfort care. aerial planting and cultivation manager and hospice consult were consulted. Patient was converted to inpatient hospice to continue care and managing her discomfort.
Discharge Plan
-
Patient Disposition: Hospice - Inpatient
Discharge Diagnosis/Procedures: Renal failure
Referrals:
Carrie Zelaya MD [Family Provider, Internal Medicine]
Prescriptions:
Discontinued
metoprolol tartrate 100 mg Tablet
150 mg PO DAILY
metoprolol tartrate 100 mg Tablet
100 mg PO QPM
donepezil 10 mg Tablet
10 mg PO HS
gemfibrozil 600 mg Tablet
600 mg PO HS
irbesartan 150 mg Tablet
150 mg PO DAILY
memantine 5 mg Tablet
5 mg PO DAILY
hydrochlorothiazide 12.5 mg Tablet
12.5 mg PO DAILY
Discharge Orders:
Discharge Patient (As Directed); Ordered 04/09/25
Ordered By: Dontrell Wallace
Discharge Date and Time
Print Language: LITHUANIAN
--- NOTE | 2025-04-09 12:13 | CM ---
CM following re: discharge planning.
Reviewed pt's chart.
per MD, pt continues on comfort care and will be admitted to inpatient hospice with hospice GIP.
D/C plan: Inpatient hospice hospice GIP
CM is available for emotional support.
--- NOTE | 2025-04-09 14:52 | CHAP ---
Sussy was resting - she woke up upon hearing her name, and greeted me with a sweet smile and gracious words. She said she is at peace, and welcomed prayer. Emotional and spiritual support provided, along with a prayer blanket and assurance of
our on-going availability.
[2025-04-09 15:03] LABS: Vitamin B1, Whole Blood 130 nmol/L (70-180)
== END 2025-04-09 15:35 | disposition hospice, inpatient (51) | DRG 521 ==
LOC: 2 SOUTH 01:29
PROVIDERS: General Practice; Hospitalist; Internal Medicine Critical Care Medicine; Nurse Practitioner Family; Nurse Practitioner Primary Care; Physician Assistant; Specialist; ADMITTING PHYSICIAN Internal Medicine; ATTENDING PHYSICIAN Internal Medicine; CONSULT PHYSICIAN Internal Medicine; CONSULT PHYSICIAN Orthopaedic Surgery; EMERGENCY PHYSICIAN Emergency Medicine; FAMILY PHYSICIAN Internal Medicine; OTHER PHYSICIAN Internal Medicine Cardiovascular Disease; OTHER PHYSICIAN Specialist
PROC: 0SRR0J9 Replacement of Right Hip Joint, Femoral Surface with Synthetic Substitute, Cemented, Open Approach (ICD-10-PCS; 2025-04-01)
PROC: 0BH17EZ Insertion of Endotracheal Airway into Trachea, Via Natural or Artificial Opening (ICD-10-PCS; 2025-04-02)
PROC: 5A1945Z Respiratory Ventilation, 24-96 Consecutive Hours (ICD-10-PCS; 2025-04-02)
PROC: 03HY32Z Insertion of Monitoring Device into Upper Artery, Percutaneous Approach (ICD-10-PCS; 2025-04-02)
PROC: 02HV33Z Insertion of Infusion Device into Superior Vena Cava, Percutaneous Approach (ICD-10-PCS; 2025-04-02)
PROC: 5A12012 Performance of Cardiac Output, Single, Manual (ICD-10-PCS; 2025-04-02)
PROC: 30233N1 Transfusion of Nonautologous Red Blood Cells into Peripheral Vein, Percutaneous Approach (ICD-10-PCS; 2025-04-05)
DX: S72.001A Fracture of unspecified part of neck of right femur, initial encounter for closed fracture (principal); A41.9 Sepsis, unspecified organism; I46.9 Cardiac arrest, cause unspecified; J69.0 Pneumonitis due to inhalation of food and vomit; K72.00 Acute and subacute hepatic failure without coma; R65.21 Severe sepsis with septic shock; J96.02 Acute respiratory failure with hypercapnia; J96.01 Acute respiratory failure with hypoxia; R57.0 Cardiogenic shock; R57.1 Hypovolemic shock; E87.20 Acidosis, unspecified; N17.9 Acute kidney failure, unspecified; I5A Non-ischemic myocardial injury (non-traumatic); D62 Acute posthemorrhagic anemia; E87.1 Hypo-osmolality and hyponatremia; R13.10 Dysphagia, unspecified; I10 Essential (primary) hypertension; E78.00 Pure hypercholesterolemia, unspecified; F03.B0 Unspecified dementia, moderate, without behavioral disturbance, psychotic disturbance, mood disturbance, and anxiety; W18.39XA Other fall on same level, initial encounter; R10.9 Unspecified abdominal pain; Z66 Do not resuscitate; I07.1 Rheumatic tricuspid insufficiency; E87.6 Hypokalemia; R22.31 Localized swelling, mass and lump, right upper limb; N26.1 Atrophy of kidney (terminal); M16.11 Unilateral primary osteoarthritis, right hip; Z96.642 Presence of left artificial hip joint; Z87.891 Personal history of nicotine dependence; Z11.52 Encounter for screening for COVID-19
CPT/HCPCS: 36600; 70450; 71045; 71275; 72170; 73502; 73552; 74018; 74174; 80048; 80053; 80061; 80202; 81003; 81015; 82150; 82248; 82330; 82570; 82805; 82962; 83010; 83036; 83540; 83605; 83615; 83690; 83735; 83880; 84100; 84132; 84300; 84302; 84425; 84478; 84484; 85025; 85027; 85610; 85730; 86850; 86870; 86900; 86901; 86902; 86905; 86920; 86922; 87040; 87070; 87086; 87205; 87502; 87641; 87811; 92526; 92610; 93005; 93306; 93970; 94002; 94003; 96374; 97163; 97164; 97166; 97168; 97530; 97535; 99284; C1713; C1776; J2997; P9016; Q9967

== ENCOUNTER 2025-04-09 15:50 | Inpatient (IN) | payer OTHER, SELFPAY ==
--- NOTE | 2025-04-09 11:51 | HOSPNOTE ---
Admitted on to hopce services under [facility] level of care for management of symptoms that can not be managed in the outpatient setting. Patient to be moved to when bed available. Attending and admissions aware. Patient is AAOx2 resting in the bed
surrounded by several family members. Calm and pleasant. voice hoarse and speech is soft. Breathing nonlabored. Complaining of mild Chest soreness and requesting something for pain. Coordinated care with floor nurse Twyla. Any questions and concerns
addressed with family. Will be seen by hospice nurse daily.
[2025-04-09 16:00] VITALS: BP 141/68
--- NOTE | 2025-04-09 16:14 | PTCARENOTE ---
Received pt from [address] [place] [address] on hospice. Pt in a bed with hoarse voice and soft speech. Ny catheter in place. Lidocaine patch on chest. Care ongoing.
[2025-04-09] MEDS: DILAUDID 0.25 MG IV ×5 (16:35→23:31)
[2025-04-09 19:58] VITALS: BP 124/72
[2025-04-09] MEDS: DILAUDID 50 IV (23:59)
[2025-04-10 07:15] VITALS: BP 138/72
[2025-04-10] MEDS: DILAUDID 0.25 MG IV ×4 (08:43→12:26)
--- NOTE | 2025-04-10 10:49 | W.PN.HOSP.TC ---
Today's Communication/Plan
-
Assessment / Plan
Assessment / Plan
NAD, pale
MMM
CTABL
S1/S2
Soft, NT, ND, BS+
ALYSSIA with worsening renal function creat 7.4 as of 04/09. BUN 128. Developing a slight metabolic dosis. Family did not want to go towards hemodialysis and hence was made comfort care and hospice.
Cardiac arrest unclear as to etiology. Now DNR/DNI
Provide dignity and hygiene
Anticipated Discharge: > 48 hours
Subjective/Interval History
-
Date of Service: April 10, 2025
seen and examined. daughter at bedside
for the most part Ms. Marrero states that she is comfortable. has some pain butg managed well
Objective Data
-
Vital Signs:
Vital Signs
Temp Pulse Resp BP Pulse Ox
98.4 F 84 16 138/72 96
04/10/25 07:15 04/10/25 07:15 04/10/25 07:15 04/10/25 07:15 04/10/25 10:00
I&O
04/09/25 04/10/25 04/11/25
06:59 06:59 06:59
Intake Total 90 / 90
Output Total 300 / 300 550 / 550
Balance -210 / -210 -550 / -550
--- NOTE | 2025-04-10 12:57 | HOSPNOTE ---
Family at bedside patient was complaining of pain and was given her second PRN dose and continues on a drip. The patient right hand is plus 3 edema and is elevated on a pillow. Patient needs to be medicated prior to care. Patient will be seen daily
by hospice nurse. Patient continues to be inpatient appropriate for pain management.
--- NOTE | 2025-04-10 13:02 | PTCARENOTE ---
Patient currently on step 1. 0.3mg/hr. Pt received 3 breakthrough doses as ordered over the past 3 hours.Per protocol moved up to step 2. Now on step 2 (0.5mg/hr) per protocol. Plan of care ongoing. comfort measures in place.
--- NOTE | 2025-04-10 13:41 | CM ---
CM reviewed alise, patient remains on GIP level of care. CM will continue to follow for all patient/family support/needs.
Plan; GIP
[2025-04-10 19:45] VITALS: BP 118/78
[2025-04-11 07:25] VITALS: BP 134/83
--- NOTE | 2025-04-11 10:37 | HOSPNOTE ---
Patient is on a dilaudid drip, patient is awake very soft voice was given 2 PRN doses for pain. The drip was already increased to step 2. Family at bedside and emotional support provided. The patient remains inpatient appropriate for pain management
requiring IV medications. The patient will be seen daily by hospice nurse. The patient does require medications prior to any turning or repositioning. Nurse updated.
--- NOTE | 2025-04-11 10:41 | W.PN.HOSP.TC ---
Today's Communication/Plan
-
Assessment / Plan
Assessment / Plan
NAD, pale
MMM
CTABL
S1/S2
Soft, NT, ND, BS+
ALYSSIA with worsening renal function creat 7.4 as of 04/09. BUN 128. Developing a slight metabolic dosis. Family did not want to go towards hemodialysis and hence was made comfort care and hospice.
Cardiac arrest unclear as to etiology. Now DNR/DNI
Provide dignity and hygiene
Provide comfort care, currently on Dilaudid drip
Anticipated Discharge: > 48 hours
Subjective/Interval History
-
Date of Service: April 11, 2025
Seen and examined. No overnight event
Objective Data
-
Vital Signs:
Vital Signs
Temp Pulse Resp BP Pulse Ox
98.7 F 104 16 134/83 92
04/11/25 07:25 04/11/25 07:25 04/11/25 07:25 04/11/25 07:25 04/11/25 07:25
I&O
04/10/25 04/11/25 04/12/25
06:59 06:59 06:59
Intake Total 90 / 90 0 / 0
Output Total 300 / 300 1350 / 1350
Balance -210 / -210 -1350 / -1350
--- NOTE | 2025-04-11 13:04 | CM ---
CM following re: discharge planning.
Reviewed pt's chart.
Pt continue inpatient hospice level of care with hospice GIP.
Plan: inpatient hospice GIP.
CM is available for emotional support.
[2025-04-11] MEDS: DILAUDID 0.5 MG IV (14:21)
[2025-04-11 20:24] VITALS: BP 136/78
[2025-04-12] MEDS: DILAUDID 50 IV (06:17)
--- NOTE | 2025-04-12 08:38 | HOSPNOTE ---
RESPIRATORY PHYSICIAN VISITED 84 YEAR OLD PATIENT TO CONDUCT INITIAL SUPERVISOR POLE YARD ASSESSMENT. PATIENT RECENTLY ADMITTED ONTO HOSPICE SERVICES AND GIP LEVEL OF CARE WITH THE PRIMARY DIAGNOSIS OF ACUTE RENAL FAILURE, UNSPECIFIED. SUPERVISOR POLE YARD SPOKE WITH NURSE BRIEFLY
FOR UPDATES, NURSE REPORTED PATIENT HAD A GOOD NIGHT, ON STEP 2 OF DRIP, SLEEPING, AND COMFORTABLE. SUPERVISOR POLE YARD GREETED PATIENT WHILE ENTERING PATIENT'S ROOM. PATIENT ASLEEP AND APPEARS TO BE RESTING COMFORTABLY. PATIENT AWAKEN TO SUPERVISOR POLE YARD VOICE AND SAID HI. SUPERVISOR POLE YARD
ASKED PATIENT IF SHE WANTED THE BLINDS OPEN OR THE TV ON, PATIENT RESPONDED THE BLINDS OPEN. SUPERVISOR POLE YARD OPENED PATIENT'S BLIND AND PATIENT SMILED. NO FAMILY MEMBERS WERE PRESENT AT PATIENT'S BEDSIDE. SUPERVISOR POLE YARD ASKED PATIENT HOW SHE WAS DOING, PATIENT RESPONDED
TIRED, SUPERVISOR POLE YARD ASKED PATIENT WHY SHE FELT TIRED, PATIENT RESPONDED NOT SURE WHY, NUT IT IS WHAT IT IS. PATIENT REPORTED SHE SLEEPS PRETTY GOOD. SUPERVISOR POLE YARD ASKED PATIENT WHAT WAS HER TURTLE/ELEPHANT NAME WAS, PATIENT RESPONDED LITTLE BABY. PATIENT HELD LITTLE
BABY TIGHTLY. PATIENT REPORTED SHE HAS 2 CHILDREN LILIBETH AND SURINDER AND SHE RAISED THEM THE BEST SHE COULD. PATIENT UNABLE TO RECALL HOW MANY GRANDCHILDREN, GREAT GRANDCHILDREN, HER OCCUPATION, AND HOBBIES. PATIENT ASKED TO HOLD SUPERVISOR POLE YARD HAND AND
RESPONDED SUPERVISOR POLE YARD HANDS WERE WARM. PATIENT REPORTED SHE DIDN'T NEED ANYTHING. PATIENT BECAME EMOTIONAL AFTER SUPERVISOR POLE YARD PRAYED WITH HER. PATIENT ALERT, PLEASANT, ENGAGING, CONFUSED, FORGETFUL, AND IN GOOD SPIRITS. PRAYER AND EMOTIONAL SUPPORT PROVIDED. SUPERVISOR POLE YARD
CONTACTED PATIENT'S DAUGHTER LILIBETH TO CHECK ON HER AND PROVIDE UPDATES FROM TODAY'S VISIT. LILIBETH REPORTED THE FAMILY IS MAKING IT. LILIBETH REPORTED SHE JUST RETURNED TO WORK AND THAT SHE FEELS GUILTY NOT BEING HERE WITH PATIENT DURING THE DAY
BUT SHE COMES AFTER WORK AND SPENDS THE NIGHT. EMOTIONAL SUPPORT PROVIDED. LILIBETH REPORTED PATIENT HAS 6 GRANDCHILDREN AND 5 GREAT GRANDCHILDREN AND THEY HAVE BEEN VISITING PATIENT DAILY. FAMILY APPEARS TO BE SUPPORTIVE AND COPING APPROPRIATELY.
LILIBETH REPORTED PATIENT WORKED IN HER [employer] WHEN HE WAS LITTLE AND THEN SHE WORKED FOR [employer] AND RETIRED FROM THEM WHEN PATIENT AND SPOUSE MOVED TO [place]. PATIENT LOVE [place] AND HAD SEVERAL GARDENS. PATIENT VERY ARTISTIC
LOVED DRAWING AND STAIN GLASS, ENJOYED WORD SEARCH, CROSSWORD PUZZLES, AND SUDOKU. PATIENT IS ADVENTIST AND IS NOT AFFILIATED WITH A TAOISM, ALTHOUGH SHE ATTENDED WITH FAMILY. PATIENT WISHES ARE TO BE CREMATED AND THE FAMILY IS UTILIZING [employer]
[facility] IN [place] FOR ARRANGEMENTS.EMOTIONAL SUPPORT PROVIDED.
PATIENT MEETS [facility] FOR SN ASSESSMENTS AND MANAGEMENT OF PAIN THAT COULD NOT BE MANAGED AT HOME AND/OR IN AN OUTPATIENT SETTING. DISCHARGE PLANNING CONTINUES.
SUPERVISOR POLE YARD WILL CONDUCT VISITS ONCE A WEEK WHILE ON GIP LEVEL OF CARE TO PROVIDE SUPPORTIVE SERVICES AND TO MONITOR FOR ADDITIONAL SERVICES.
[2025-04-12 08:45] VITALS: BP 142/73
--- NOTE | 2025-04-12 12:51 | HOSPNOTE ---
Family at bedside and emotional support provided. Patient was sleeping appeared comfortable continues on a dilaudid drip and does get PRN doses prior to any movement. Patient continues to be inpatient appropriate for pain management requiring IV
medications. Patient will be seen daily by hospice. Encouraged continued medications prior to care.
--- NOTE | 2025-04-12 13:12 | W.PN.HOSP.TC ---
Today's Communication/Plan
-
Assessment / Plan
Assessment / Plan
NAD, pale
MMM
CTABL
S1/S2
Soft, NT, ND, BS+
ALYSSIA with worsening renal function creat 7.4 as of 04/09. BUN 128. Developing a slight metabolic dosis. Family did not want to go towards hemodialysis and hence was made comfort care and hospice.
Cardiac arrest unclear as to etiology. Now DNR/DNI
Provide dignity and hygiene
Provide comfort care, currently on Dilaudid drip
Anticipated Discharge: > 48 hours
Subjective/Interval History
-
Date of Service: April 12, 2025
seen and examiend.
clinically remains unchanged
Objective Data
-
Vital Signs:
Vital Signs
Temp Pulse Resp BP Pulse Ox
99.2 F 99 17 142/73 93
04/12/25 08:45 04/12/25 08:45 04/12/25 08:45 04/12/25 08:45 04/12/25 08:45
I&O
04/11/25 04/12/25 04/13/25
06:59 06:59 06:59
Intake Total 0 / 0 75 / 75
Output Total 1350 / 1350 1275 / 1275
Balance -1350 / -1350 -1200 / -1200
[2025-04-12] MEDS: DILAUDID 0.5 MG IV (13:25)
[2025-04-12 19:23] VITALS: BP 149/85
[2025-04-12] MEDS: DILAUDID 0.25 MG IV (21:10)
[2025-04-13] MEDS: DILAUDID 0.5 MG IV ×3 (09:23→19:13)
[2025-04-13 11:20] VITALS: BP 134/89
--- NOTE | 2025-04-13 11:29 | HOSPNOTE ---
Patient is on a dilaudid drip for pain management. Has received a PRN dose prior to care. Patient appetite is poor, soft weak voice noted. Patient will be seen daily by hospice nurse and please continue to medicate prior to any care. Family at
bedside and emotional support provided.
[2025-04-13] MEDS: ATIVAN 0.5 MG PO (13:35)
--- NOTE | 2025-04-13 15:31 | W.PN.HOSP.TC ---
Today's Communication/Plan
-
Assessment / Plan
Assessment / Plan
NAD, pale
MMM
CTABL
S1/S2
Soft, NT, ND, BS+
ALYSSIA with worsening renal function creat 7.4 as of 04/09. BUN 128. Developing a slight metabolic dosis. Family did not want to go towards hemodialysis and hence was made comfort care and hospice.
Cardiac arrest unclear as to etiology. Now DNR/DNI
Provide dignity and hygiene
Provide comfort care, currently on Dilaudid drip
Anticipated Discharge: > 48 hours
Subjective/Interval History
-
Date of Service: April 13, 2025
Seen and examined. Appears comfortable. Spoke with granddaughter at just outside of the room.
Objective Data
-
Vital Signs:
Vital Signs
Temp Pulse Resp BP Pulse Ox
97.6 F 139 17 134/89 91
04/13/25 11:20 04/13/25 11:20 04/13/25 11:20 04/13/25 11:20 04/13/25 11:20
I&O
04/12/25 04/13/25 04/14/25
06:59 06:59 06:59
Intake Total 75 / 75 240 / 240
Output Total 1275 / 1275 1500 / 1500
Balance -1200 / -1200 -1260 / -1260
[2025-04-13 20:12] VITALS: BP 136/98
[2025-04-14] MEDS: DILAUDID 0.5 MG IV ×5 (01:33→12:51)
[2025-04-14 07:18] VITALS: BP 152/78
--- NOTE | 2025-04-14 10:22 | HOSPNOTE ---
Patient is agitated and confused trying to climb out of bed. Patient continues on a dilaudid drip and was medicated with a PRN dose of dilaudid and ativan. Patient complains of chest pain with any movement. Patient continues to be inpatient
appropriate for management of pain and anxiety requiring IV medications. Encouraged family to ask for medications if they feel patient is experiencing any discomfort or anxiety. Patient will be seen daily by hospice.
[2025-04-14] MEDS: ATIVAN 0.5 MG PO ×2 (10:27→18:29)
--- NOTE | 2025-04-14 13:39 | W.PN.HOSP.TC ---
Today's Communication/Plan
-
Assessment / Plan
Assessment / Plan
NAD, pale
MMM
CTABL
S1/S2
Soft, NT, ND, BS+
ALYSSIA with worsening renal function creat 7.4 as of 04/09. BUN 128. Developing a slight metabolic dosis. Family did not want to go towards hemodialysis and hence was made comfort care and hospice.
Cardiac arrest unclear as to etiology. Now DNR/DNI
Provide dignity and hygiene
Provide comfort care, currently on Dilaudid drip
Anticipated Discharge: > 48 hours
Subjective/Interval History
-
Date of Service: April 14, 2025
Seen and examined. No new complaints. No acute overnight events.
Objective Data
-
Vital Signs:
Vital Signs
Temp Pulse Resp BP Pulse Ox
99.1 F 111 16 152/78 97
04/14/25 07:18 04/14/25 07:18 04/14/25 07:18 04/14/25 07:18 04/14/25 07:18
I&O
04/13/25 04/14/25 04/15/25
06:59 06:59 06:59
Intake Total 240 / 240 120 / 120
Output Total 1500 / 1500 1250 / 1250
Balance -1260 / -1260 -1130 / -1130
[2025-04-14] MEDS: DILAUDID 50 IV (13:54)
[2025-04-14] MEDS: DILAUDID 1 MG IV (18:16)
[2025-04-14] MEDS: ROBINUL 0.2 MG IV (18:35)
[2025-04-15 07:10] VITALS: BP 136/70
[2025-04-15] MEDS: DILAUDID 1 MG IV ×2 (08:30→12:36)
[2025-04-15] MEDS: ATIVAN 1 MG IV (09:28)
--- NOTE | 2025-04-15 11:41 | W.PN.HOSP.TC ---
Today's Communication/Plan
-
Assessment / Plan
Assessment / Plan
NAD, pale
MMM
CTABL
S1/S2
Soft, NT, ND, BS+
ALYSSIA with worsening renal function creat 7.4 as of 04/09. BUN 128. Developing a slight metabolic dosis. Family did not want to go towards hemodialysis and hence was made comfort care and hospice.
Cardiac arrest unclear as to etiology. Now DNR/DNI
Provide dignity and hygiene
Provide comfort care, currently on Dilaudid drip
Anticipated Discharge: > 48 hours
Subjective/Interval History
-
Date of Service: April 15, 2025
seen and examined. clinically, unchanged
Objective Data
-
Vital Signs:
Vital Signs
Temp Pulse Resp BP Pulse Ox
102.3 F H 131 12 136/70 73
04/15/25 07:10 04/15/25 07:10 04/15/25 07:10 04/15/25 07:10 04/15/25 07:10
I&O
04/14/25 04/15/25 04/16/25
06:59 06:59 06:59
Intake Total 120 / 120 0 / 0
Output Total 1250 / 1250 650 / 650
Balance -1130 / -1130 -650 / -650
--- NOTE | 2025-04-15 13:48 | PTCARENOTE ---
Patient with no heart tones upon auscultation. made aware. Son at bedside.
--- NOTE | 2025-04-15 13:54 | W.PN.DEATH ---
Pronouncement of
-
Called to see patient to pronounce.
No spontaneous heart tones or respirations noted.
Patient not responsive to verbal stimuli.
Patient is pronounced .
Time of : 13:48
Date of : 04/15/25
Cause of : Acute renal failure
Acute ischemic hepatitis
Family Notified: Yes
--- NOTE | 2025-04-15 14:29 | W.DCSUMMARY ---
Discharge Summary
Discharge Data
Date of Admission: 04/09/25
Date of Discharge: 04/15/25
-
Pending Results: No
Hospital Course
84 years old female presented to the hospital after mechanical fall. She sustained right hip fracture. Patient was admitted to the hospital for surgical repair. She was evaluated by orthopedic service. Patient underwent right hip hemiarthroplasty
by Dr. Gonzalez on April 01, 2025, no complications reported. Postoperatively, patient started to have hypotension and later had pulseless electrical activity arrest. She underwent through CPR and was intubated. She was noticed to have elevation of
troponin up to peak 2.6. She also had acute kidney injury. Echocardiogram showed LVEF 50-55%, septal wall defect in motion. Moderate to severe TR. Patient was followed by landscape painter, county agricultural agent, supervisor shipfitters doctors. Patient received
intravenous heparin while monitoring her troponin. Airconditioning Plant Operator did not feel the cause of patient's cardiac arrest was primarily cardiac as troponin was mostly consistent with acute nonischemic myocardial injury in the setting of hypotension and
multiple organ dysfunction. Patient did not have event of chest pain. EKG was not specific per county agricultural agent. Patient also had CT angiogram of chest, abdomen pelvis that did not show pulmonary embolism or aortic dissection/aortic aneurysm. kidney
function did not improve. Creatinine started to go up with blood urea nitrogen and she had gap metabolic acidosis. She received intravenous fluids with Ny catheter to avoid retention. She also received citrus dose steroids. She had elevated
white blood cell count and was given intravenous antibiotic for possibility of aspiration pneumonitis during the cardiac arrest. She had acute blood loss anemia post hip surgery and was given 1 unit of blood transfusion. Patient received pressure
support medications. Her vital signs including blood pressure started to improve and she was able to come off pressure support medications. Her oxygenation improved and was extubated on 04/04 to room air. Patient was evaluated by speech therapist
recommended comfort feeding if family and patient accepted risk of aspiration. Subsequently and with the stabilizing of her vital signs, patient was transferred to telemetry floor. She continued to be followed by county agricultural agent and supervisor shipfitters.
Cardiology felt that her cardiac status remained stable and did not recommend cardiac catheterization primarily due to lack of anginal symptoms and worsening kidney function. Patient continued to struggle with low urine output and started to have
poor appetite. Patient complained of chest discomfort/pain which was related to musculoskeletal pain following CPR administration. Patient received pain medication including Tylenol and low-dose Dilaudid as needed only. Kidney function did not
improve. Project Development Coordinator offered hemodialysis to thepas patient and family. Family wanted to pursue patient wishes. CODE STATUS converted back to DNR/DNI per her living wishes. Prognosis remained guarded. Family/daughter who had power of corporate associate attorney
wanted to pursue comfort care. specialist managers and hospice consult were consulted. Patient was converted to inpatient hospice to continue care and managing her discomfort.
Unfortunately and sadly Ms. Sussy Marrero on 04/15/2025
Cause of was
Acute progressive renal failure
Circulatory shock
Bradycardia
Slow atrial fibrillation/junctional rhythm
Discharge Plan
-
Referrals:
UNKNOWN,NO INTERVIEW [Family Provider]
Discharge Date and Time
Print Language: PERSIAN
--- NOTE | 2025-04-16 08:07 | CM ---
Patient on 04/14/25 @ 1:48PM.
--- NOTE | 2025-04-16 08:09 | CM ---
Patient on 04/15/25 @ 1:48PM.
== END 2025-04-15 13:48 | disposition expired | DRG 951 ==
LOC: 2 NORTH 15:50
PROVIDERS: ADMITTING PHYSICIAN Internal Medicine; ATTENDING PHYSICIAN Hospitalist
DX: Z51.5 Encounter for palliative care (principal); N17.9 Acute kidney failure, unspecified; R57.9 Shock, unspecified; I5A Non-ischemic myocardial injury (non-traumatic); D62 Acute posthemorrhagic anemia; E87.20 Acidosis, unspecified; I46.9 Cardiac arrest, cause unspecified; I48.91 Unspecified atrial fibrillation; Z66 Do not resuscitate